=== PATIENT | female | born 1990 | race Caucasian/White ===

== ENCOUNTER 2024-04-23 10:58 | Outpatient (CLI) | payer BC, MEDICAID, SELFPAY ==
--- NOTE | 2024-04-23 11:07 | CTR_ITS ---
PROCEDURE INFORMATION: Exam: CT Chest With Contrast; Diagnostic Exam date and time: 04/23/2024 11:15 AM Age: 34 years old Clinical indication: Condition or disease; Other: Malignant neoplasm of anal canal; Patient HX: Follow up from colonoscopy, recent diagnosis of anal cancer TECHNIQUE: Imaging protocol: Diagnostic computed tomography of the chest with contrast. Radiation optimization: All CT scans at this facility use at least one of these dose optimization techniques: automated exposure control; mA and/or kV adjustment per patient size (includes targeted exams where dose is matched to clinical indication); or iterative reconstruction. Contrast material: OMNI 350; Contrast volume: 100 ml; Contrast route: INTRAVENOUS (IV); COMPARISON: No relevant prior studies available. RADIATION DOSE METRICS: Total DLP (mGy-cm): 450.52 FINDINGS: Thyroid: Grossly unremarkable. Lungs: No focal consolidation. Pleural spaces: No pleural effusion. No pneumothorax. Heart: No cardiomegaly. No pericardial effusion. Mediastinal space: Trachea and central airways are grossly patent. No evidence of mediastinal mass or hematoma. Lymph nodes: No evidence of mediastinal or hilar adenopathy. Vasculature: No aneurysmal dilatation of the thoracic aorta. No evidence of dissection. Though this study is not tailored to evaluate for pulmonary thromboembolism, there is no evidence of PE within limitations of respiratory motion. Bones/joints: No evidence of acute fracture or aggressive osseous lesion. Soft tissues: No fluid collection or hematoma in the superficial soft tissues. PROCEDURE INFORMATION: Exam: CT Abdomen And Pelvis With Contrast Exam date and time: 04/23/2024 11:15 AM Age: 34 years old Clinical indication: Condition or disease; Other: Malignant neoplasm of anal canal; Patient HX: Follow up from colonoscopy, recent diagnosis of anal cancer TECHNIQUE: Imaging protocol: Computed tomography of the abdomen and pelvis with contrast. Radiation optimization: All CT scans at this facility use at least one of these dose optimization techniques: automated exposure control; mA and/or kV adjustment per patient size (includes targeted exams where dose is matched to clinical indication); or iterative reconstruction. Contrast material: OMNI 350; Contrast volume: 100 ml; Contrast route: INTRAVENOUS (IV); COMPARISON: No relevant prior studies available. RADIATION DOSE METRICS: Total DLP (mGy-cm): 450.52 FINDINGS: Liver: No focal hepatic lesion. Gallbladder and biliary ducts: Unremarkable. No intra-hepatic or extra-hepatic biliary dilatation. Pancreas: Unremarkable. Spleen: Unremarkable. Adrenal glands: Unremarkable. Kidneys and ureters: No renal parenchymal abnormality. No hydronephrosis or ureteral stone. Stomach and bowel: There is an anorectal mass with bulky adenopathy in the mesorectal fat and iliac chains bilaterally. For example, there is a 7.6 x 5 cm left iliac chain dhaval mass. There is a 4.4 x 3.0 cm dhaval mass along the left lateral aspect of the sacral promontory. There is a 2.0 x 2.0 cm pathologic node along the right lateral aspect of the rectum in the mesorectal fat (image 68 of series 5). There is a 4 cm mass just above the left adnexa. There is retroperitoneal adenopathy, predominantly along the left common iliac artery. Additional smaller retroperitoneal nodes in the upper abdomen in the para-aortic region are nonenlarged by CT criteria (for example, 6 mm short axis) though remain concerning for dhaval spread of disease. No evidence of bowel obstruction. Appendix: Normal appendix. Intraperitoneal space: No evidence of free air or fluid collection. Vasculature: No aneurysmal dilatation or dissection of the abdominal aorta. The celiac trunk, SMA and MOSES are grossly patent. No evidence of IVC thrombus. The portal vein, SMV and splenic veins are grossly patent. Lymph nodes: As above. Urinary bladder: Grossly unremarkable. Reproductive: Grossly unremarkable. Bones/joints: No evidence of acute fracture or aggressive osseous lesion. Soft tissues: No evidence of fluid collection or hematoma in the superficial soft tissues. CT/CT chest abdpel w/*[id number] IMPRESSION: 1. No evidence of metastatic disease in the chest. IMPRESSION: 1. Anorectal mass with bulky perirectal and iliac chain adenopathy. 2. Prominent though nonenlarged upper abdominal retroperitoneal nodes concerning for dhaval spread of disease. Consider correlation with PET-CT.
[2024-04-23] MEDS: iohexol 350 mg/mL 500 mL Btl (per mL) IV (11:24)
== END 2024-04-23 10:59 | disposition home or self-care (01) ==
LOC: RAD 11:01
PROVIDERS: PCP Family Medicine; Visit Provider Family Medicine
DX: C21.1 Malignant neoplasm of anal canal (principal); R19.00 Intra-abdominal and pelvic swelling, mass and lump, unspecified site; R93.5 Abnormal findings on diagnostic imaging of other abdominal regions, including retroperitoneum
CPT/HCPCS: 71260; 74177; Q9967

== ENCOUNTER 2024-05-22 08:59 | Oncology outpatient (recurring) (ONCR) | payer BC, MEDICAID, SELFPAY ==
[2024-05-09 09:37] LABS: Basophils # 0.1 10^3/uL (0.0-0.1); Basophils % 0.9 %; Eosinophils # 0.2 10^3/uL (0.0-0.8); Eosinophils % 2.4 %; Hematocrit 31.8 % (36-47); Lymphocytes # 1.8 10^3/uL (0.8-4.8); Lymphocytes % 20.7 %; Mean Corpuscular Hemoglobin 19.8 pg (27-33); Mean Corpuscular Volume 73.3 fl (85-98); Mean Platelet Volume 9.5 fL (7.4-10.4); Monocytes # 0.7 10^3/uL (0.2-0.9); Neutrophils # 5.83 10^3/uL (1.8-7.7); Neutrophils % 67.8 %; Nucleated Red Blood Cells % 0 %; Platelet Count 683 10^3/cmm (157-399); Red Blood Count 4.34 10^6/uL (3.85-5.65); Red Cell Distribution Width 27.9 % (12.1-15.1); White Blood Count 8.61 10^3/uL (3.29-11.43)
[2024-05-09 09:59] LABS: Alanine Aminotransferase 10 U/L (0-33); Albumin Level 3.7 g/dL (3.5-5.2); Alkaline Phosphatase 58 U/L (35-105); Anion Gap 15.6 (5-19); Aspartate Amino Transferase 14 U/L (0-32); Blood Urea Nitrogen 9 mg/dL (6-20); Calcium 9.3 mg/dL (8.5-10.5); Carbon Dioxide 25 mmol/L (22-29); Chloride 101 mmol/L (98-107); Creatinine Clr Calc Pharmacy 88.6089; Globulin 3.8 g/dL (1.3-4.6); Glucose 99 mg/dL (65-115); Iron 38 ug/dL (37-145); Osmolality Calculated 283 mOsm/kg (285-295); Percent Saturation 14.6 % (20-50); Potassium 4.6 mmol/L (3.5-5.1); Sodium 137 mmol/L (136-145); Total Bilirubin 0.2 mg/dL (0.15-1.2); Total Iron Binding Capacity 260 mcg/dl; Total Protein 7.5 g/dL (6.6-8.7); Unsaturated Iron Binding 222 ug/dL (112-347)
[2024-05-09 10:56] LABS: Carcinoembryonic Antigen 351.8 ng/mL (0.0-4.7)
--- NOTE | 2024-05-22 09:27 | PETR_ITS ---
PROCEDURE INFORMATION: Exam: PET/CT Skull Base to Mid-thigh Exam date and time: 05/22/2024 8:54 AM Age: 34 years old Clinical indication: Condition or disease; Primary cancer: Malignant neoplasm of the rectum; Initial oncological staging assessment; Additional info: Rectal cancer LABS AND CLINICAL REPORTS: Glucose: 126 mg/dl Treatment strategy for malignancy (PET staging): Initial Staging (PI) TECHNIQUE: Imaging protocol: Following at least four-hour fasting and following the injection of radiopharmaceutical, low dose CT images were obtained. Then, PET images were obtained. Attenuation corrected images were constructed using the CT scan. Fused images of PET and CT were reviewed. The standardized uptake values (SUV) reported below are maximum values within a region of interest, expressed in gm/ml. Exam includes orbital meatal line to mid-thigh. Radiopharmaceutical: 11.7 mCi F-18 FDG (Fluorodeoxyglucose), IV. Time of imaging post radiopharmaceutical administration: 1 hour Injection site: Left antecubital vein COMPARISON: CT chest abdpel w/*[id number] 04/23/2024 11:15 AM FINDINGS: Brain: Visualized brain has normal physiologic uptake. Pharynx: No abnormal uptake. Larynx: Bilateral symmetric uptake compatible with benign finding. Lungs, pleura and trachea: No abnormal uptake. No lung nodules or masses. No pleural effusion. Heart: Normal physiologic uptake. There is no cardiomegaly. No coronary artery calcification is visualized. There is no pericardial effusion. Mediastinal space: No abnormal uptake. Liver: No abnormal uptake. Gallbladder and biliary ducts: No abnormal uptake. No calcified gallstones. Pancreas: No abnormal uptake. Spleen: No abnormal uptake. No splenomegaly. Adrenal glands: No abnormal uptake. No nodules. Kidneys and ureters: Normal physiologic uptake. No hydronephrosis. Stomach and bowel: Concentric wall thickening involving nearly 10 cm of the rectum from the anorectal junction to the rectosigmoid junction with the highest uptake of 16.5 SUV represents known primary malignancy. No abnormal dilatation of the bowel to suggest bowel obstruction. Moderate amount of stool in the colon proximally to the rectum for clinical correlation with constipation. Vasculature: No abnormal uptake. Lymph nodes: Multiple superior rectal metastatic lymph nodes measuring up to 1.9 x 1.8 cm with the highest uptake 5.6 SUV. Bulky about 8.1 x 5.4 cm left pelvic external iliac/obturator metastatic lymphadenopathy with the highest uptake of 11.1 SUV. About 4.3 x 3.5 cm left common iliac lymphadenopathy inferiorly on axial image 197 measures 11.2 SUV. The highest 1.8 x 1.6 cm left upper common iliac/lower para-aortic lymphadenopathy at L3 level ( axial image 183) measures 7.5 SUV. 2 x 2 cm right internal iliac lymph node on axial image 224 suggestive of metastatic lymphadenopathy shows unusually lower uptake of 2.6 SUV. No FDG avid lymphadenopathy in the head, neck, chest, and extremities. Skeleton: No abnormal uptake in the visualized axial and appendicular skeleton. Soft tissues: No abnormal uptake in the visualized head, neck, chest, abdomen, pelvis, and extremities. PET/PET skull to thigh INIT [id number] IMPRESSION: Large primary tumor extending from the and rectal junction to the rectosigmoid junction measures 16.5 SUV. Superior rectal metastatic lymphadenopathy measuring up to 5.6 SUV and right internal iliac/obturator nodes with low-grade uptake of 2.6 SUV. Bulky left external iliac lymphadenopathy measuring 11.1 SUV, and smaller volume left common iliac lymphadenopathy (11.2 SUV) and lower para-aortic lymphadenopathy (7.5 SUV). No FDG avid metastatic disease outside of the pelvis.
== END 2024-05-23 23:59 | disposition home or self-care (01) ==
LOC: ONCMED 10:07 → RAD 05-23 00:01 → ONCMED 05-23 12:51
PROVIDERS: PCP Family Medicine; Visit Provider Internal Medicine Medical Oncology
DX: C20 Malignant neoplasm of rectum (principal); Z53.9 Procedure and treatment not carried out, unspecified reason
CPT/HCPCS: 36415; 78815; 80053; 82378; 83540; 83550; 85025; A9552

== ENCOUNTER 2024-05-22 09:35 | Day surgery (SDC) | payer BC, MEDICAID, SELFPAY ==
[2024-05-22] VITALS (7 sets, daily range): BP systolic 91–104; BP diastolic 52–68; PULSE 74–104; RESP 10–20; TEMP 36.4–36.7; O2SAT 96–100; BMI 17.1
--- NOTE | 2024-05-22 09:50 | XRR_ITS ---
PROCEDURE INFORMATION: Exam: XR Chest Exam date and time: 05/22/2024 11:29 AM Age: 34 years old Clinical indication: Device placement; Other: Mediport placement; Prior surgery; Surgery date: Post-operative (0-2 days); Additional info: Postop mediport placement TECHNIQUE: Imaging protocol: Radiologic exam of the chest. Views: 1 view. COMPARISON: CT chest abdpel w/*[id number] 04/23/2024 11:15 AM FINDINGS: Tubes, catheters and devices: Infusion port enters from the left and terminates in the SVC. Lungs: Unremarkable. No consolidation. Pleural spaces: Unremarkable. No pleural effusion. No pneumothorax. Heart/Mediastinum: Unremarkable. No cardiomegaly. Bones/joints: Unremarkable. XR/XR chest 1V portable [id number] IMPRESSION: No acute findings.
--- NOTE | 2024-05-22 09:50 | SC_ITS ---
WS: [id number] INTRAOPERATIVE TECHNIQUE: 2 Spot fluoroscopic images for intraoperative purposes. FLUOROSCOPY TIME: 2.0 seconds CLINICAL INFORMATION: Mediport placement FINDINGS: LEFT portacatheter tip in the SVC. No visualized pneumothorax. SC/C-arm FL for CVA [id number] IMPRESSION: Images obtained for intraoperative purposes.
--- NOTE | 2024-05-22 09:52 | W.PM.OPSUD ---
Surgery/Procedure H&P Update DATE OF PROCEDURE: May 22, 2024 DATE H&P PERFORMED: 05/17/24 H&P UPDATE INFORMATION: I have reviewed H&P completed within last 30 days, I have examined patient prior to procedure and No changes to prior documentation PLANNED PROCEDURE: Operation Date: 05/22/24 11:05 Proposed Procedures p Portacath Placement 11626, C20(Not Applicable) - Raheel Brown, DO
--- NOTE | 2024-05-22 10:23 | ANES.PREANE2 ---
Pre-Anesthetic Assessment Height/Weight: Height 1.68 m Weight 48.081 kg Temp Pulse Resp BP Pulse Ox O2 Del Method 97.5 F L 104 H 18 104/67 100 Room Air 05/22/24 10:08 05/22/24 10:08 05/22/24 10:08 05/22/24 10:08 05/22/24 10:08 05/22/24 10:08 Operation Date: 05/22/24 11:05 Proposed Procedures p Portacath Placement 33491, C20(Not Applicable) - Raheel Brown DO Familial anesthetic complications: none Was Beta Patti taken within 24 hours: N/A Was Clonidine taken within 24 hours: N/A Last intake: Intake Last Liquid Date 05/21/24 Last Liquid Time 23:50 Last Solid Date 05/21/24 Last Solid Time 23:50 Social No alcohol and No tobacco Exam alert, oriented x 3, clear to auscultation bilaterally and regular rate & rhythm Airway Mallampati: Class I Dentition: full GI anorectal cancer Anesthetic Plan ASA status: 2 Anesthesia: MAC Risk of > 500 ml blood loss (7ml/kg in children): No Medications/Allergies Home Medications Medication Instructions Recorded Confirmed Last Taken Type CBD gummy 5 mg PO 1XD PRN Pain 05/09/24 05/17/24 05/21/24 History acetaminophen 325 mg capsule 325 mg PO QID PRN Pain 05/09/24 05/21/24 Unknown History ferrous sulfate 325 mg (65 mg 325 mg PO TID 05/09/24 05/21/24 05/20/24 History iron) tablet iodoral 10 mg PO DAILY 05/09/24 05/21/24 05/21/24 History multivitamin 1 tab PO DAILY 05/09/24 05/21/24 Unknown History polyethylene glycol 3350 17 4 g PO DAILY PRN Constipation 05/09/24 05/21/24 Unknown History gram/dose oral powder (Miralax) [employer] sea essentials 1 oz PO DAILY 05/09/24 05/17/24 05/21/24 History Allergies Allergy/AdvReac Type Severity Reaction Status Date / Time shellfish derived Allergy Mild nothing Verified 05/09/24 09:02 noticeable PFSH Anesthesia Medical History Iron deficiency anemia Rectal cancer Surgical History History of colonoscopy (04/19/24) Family History Other Cancer Stroke Denies family history of Diabetes CAD (coronary artery disease) Chronic kidney disease (CKD) Lung disease Social History Smoking and tobacco/nicotine status: never used tobacco/nicotine Second hand smoke exposure: Yes Alcohol intake: never Substance/Drug Use: never Lives independently: Yes Marital status: Single Female Reproductive History Date of last menstrual period: 05/18/24 Data Anesthesia Cardiac Studies: No Data to Display
[2024-05-22] MEDS: sodium chloride 0.9% 1,000 ML 30 ML IV (10:36)
[2024-05-22 10:39] LABS: OR HCG Qualitative Urine Negative (Negative)
[2024-05-22] MEDS: ceFAZolin 2,000 mg SDV 2000 MG IVP (10:43)
[2024-05-22] MEDS: lidocaine-epi 1% 20 mL INJ 10 ML INJECTION (11:03)
[2024-05-22] MEDS: heparin, porcine 1,000 unit/mL INJ 10 mL 10000 UNIT INJECTION (11:03)
--- NOTE | 2024-05-22 11:11 | P.OP_ITS ---
Operative Report Date of procedure: May 22, 2024 Surgeon: Raheel Brown DO Brief History: This is a very pleasant 34-year-old female who came to my office for Mediport placement for chemotherapy access to treat her rectal cancer. Mediport placement was indicated. The risk and benefits were explained and documented. Procedure: Pre-op diagnosis: Post-op diagnosis: same Procedure done: Mediport placement Intraoperative interpretation of fluoroscopy Implants: PowerPort Specimens removed/disposition: None Surgeon: Raheel Brown DO Anesthesia: MAC and Local Estimated blood loss (mL): 5 Complications: None apparent Procedure: The patient was taken to the operating room and placed supine on the operating room table. All bony prominences were padded. She was given IV sedation and monitored throughout the case by the anesthesia personnel. SCDs were placed and turned on. The arms were tucked to the side. Patient received Ancef 2 g preoperatively IV. The bilateral chest wall was prepped and draped in usual sterile fashion using chlorhexidine base prep. Sterile drapes were applied. We did procedure pause prior to beginning. An 18 gauge needle was placed in the left subclavian vein. Dark, nonpulsatile blood was aspirated. A guidewire was placed through the needle centrally toward the atrial/vena caval junction. Fluoroscopy visualized good placement. The n eedle was removed and the guidewire was clipped to the drape with a hemostat. Further local anesthetic was infiltrated in the soft tissues of the left chest wall and a #15 blade was used to make a horizontal skin incision. A subcutaneous Mediport pocket was created using Bovie cautery, dissecting down through the skin and subcutaneous tissues. Meticulous hemostasis was achieved. The Mediport was sutured in position using 3-0 vicryl suture x2 stitches. A #15 blade was used to make a small skin edgar around the guidewire insertion area. The Mediport tubing was tunneled through the subcutaneous tissues up to the needle insertion location. A dilator with a peel-away sheath was placed over the guidewire and placed centrally. After measuring the Mediport tubing was cut to length so that the tip would end at the atrial/vena caval junction. The inner cannula and the guidewire were removed, leaving the dilator sheath in place. The Mediport was flushed. The tip of the catheter was inserted through the peel-away sheath and the peel-away sheath removed in the standard fashion. The Mediport was accessed with a straight Ramos needle and dark, nonpulsatile blood was aspirated and flushed usi ng heparinized saline to hep-lock the Mediport. Final fluoroscopy visualization showed no kink in the catheter and the tip of the Mediport tubing near the atrial/vena caval junction. There is no obvious pneumothorax. Both skin incisions were thoroughly irrigated and suctioned dry. Meticulous hemostasis noted. The dermis was approximated with 3-0 Vicryl in an interrupted fashion. Skin was closed with Dermabond. Patient was awakened from anesthesia and transferred via her cart to the recovery room in stable condition. All needle, sponge, and instrument counts were correct per the operating personnel x2 counts.
--- NOTE | 2024-05-22 12:30 | ANE.PACU2 ---
Inpatient post-anesthesia follow up: Airway intact: Yes Vital signs: Temperature 97.8 F Pulse Rate 74 Respiratory Rate 18 Blood Pressure 100/68 Pulse Oximetry 100 Oxygen Delivery Me thod Room Air Oxygen Flow Rate Fraction of Inspir ed Oxygen Hydration adequate: Yes Nausea and vomiting: No Pain level: 1 Mental status: Baseline
== END 2024-05-22 12:30 | disposition home or self-care (01) ==
PROVIDERS: PCP Family Medicine; Visit Provider Surgery
PROC: (CPT 36561; principal; 2024-05-22 11:05)
DX: C20 Malignant neoplasm of rectum (principal)
CPT/HCPCS: 36561; 71045; 76000; 77001; 81025; C1788; J0690; J1644; J2250; J2704; J3010; J7030

== ENCOUNTER 2024-06-18 09:00 | Oncology outpatient (recurring) (ONCR) | payer BC, MEDICAID, SELFPAY ==
[2024-05-24 08:34] VITALS: BP 93/61; PULSE 90; RESP 16; TEMP 36.7; O2SAT 99
[2024-05-24] MEDS: sodium chloride 0.9% 500 ML 75 ML IV (08:57)
[2024-05-24] MEDS: diphenhydrAMINE 50 mg/mL SDV 1mL 25 MG IVP (08:58)
[2024-05-24] MEDS: acetaminophen 325 mg Tablet 650 MG PO (08:58)
[2024-05-24] MEDS: iron dextran 25 MG in SYRINGE 1 EACH 30 MG IVP (09:33)
[2024-05-24] MEDS: iron dextran 1,200 MG in sodium chloride 0.9% 1,000 ML 275 MG IV (11:10)
[2024-05-24 15:12] VITALS: BP 93/58; PULSE 75; RESP 16; O2SAT 100
[2024-05-28 08:49] LABS: Basophils # 0.1 10^3/uL (0.0-0.1); Basophils % 0.8 %; Eosinophils # 0.2 10^3/uL (0.0-0.8); Eosinophils % 2.9 %; Hematocrit 26.5 % (36-47); Lymphocytes # 1.5 10^3/uL (0.8-4.8); Mean Corpuscular HGB Conc 27.5 g/dL (30-55); Mean Corpuscular Hemoglobin 20.8 pg (27-33); Mean Corpuscular Volume 75.5 fl (85-98); Mean Platelet Volume 9.4 fL (7.4-10.4); Monocytes % 13.5 %; Neutrophils # 4.48 10^3/uL (1.8-7.7); Neutrophils % 61.7 %; Nucleated Red Blood Cells % 0 %; Platelet Count 414 10^3/cmm (157-399); Red Blood Count 3.51 10^6/uL (3.85-5.65); Red Cell Distribution Width 23.9 % (12.1-15.1); White Blood Count 7.27 10^3/uL (3.29-11.43)
[2024-05-28 09:31] LABS: Alanine Aminotransferase 9 U/L (0-33); Albumin Level 3.7 g/dL (3.5-5.2); Alkaline Phosphatase 52 U/L (35-105); Anion Gap 15.7 (5-19); Aspartate Amino Transferase 20 U/L (0-32); Blood Urea Nitrogen 8 mg/dL (6-20); Calcium 8.7 mg/dL (8.5-10.5); Carbon Dioxide 23 mmol/L (22-29); Chloride 99 mmol/L (98-107); Globulin 3.1 g/dL (1.3-4.6); Glucose 103 mg/dL (65-115); Osmolality Calculated 277 mOsm/kg (285-295); Potassium 3.7 mmol/L (3.5-5.1); Sodium 134 mmol/L (136-145); Total Bilirubin 0.2 mg/dL (0.15-1.2); Total Protein 6.8 g/dL (6.6-8.7)
[2024-05-28] MEDS: palonosetron 0.25 mg/5 mL SDV IVP (10:25)
[2024-05-28] MEDS: dextrose 5% 250 ML 75 ML IV (10:25)
[2024-05-28] MEDS: dexamethasone 4 mg/mL INJ 5 mL 12 MG IVP (10:26)
[2024-05-28] MEDS: leucovorin 610 MG in dextrose 5% 250 ML 150 MG IV (11:21)
[2024-05-28] MEDS: oxaliplatin 100 MG, oxaliplatin 30 MG in dextrose 5% 250 ML 138 MG IV (11:22)
[2024-05-28 13:31] VITALS: BP 99/63; PULSE 88; RESP 16; TEMP 36.6; O2SAT 99
[2024-05-28] MEDS: fluorouraciL 50 mg/ml MDV 100 mL 600 MG IVP (13:33)
[2024-05-28] MEDS: fluorouraciL 3,650 MG, elastomeric pump 1 PUMP in sodium chloride 0.9% (100 ml) 19 ML IV (13:40)
[2024-05-30 12:30] VITALS: BP 118/74; PULSE 66; RESP 16; TEMP 36.5; O2SAT 99
[2024-06-05 13:36] LABS: Basophils % 0.3 %; Eosinophils # 0.1 10^3/uL (0.0-0.8); Eosinophils % 1.7 %; Hematocrit 27.7 % (36-47); Lymphocytes # 1.3 10^3/uL (0.8-4.8); Lymphocytes % 23.4 %; Mean Corpuscular HGB Conc 28.5 g/dL (30-55); Mean Corpuscular Volume 77.2 fl (85-98); Mean Platelet Volume 9.8 fL (7.4-10.4); Monocytes # 0.7 10^3/uL (0.2-0.9); Monocytes % 11.5 %; Neutrophils # 3.58 10^3/uL (1.8-7.7); Neutrophils % 62.8 %; Nucleated Red Blood Cells % 0 %; Platelet Count 393 10^3/cmm (157-399); Red Blood Count 3.59 10^6/uL (3.85-5.65); Red Cell Distribution Width 23.9 % (12.1-15.1); White Blood Count 5.72 10^3/uL (3.29-11.43)
[2024-06-05 13:53] LABS: Alanine Aminotransferase 11 U/L (0-33); Albumin Level 3.7 g/dL (3.5-5.2); Alkaline Phosphatase 48 U/L (35-105); Anion Gap 15.6 (5-19); Aspartate Amino Transferase 18 U/L (0-32); Blood Urea Nitrogen 11 mg/dL (6-20); Calcium 8.2 mg/dL (8.5-10.5); Carbon Dioxide 24 mmol/L (22-29); Chloride 99 mmol/L (98-107); Glomerular Filtration Rate 83.1 mL/min (90-130); Glucose 108 mg/dL (65-115); Osmolality Calculated 280 mOsm/kg (285-295); Potassium 3.6 mmol/L (3.5-5.1); Sodium 135 mmol/L (136-145); Total Bilirubin 0.2 mg/dL (0.15-1.2); Total Protein 6.7 g/dL (6.6-8.7)
[2024-06-11 08:01] LABS: Basophils % 0.6 %; Eosinophils # 0.2 10^3/uL (0.0-0.8); Eosinophils % 3.6 %; Lymphocytes # 1.6 10^3/uL (0.8-4.8); Lymphocytes % 31.7 %; Mean Corpuscular HGB Conc 27.6 g/dL (30-55); Mean Corpuscular Hemoglobin 22.5 pg (27-33); Mean Corpuscular Volume 81.5 fl (85-98); Mean Platelet Volume 9.7 fL (7.4-10.4); Neutrophils # 2.17 10^3/uL (1.8-7.7); Neutrophils % 43.7 %; Nucleated Red Blood Cells % 0 %; Platelet Count 403 10^3/cmm (157-399); Red Blood Count 3.56 10^6/uL (3.85-5.65); Red Cell Distribution Width 26.4 % (12.1-15.1); White Blood Count 4.96 10^3/uL (3.29-11.43)
[2024-06-11 08:16] LABS: Alanine Aminotransferase 9 U/L (0-33); Albumin Level 3.4 g/dL (3.5-5.2); Alkaline Phosphatase 43 U/L (35-105); Anion Gap 14.6 (5-19); Aspartate Amino Transferase 19 U/L (0-32); Blood Urea Nitrogen 8 mg/dL (6-20); Calcium 8.4 mg/dL (8.5-10.5); Carbon Dioxide 25 mmol/L (22-29); Chloride 104 mmol/L (98-107); Globulin 2.9 g/dL (1.3-4.6); Glucose 101 mg/dL (65-115); Osmolality Calculated 288 mOsm/kg (285-295); Potassium 3.6 mmol/L (3.5-5.1); Sodium 140 mmol/L (136-145); Total Bilirubin 0.3 mg/dL (0.15-1.2); Total Protein 6.3 g/dL (6.6-8.7)
[2024-06-11] MEDS: dextrose 5% 250 ML 75 ML IV (09:39)
[2024-06-11] MEDS: dexamethasone 4 mg/mL INJ 5 mL 12 MG IVP (09:40)
[2024-06-11] MEDS: palonosetron 0.25 mg/5 mL SDV IVP (09:47)
[2024-06-11] MEDS: iron sucrose 200 MG in sodium chloride 0.9% (100 ml) 100 ML 220 MG IV (10:24)
[2024-06-11] MEDS: leucovorin 610 MG in dextrose 5% 250 ML 62.5 MG IV (11:11)
[2024-06-11] MEDS: oxaliplatin 100 MG, oxaliplatin 30 MG in dextrose 5% 250 ML 138 MG IV (11:12)
[2024-06-11] MEDS: fluorouraciL 50 mg/ml MDV 100 mL 600 MG IVP (13:33)
[2024-06-11] MEDS: fluorouraciL 3,650 MG, elastomeric pump 1 PUMP in sodium chloride 0.9% (100 ml) 19 ML IV (13:41)
[2024-06-11 14:10] VITALS: BP 97/60; PULSE 82; TEMP 36.4; O2SAT 99
[2024-06-13 11:35] VITALS: BP 92/59; PULSE 98; RESP 16; TEMP 36.3; O2SAT 99
[2024-06-18 09:09] VITALS: BP 99/65; PULSE 96; RESP 18; TEMP 36.6; O2SAT 100
[2024-06-18] MEDS: iron sucrose 200 MG in sodium chloride 0.9% (100 ml) 100 ML 220 MG IV (09:22)
[2024-06-18 10:10] VITALS: BP 92/54; PULSE 88; RESP 16; TEMP 36.8; O2SAT 100
[2024-06-26 07:51] LABS: Basophils # 0.1 10^3/uL (0.0-0.1); Basophils % 1.2 %; Eosinophils # 0.1 10^3/uL (0.0-0.8); Eosinophils % 2.7 %; Hematocrit 34.1 % (36-47); Lymphocytes # 2.5 10^3/uL (0.8-4.8); Lymphocytes % 47.7 %; Mean Corpuscular HGB Conc 29.3 g/dL (30-55); Mean Corpuscular Hemoglobin 25.5 pg (27-33); Mean Platelet Volume 9.5 fL (7.4-10.4); Monocytes # 1.1 10^3/uL (0.2-0.9); Monocytes % 21.5 %; Neutrophils # 1.39 10^3/uL (1.8-7.7); Neutrophils % 26.9 %; Nucleated Red Blood Cells % 0 %; Platelet Count 295 10^3/cmm (157-399); Red Blood Count 3.92 10^6/uL (3.85-5.65); Red Cell Distribution Width 26.9 % (12.1-15.1); White Blood Count 5.16 10^3/uL (3.29-11.43)
[2024-06-26 08:14] LABS: Carcinoembryonic Antigen 224.4 ng/mL (0.0-4.7)
[2024-06-26 08:27] LABS: Alanine Aminotransferase 11 U/L (0-33); Albumin Level 3.9 g/dL (3.5-5.2); Alkaline Phosphatase 54 U/L (35-105); Anion Gap 16.3 (5-19); Aspartate Amino Transferase 14 U/L (0-32); Blood Urea Nitrogen 9 mg/dL (6-20); Calcium 8.8 mg/dL (8.5-10.5); Carbon Dioxide 24 mmol/L (22-29); Chloride 103 mmol/L (98-107); Creatinine Clr Calc Pharmacy 104.5819; Globulin 2.8 g/dL (1.3-4.6); Glomerular Filtration Rate 115.9 mL/min (90-130); Glucose 92 mg/dL (65-115); Osmolality Calculated 286 mOsm/kg (285-295); Potassium 4.3 mmol/L (3.5-5.1); Sodium 139 mmol/L (136-145); Total Bilirubin 0.2 mg/dL (0.15-1.2); Total Protein 6.7 g/dL (6.6-8.7)
== END 2024-06-23 23:59 | disposition home or self-care (01) ==
PROVIDERS: PCP Family Medicine; Visit Provider Internal Medicine Medical Oncology
DX: D50.0 Iron deficiency anemia secondary to blood loss (chronic) (principal); Z53.9 Procedure and treatment not carried out, unspecified reason; Z79.899 Other long term (current) drug therapy; C20 Malignant neoplasm of rectum
CPT/HCPCS: 36591; 80053; 85025; 96365; 96366; 96367; 96368; 96375; 96411; 96413; 96415; 96416; 96523; J0640; J1100; J1200; J1750; J1756; J2469; J7030; J7040; J7060; J9190; J9263

== ENCOUNTER 2024-07-17 13:45 | Oncology outpatient (recurring) (ONCR) | payer BC, MEDICAID, SELFPAY ==
[2024-06-26 07:51] LABS: Basophils # 0.1 10^3/uL (0.0-0.1); Basophils % 1.2 %; Eosinophils # 0.1 10^3/uL (0.0-0.8); Eosinophils % 2.7 %; Hematocrit 34.1 % (36-47); Lymphocytes # 2.5 10^3/uL (0.8-4.8); Lymphocytes % 47.7 %; Mean Corpuscular HGB Conc 29.3 g/dL (30-55); Mean Corpuscular Hemoglobin 25.5 pg (27-33); Mean Platelet Volume 9.5 fL (7.4-10.4); Monocytes # 1.1 10^3/uL (0.2-0.9); Monocytes % 21.5 %; Neutrophils # 1.39 10^3/uL (1.8-7.7); Neutrophils % 26.9 %; Nucleated Red Blood Cells % 0 %; Platelet Count 295 10^3/cmm (157-399); Red Blood Count 3.92 10^6/uL (3.85-5.65); Red Cell Distribution Width 26.9 % (12.1-15.1); White Blood Count 5.16 10^3/uL (3.29-11.43)
[2024-06-26 08:14] LABS: Carcinoembryonic Antigen 224.4 ng/mL (0.0-4.7)
[2024-06-26 08:27] LABS: Alanine Aminotransferase 11 U/L (0-33); Albumin Level 3.9 g/dL (3.5-5.2); Alkaline Phosphatase 54 U/L (35-105); Anion Gap 16.3 (5-19); Aspartate Amino Transferase 14 U/L (0-32); Blood Urea Nitrogen 9 mg/dL (6-20); Calcium 8.8 mg/dL (8.5-10.5); Carbon Dioxide 24 mmol/L (22-29); Chloride 103 mmol/L (98-107); Creatinine Clr Calc Pharmacy 104.5819; Globulin 2.8 g/dL (1.3-4.6); Glomerular Filtration Rate 115.9 mL/min (90-130); Glucose 92 mg/dL (65-115); Osmolality Calculated 286 mOsm/kg (285-295); Potassium 4.3 mmol/L (3.5-5.1); Sodium 139 mmol/L (136-145); Total Bilirubin 0.2 mg/dL (0.15-1.2); Total Protein 6.7 g/dL (6.6-8.7)
[2024-06-26] MEDS: iron sucrose 200 MG in sodium chloride 0.9% (100 ml) 100 ML 220 MG IV (08:54)
[2024-06-26] MEDS: dextrose 5% 250 ML 75 ML IV (09:44)
[2024-06-26] MEDS: palonosetron 0.25 mg/5 mL SDV IVP (09:47)
[2024-06-26] MEDS: dexamethasone 4 mg/mL INJ 5 mL 12 MG IVP (09:49)
[2024-06-26] MEDS: oxaliplatin 100 MG, oxaliplatin 30 MG in dextrose 5% 250 ML 138 MG IV (10:22)
[2024-06-26] MEDS: leucovorin 610 MG in dextrose 5% 250 ML 62.5 MG IV (10:22)
[2024-06-26] MEDS: fluorouraciL 3,650 MG, elastomeric pump 1 PUMP in sodium chloride 0.9% (100 ml) 19 ML IV (13:25)
[2024-06-26 16:21] VITALS: BP 88/57; PULSE 86; TEMP 36.3; O2SAT 99
[2024-07-03 13:15] VITALS: BP 92/62; PULSE 97; RESP 16; TEMP 37.2; O2SAT 98
[2024-07-03] MEDS: iron sucrose 200 MG in sodium chloride 0.9% (100 ml) 100 ML 220 MG IV (13:23)
[2024-07-03] MEDS: sodium chloride 0.9% 250 ML 75 ML IV (13:23)
[2024-07-03 13:33] LABS: Basophils # 0.1 10^3/uL (0.0-0.1); Basophils % 1.1 %; Eosinophils # 0.1 10^3/uL (0.0-0.8); Eosinophils % 2.4 %; Hematocrit 32.3 % (36-47); Lymphocytes # 2.1 10^3/uL (0.8-4.8); Lymphocytes % 39.4 %; Mean Corpuscular Hemoglobin 26.5 pg (27-33); Mean Corpuscular Volume 85.4 fl (85-98); Mean Platelet Volume 9.9 fL (7.4-10.4); Monocytes # 0.6 10^3/uL (0.2-0.9); Monocytes % 11.3 %; Neutrophils # 2.42 10^3/uL (1.8-7.7); Neutrophils % 45.4 %; Nucleated Red Blood Cells % 0 %; Platelet Count 295 10^3/cmm (157-399); Red Blood Count 3.78 10^6/uL (3.85-5.65); Red Cell Distribution Width 24.8 % (12.1-15.1); White Blood Count 5.33 10^3/uL (3.29-11.43)
[2024-07-03 13:50] LABS: Alanine Aminotransferase 12 U/L (0-33); Alkaline Phosphatase 48 U/L (35-105); Aspartate Amino Transferase 16 U/L (0-32); Blood Urea Nitrogen 9 mg/dL (6-20); Calcium 8.8 mg/dL (8.5-10.5); Carbon Dioxide 25 mmol/L (22-29); Chloride 102 mmol/L (98-107); Creatinine Clr Calc Pharmacy 103.1348; Globulin 2.8 g/dL (1.3-4.6); Glomerular Filtration Rate 115.9 mL/min (90-130); Glucose 114 mg/dL (65-115); Osmolality Calculated 288 mOsm/kg (285-295); Sodium 139 mmol/L (136-145); Total Bilirubin 0.2 mg/dL (0.15-1.2); Total Protein 6.8 g/dL (6.6-8.7)
[2024-07-03 14:07] VITALS: BP 109/69; PULSE 94; TEMP 36.5; O2SAT 99
[2024-07-10 07:52] LABS: Basophils # 0.1 10^3/uL (0.0-0.1); Basophils % 1.1 %; Eosinophils # 0.1 10^3/uL (0.0-0.8); Eosinophils % 1.7 %; Hematocrit 34.6 % (36-47); Lymphocytes # 2.4 10^3/uL (0.8-4.8); Lymphocytes % 35.8 %; Mean Corpuscular HGB Conc 30.6 g/dL (30-55); Mean Corpuscular Hemoglobin 27.1 pg (27-33); Mean Corpuscular Volume 88.5 fl (85-98); Mean Platelet Volume 9.7 fL (7.4-10.4); Monocytes # 1.3 10^3/uL (0.2-0.9); Monocytes % 19.9 %; Neutrophils # 2.74 10^3/uL (1.8-7.7); Neutrophils % 41.2 %; Nucleated Red Blood Cells % 0 %; Platelet Count 344 10^3/cmm (157-399); Red Blood Count 3.91 10^6/uL (3.85-5.65); Red Cell Distribution Width 24.1 % (12.1-15.1); White Blood Count 6.64 10^3/uL (3.29-11.43)
[2024-07-10 08:49] LABS: Alanine Aminotransferase 7 U/L (0-33); Albumin Level 3.9 g/dL (3.5-5.2); Alkaline Phosphatase 50 U/L (35-105); Anion Gap 16.1 (5-19); Aspartate Amino Transferase 14 U/L (0-32); Blood Urea Nitrogen 8 mg/dL (6-20); Calcium 8.8 mg/dL (8.5-10.5); Carbon Dioxide 25 mmol/L (22-29); Chloride 103 mmol/L (98-107); Creatinine Clr Calc Pharmacy 102.2911; Globulin 3.3 g/dL (1.3-4.6); Glomerular Filtration Rate 115.9 mL/min (90-130); Glucose 104 mg/dL (65-115); Osmolality Calculated 289 mOsm/kg (285-295); Potassium 4.1 mmol/L (3.5-5.1); Sodium 140 mmol/L (136-145); Total Bilirubin 0.3 mg/dL (0.15-1.2); Total Protein 7.2 g/dL (6.6-8.7)
[2024-07-10] MEDS: sodium chloride 0.9% 250 ML 220 ML IV (09:24)
[2024-07-10] MEDS: iron sucrose 200 MG in sodium chloride 0.9% (100 ml) 100 ML 220 MG IV (09:29)
[2024-07-10] MEDS: palonosetron 0.25 mg/5 mL SDV IVP (10:26)
[2024-07-10] MEDS: dexamethasone 4 mg/mL INJ 5 mL 12 MG IVP (10:29)
[2024-07-10] MEDS: dextrose 5% 250 ML 75 ML IV (10:37)
[2024-07-10] MEDS: leucovorin 610 MG in dextrose 5% 250 ML 62.5 MG IV (11:16)
[2024-07-10] MEDS: oxaliplatin 100 MG, oxaliplatin 30 MG in dextrose 5% 250 ML 138 MG IV (11:16)
[2024-07-10 13:38] VITALS: BP 89/55; PULSE 76; RESP 16; TEMP 36.4; O2SAT 99
[2024-07-10] MEDS: fluorouraciL 3,650 MG, elastomeric pump 1 PUMP in sodium chloride 0.9% (100 ml) 19 ML IV (13:45)
[2024-07-12 11:23] VITALS: BP 92/60; PULSE 87
[2024-07-17 14:12] LABS: Basophils % 0.7 %; Eosinophils # 0.2 10^3/uL (0.0-0.8); Eosinophils % 3.1 %; Hematocrit 34.6 % (36-47); Lymphocytes # 1.8 10^3/uL (0.8-4.8); Lymphocytes % 33.3 %; Mean Corpuscular HGB Conc 30.9 g/dL (30-55); Mean Corpuscular Volume 87.4 fl (85-98); Mean Platelet Volume 9.6 fL (7.4-10.4); Monocytes # 0.5 10^3/uL (0.2-0.9); Monocytes % 9.8 %; Neutrophils # 2.83 10^3/uL (1.8-7.7); Neutrophils % 52.4 %; Nucleated Red Blood Cells % 0 %; Platelet Count 346 10^3/cmm (157-399); Red Blood Count 3.96 10^6/uL (3.85-5.65); Red Cell Distribution Width 21.8 % (12.1-15.1); White Blood Count 5.41 10^3/uL (3.29-11.43)
[2024-07-17 14:32] LABS: Alanine Aminotransferase 14 U/L (0-33); Alkaline Phosphatase 50 U/L (35-105); Anion Gap 14.9 (5-19); Aspartate Amino Transferase 22 U/L (0-32); Blood Urea Nitrogen 9 mg/dL (6-20); Calcium 8.9 mg/dL (8.5-10.5); Carbon Dioxide 26 mmol/L (22-29); Chloride 103 mmol/L (98-107); Creatinine Clr Calc Pharmacy 87.6781; Globulin 3.2 g/dL (1.3-4.6); Glucose 148 mg/dL (65-115); Osmolality Calculated 291 mOsm/kg (285-295); Potassium 3.9 mmol/L (3.5-5.1); Sodium 140 mmol/L (136-145); Total Bilirubin 0.2 mg/dL (0.15-1.2); Total Protein 7.2 g/dL (6.6-8.7)
== END 2024-07-23 23:59 | disposition home or self-care (01) ==
PROVIDERS: Nurse Practitioner Family; PCP Family Medicine; Visit Provider Internal Medicine Medical Oncology
DX: C20 Malignant neoplasm of rectum (principal)
CPT/HCPCS: 36591; 80053; 82378; 85025; 96365; 96367; 96368; 96375; 96413; 96415; 96416; 96523; J0640; J1100; J1756; J2469; J7050; J7060; J9190; J9263

== ENCOUNTER 2024-08-07 10:15 | Observation (INO) | payer BC, MEDICAID, SELFPAY ==
[2024-08-07] VITALS (16 sets, daily range): BP systolic 71–101; BP diastolic 44–65; PULSE 75–121; RESP 16–22; TEMP 36.3–37.7; O2SAT 97–100; BMI 16.6
--- NOTE | 2024-08-07 10:29 | W.ED.ABDPA2 ---
Documented by User: STACEY Pimentel 08/07/24 11:01 HPI - Abdominal Pain General: Chief Complaint: Skin/Abscess/Foreign Body Stated Complaint: rectal abcess - dr brown sent Time Seen by Provider: 08/07/24 10:17 Source: patient Mode of arrival: ambulatory Limitations: no limitations History of Present Illness: Patient is a 34-year-old female with a known history of rectal adenocarcinoma undergoing chemotherapy here in the emergency department after she was instructed to come here for admission for drainage of a perirectal abscess. Patient was seen recently by Dr. Brown on 08/02. She states she was initially scheduled on Tuesday to have the perirectal abscess drained however there was a miscommunication and she later was told that they had no beds and wanted to schedule the surgery for tomorrow. She states she went to her oncology appointment this morning and was supposed to be scheduled for chemotherapy but they did not want to complete this until her known infection was taking care of. They reportedly sent her to the emergency department. Upon arrival to the ED, I contacted Dr. Brown who immediately told me patient should not have been instructed to go to ED and wants her at the outpatient surgery center for drainage. MD elicited complaint: other (rectal pain/abscess) Pertinent past history: other (rectal adenocarcinoma) Pain Consistency: constant Radiation: none Migration to: no migration Exacerbating factors: bowel movement Relieving factors: nothing Associated Symptoms: Reports diarrhea and hematochezia; Denies dysuria, fever(s), nausea and vomiting Related Data Home Medications Medication Instructions Recorded Confirmed CBD gummy 5 mg PO 1XD PRN Pain 05/09/24 08/07/24 acetaminophen 325 mg capsule 325 mg PO QID PRN Pain 05/09/24 08/07/24 ferrous sulfate 325 mg (65 mg 325 mg PO TID 05/09/24 08/07/24 iron) tablet iodoral 10 mg PO DAILY 05/09/24 08/07/24 multivitamin 1 tab PO DAILY 05/09/24 08/07/24 polyethylene glycol 3350 17 4 g PO DAILY PRN Constipation 05/09/24 08/07/24 gram/dose oral powder (Miralax) wellgenix sea essentials 1 oz PO DAILY 05/09/24 08/07/24 Previous Rx's Medication Instructions Recorded hydrocodone 7.5 mg-acetaminophen 1 tab PO Q6H PRN pain #20 tabs 05/22/24 325 mg tablet lorazepam 1 mg tablet 0.5 - 1 mg (0.5 - 1 x 1 mg) PO Q6H 05/28/24 PRN Severe Nausea #30 tabs ondansetron HCl 4 mg tablet 4 mg PO QID PRN Nausea/vomiting 05/28/24 #30 tabs prochlorperazine maleate 10 mg 10 mg PO Q4H PRN Mild Nausea #30 05/28/24 tablet (Compazine) tabs Allergies Allergy/AdvReac Type Severity Reaction Status Date / Time shellfish derived Allergy Mild nothing Verified 08/07/24 07:56 noticeable Review of Systems Const: Denies: fever(s) Card: Denies: chest pain Resp: Denies: dyspnea GI: Reports: diarrhea, rectal pain and hematochezia; Denies: abdominal pain, nausea or vomiting : Denies: flank pain or dysuria Skin/Breast: Denies: rash PFSH ED PFSH: Medical History Iron deficiency anemia Rectal cancer Surgical History Port-A-Cath in place History of colonoscopy (04/19/24) Family History Other Cancer Stroke Denies family history of Diabetes CAD (coronary artery disease) Chronic kidney disease (CKD) Lung disease Social History Smoking and tobacco/nicotine status: never used tobacco/nicotine Second hand smoke exposure: Yes Alcohol intake: never Substance/Drug Use: never Lives independently: Yes Marital status: Single Physical Exam Const: COMMON NORMALS: no acute distress, patient oriented x3, no limitations and alert GENERAL APPEARANCE: cooperative NUTRITIONAL APPEARANCE: thin ORIENTATION/CONSCIOUSNESS: Yes awake, Yes oriented to person, Yes oriented to place and Yes oriented to time Resp: COMMON NORMALS: normal respiratory effort and clear to auscultation bilaterally AUSCULTATION: clear to auscultation bilaterally Cardio: COMMON NORMALS: regular rhythm RATE: tachycardic RHYTHM: regular rhythm GI: COMMON NORMALS: Normal to inspection, nondistended, normoactive bowel sounds present and Soft to palpation PALPATION: Yes Soft to palpation OTHER: dark blood noted around rectum, diarrhea seepage visualized; patient wearing adult brief Neuro: COMMON NORMALS: patient oriented x3 SENSORIUM/ORIENTATION: Yes alert, Yes oriented to person, Yes oriented to place and Yes oriented to time Course Consultations: Consultation #1: Dr. Brown-wants patient to go to outpatient surgery for drainage Vital Signs: Vital signs: Vital Signs Temperature 98.3 F 08/07/24 10:25 Pulse Rate 121 H 08/07/24 10:25 Respiratory Rate 18 08/07/24 10:25 Blood Pressure 94/63 08/07/24 10:25 Pulse Oximetry 100 08/07/24 10:25 Oxygen Delivery Me thod Room Air 08/07/24 10:25 MDM - Abdominal Pain Medical Decision Making Dr. Brown was contacted who stated patient should not have been checked into the emergency department and they are want her at outpatient surgery for drainage. He did not want any labs or repeat imaging. Unfortunately patient has had a lot of miscommunication over the past several days. I apologized for this. She will be taken to outpatient surgery and we will let registration know and RN/ED supervisor sulfuric acid plant Minna know. Dr. Knight aware as well. Medical Records I reviewed the patient's medical records. No radiology studies performed this visit Discharge Plan Discharge Patient Disposition: Home Clinical Impression: Adenocarcinoma of rectum, Perirectal abscess Condition: Stable Discharge Orders: Discharge ED (Routine); Ordered 08/07/24 Ordered By: Charlotte Santacruz Coding Level of Care Code ED Roll Or Tape Edge Machine Operator for Chg Fwd Documented by User: Vin Knight DO 08/07/24 11:18 HPI - Abdominal Pain General: Chief Complaint: Skin/Abscess/Foreign Body Stated Complaint: rectal abcess - dr brown sent Time Seen by Provider: 08/07/24 10:17 Related Data Home Medications Medication Instructions Recorded Confirmed CBD gummy 5 mg PO 1XD PRN Pain 05/09/24 08/07/24 acetaminophen 325 mg capsule 325 mg PO QID PRN Pain 05/09/24 08/07/24 ferrous sulfate 325 mg (65 mg 325 mg PO TID 05/09/24 08/07/24 iron) tablet iodoral 10 mg PO DAILY 05/09/24 08/07/24 multivitamin 1 tab PO DAILY 05/09/24 08/07/24 polyethylene glycol 3350 17 4 g PO DAILY PRN Constipation 05/09/24 08/07/24 gram/dose oral powder (Miralax) wellgenix sea essentials 1 oz PO DAILY 05/09/24 08/07/24 Previous Rx's Medication Instructions Recorded hydrocodone 7.5 mg-acetaminophen 1 tab PO Q6H PRN pain #20 tabs 05/22/24 325 mg tablet lorazepam 1 mg tablet 0.5 - 1 mg (0.5 - 1 x 1 mg) PO Q6H 05/28/24 PRN Severe Nausea #30 tabs ondansetron HCl 4 mg tablet 4 mg PO QID PRN Nausea/vomiting 05/28/24 #30 tabs prochlorperazine maleate 10 mg 10 mg PO Q4H PRN Mild Nausea #30 05/28/24 tablet (Compazine) tabs Allergies Allergy/AdvReac Type Severity Reaction Status Date / Time shellfish derived Allergy Mild nothing Verified 08/07/24 07:56 noticeable [facility] ED PFSH: Medical History Iron deficiency anemia Rectal cancer Surgical History Port-A-Cath in place History of colonoscopy (04/19/24) Family History Other Cancer Stroke Denies family history of Diabetes CAD (coronary artery disease) Chronic kidney disease (CKD) Lung disease Social History Smoking and tobacco/nicotine status: never used tobacco/nicotine Second hand smoke exposure: Yes Alcohol intake: never Substance/Drug Use: never Lives independently: Yes Marital status: Single Course Vital Signs: Vital signs: Vital Signs Temperature 98.3 F 08/07/24 10:25 Pulse Rate 121 H 08/07/24 10:25 Respiratory Rate 18 08/07/24 10:25 Blood Pressure 94/63 08/07/24 10:25 Pulse Oximetry 100 08/07/24 10:25 Oxygen Delivery Me thod Room Air 08/07/24 10:25 MDM - Abdominal Pain Medical Decision Making Dr. Brown was contacted who stated patient should not have been checked into the emergency department and they are want her at outpatient surgery for drainage. He did not want any labs or repeat imaging. Unfortunately patient has had a lot of miscommunication over the past several days. I apologized for this. She will be taken to outpatient surgery and we will let registration know and RN/ED supervisor sulfur[employer] acid plant Minna [place]. Dr. Knight aware as well. Chart reviewed and patient discussed with midlevel. Agree with assessment and plan. Discharge Plan Discharge Patient Disposition: Home Clinical Impression: Adenocarcinoma of rectum, Perirectal abscess Condition: Stable Discharge Orders: Discharge ED (Routine); Ordered 08/07/24 Ordered By: Charlotte Santacruz Coding Level of Care Code ED Roll Or Tape Edge Machine Operator for Shaheen Merritt
--- NOTE | 2024-08-07 11:06 | PC.NURSE ---
PATIENT WAS SUPPOSED TO GO TO OUTPATIENT SURGERY. PATIENT TAKEN BY ANTONIA Locke RN AT OUTPATIENT SURGERY.
--- NOTE | 2024-08-07 11:21 | W.PM.OPSUD ---
Surgery/Procedure H&P Update DATE OF PROCEDURE: August 07, 2024 DATE H&P PERFORMED: 08/02/24 H&P UPDATE INFORMATION: I have reviewed H&P completed within last 30 days, I have examined patient prior to procedure and No changes to prior documentation PLANNED PROCEDURE: Operation Date: 08/07/24 16:00 Proposed Procedures p Exam Under Anesthesia(Not Applicable) - DO jorge Arizmendi Incision And Drainage Perianal Abscess(Not Applicable) - Raheel Brown DO
[2024-08-07 11:39] LABS: Basophils # 0.1 10^3/uL (0.0-0.1); Basophils % 0.6 %; Eosinophils % 0.2 %; Hematocrit 28.3 % (36-47); Lymphocytes # 1.8 10^3/uL (0.8-4.8); Lymphocytes % 13.9 %; Mean Corpuscular Hemoglobin 27.6 pg (27-33); Mean Corpuscular Volume 91.9 fl (85-98); Mean Platelet Volume 10.7 fL (7.4-10.4); Monocytes # 2.5 10^3/uL (0.2-0.9); Monocytes % 19.5 %; Neutrophils # 8.17 10^3/uL (1.8-7.7); Neutrophils % 64.3 %; Nucleated Red Blood Cells % 0 %; Platelet Count 354 10^3/cmm (157-399); Red Blood Count 3.08 10^6/uL (3.85-5.65); Red Cell Distribution Width 18.6 % (12.1-15.1); White Blood Count 12.69 10^3/uL (3.29-11.43)
--- NOTE | 2024-08-07 11:55 | P.ANESASSM_ITS ---
Pre-Anesthetic Assessment Height/Weight: Height 5 ft 6 in Weight 103 lb Temp Pulse Resp BP Pulse Ox O2 Del Method 99.8 F H 107 H 18 101/65 100 Room Air 08/07/24 11:23 08/07/24 11:23 08/07/24 11:23 08/07/24 11:23 08/07/24 11:23 08/07/24 11:23 Preop Diagnosis: Rectal abscess Operation Date: 08/07/24 16:00 Proposed Procedures p Exam Under Anesthesia(Not Applicable) - Raheel Brown DO s Incision And Drainage Perianal Abscess(Not Applicable) - Raheel Brown DO Was Beta Patti taken within 24 hours: N/A Was Clonidine taken within 24 hours: N/A Last intake: Intake Last Liquid Date 08/07/24 Last Liquid Time 08:50 Last Solid Date 08/06/24 Last Solid Time 23:55 Social No alcohol and No tobacco Exam alert, oriented x 3, clear to auscultation bilaterally and regular rate & rhythm Airway Submandibular: within normal limits Cervical ROM: within normal limits Mallampati: Class II Dentition: full Anesthetic Plan ASA status: 3 Anesthesia: General Other: No prior issues with anesthesia Patient currently has stage III rectal adenocarcinoma undergoing chemotherapy. Currently has a perirectal abscess needing drained Patient does admit to taking marijuana Gummies but does not smoke anything NPO since midnight Labs reviewed and acceptable for anesthesia at this time Plan for general anesthesia Medications/Allergies Home Medications Medication Instructions Recorded Confirmed Last Taken Type CBD gummy 5 mg PO 1XD PRN Pain 05/09/24 08/07/24 05/21/24 History acetaminophen 325 mg capsule 325 mg PO QID PRN Pain 05/09/24 08/07/24 Unknown History ferrous sulfate 325 mg (65 mg 325 mg PO TID 05/09/24 08/07/24 05/20/24 History iron) tablet iodoral 10 mg PO DAILY 05/09/24 08/07/24 05/21/24 History multivitamin 1 tab PO DAILY 05/09/24 08/07/24 Unknown History polyethylene glycol 3350 17 4 g PO DAILY PRN Constipation 05/09/24 08/07/24 Unknown History gram/dose oral powder (Miralax) wellgenix sea essentials 1 oz PO DAILY 05/09/24 08/07/24 05/21/24 History hydrocodone 7.5 mg-acetaminophen 1 tab PO Q6H PRN pain #20 tabs 05/22/24 08/07/24 Unknown Rx 325 mg tablet lorazepam 1 mg tablet 0.5 - 1 mg (0.5 - 1 x 1 mg) PO Q6H 05/28/24 08/07/24 Unknown Rx PRN Severe Nausea #30 tabs ondansetron HCl 4 mg tablet 4 mg PO QID PRN Nausea/vomiting 05/28/24 08/07/24 Unknown Rx #30 tabs prochlorperazine maleate 10 mg 10 mg PO Q4H PRN Mild Nausea #30 05/28/24 08/07/24 Unknown Rx tablet (Compazine) tabs Allergies Allergy/AdvReac Type Severity Reaction Status Date / Time shellfish derived Allergy Mild nothing Verified 08/07/24 07:56 noticeable PFSH Anesthesia Medical History Iron deficiency anemia Rectal cancer Surgical History Port-A-Cath in place History of colonoscopy (04/19/24) Family History Other Cancer Stroke Denies family history of Diabetes CAD (coronary artery disease) Chronic kidney disease (CKD) Lung disease Social History Smoking and tobacco/nicotine status: never used tobacco/nicotine Second hand smoke exposure: Yes Alcohol intake: never Substance/Drug Use: never Lives independently: Yes Marital status: Single Data Anesthesia 08/07/24 10:45 08/07/24 10:45 Microbiology 08/07/24 10:45 Blood Culture - Preliminary Blood SPECIMEN COLLECTED 08/07/24 10:51 Blood Culture - Preliminary Blood SPECIMEN COLLECTED Cardiac Studies: 2 No Data to Display
[2024-08-07 11:57] LABS: Alanine Aminotransferase 13 U/L (0-33); Albumin Level 3.1 g/dL (3.5-5.2); Alkaline Phosphatase 82 U/L (35-105); Anion Gap 17.1 (5-19); Aspartate Amino Transferase 18 U/L (0-32); Blood Urea Nitrogen 6 mg/dL (6-20); Calcium 8.2 mg/dL (8.5-10.5); Carbon Dioxide 23 mmol/L (22-29); Chloride 96 mmol/L (98-107); Globulin 3.6 g/dL (1.3-4.6); Glomerular Filtration Rate 115.9 mL/min (90-130); Glucose 111 mg/dL (65-115); Osmolality Calculated 272 mOsm/kg (285-295); Potassium 4.1 mmol/L (3.5-5.1); Sodium 132 mmol/L (136-145); Total Bilirubin 0.2 mg/dL (0.15-1.2); Total Protein 6.7 g/dL (6.6-8.7)
[2024-08-07 11:58] LABS: Lactic Sepsis W/Reflex 1.5 mmol/L (0.5-2.2)
[2024-08-07 12:00] LABS: HCG, Serum Qual Negative (Negative)
[2024-08-07] MEDS: scopolamine 1.5 Patch 1 PATCH TRANSDERMA (12:12)
[2024-08-07 12:14] LABS: Slide Review Slide Review Perform
[2024-08-07] MEDS: piperacillin-tazobactam 3.375 GM in sodium chloride 0.9% (plus) 50 ML IV ×2 (12:17→20:23)
[2024-08-07] MEDS: lidocaine-epi 2% PF 1:200,000 20 mL SDV XX (12:50)
--- NOTE | 2024-08-07 13:03 | P.OP_ITS ---
Operative Report Date of procedure: August 07, 2024 Pre-op diagnosis: Perirectal abscess Rectal cancer Post-op diagnosis: same Procedure done: Examination under anesthesia Incision and drainage of perirectal abscess Implants: Half-inch iodoform packing gauze Specimens removed/disposition: Cultures Surgeon: Raheel Brown DO Anesthesia: General and Local Estimated blood loss (mL): 5 Complications: None apparent Findings: Large fungating and blood oozing rectal mass, mostly on the left side Brief History: This is a very pleasant 34-year-old female who has known rectal cancer. She was found on outpatient CT to have a perirectal abscess. She presented today as an outpatient for examination under anesthesia and incision and drainage of perirectal abscess. The risks and benefits were explained and documented. Procedure: Patient was wheeled operative room placed on the OR table in the supine position. General endotracheal intubation was achieved by the part of anesthesia. Patient was then placed into the lithotomy position. Her anus was inspected prepped and draped in usual sterile fashion. A timeout was performed. All present were in agreement. I began with the examination under anesthesia. Ultimately lubed anal retractor I examined the rectum. There was a large fungating rectal mass on the left side that was slowly oozing blood. I was unable to see any rectal fistula through/past the mass. No other pathology identified. Next, I turned my attention to the perirectal abscess. Abscess could not be palpated externally or via rectal exam. Based on the CT, the abscess is left of the rectum. 2% lidocaine with epinephrine was used to anesthetize the left gluteus distal to the anal sphincters. A 15 blade scalpel was used to make a 1.5 cm incision. Hemostats were then used to probe deeply through the gluteus along the rectum with 1 finger inside the rectum palpating for distance. I then entered the abscess cavity and copious amounts of green purulent and foul- smelling liquid was expelled. I used hemostats to break up loculations. Cultures were taken. The abscess cavity was then irrigated with normal saline. Abscess cavity was packed with half-inch iodoform packing gauze. Sterile dressing was applied. Patient tolerated procedure well.
--- NOTE | 2024-08-07 13:19 | SUR.PHASEI ---
Patient comes into PACU awake and talking but drowsy. Patient on room air with sats at 100%. patient packing/dressing dry and intact. Patient states no pain at this time.
--- NOTE | 2024-08-07 13:42 | ANE.PACU2 ---
Inpatient post-anesthesia follow up: Airway intact: Yes Vital signs: Temperature 97.8 F Pulse Rate 75 Respiratory Rate 18 Blood Pressure 85/50 Pulse Oximetry 98 Oxygen Delivery Me thod Room Air Oxygen Flow Rate Fraction of Inspir ed Oxygen Hydration adequate: Yes Nausea and vomiting: No Pain level: 1 Mental status: Baseline
--- NOTE | 2024-08-07 14:25 | SUR.EXTENDED ---
PAtient waiting for room on med surg floor to be available. Patient is comfortable. Pt mom at bedside in room with her. Patient care and report given to Shannon APODACA.
--- NOTE | 2024-08-07 14:50 | SUR.PHASEI ---
Received patient report from PAULIE Palm. Waiting for room to be assigned to patient after OR procedure. Patient is resting, VS wnl, no issues at this time.
[2024-08-07 21:03] LABS: Bilirubin Urine Negative (Negative); Blood Urine 2+ (Negative); Glucose Urine UA Negative (Normal); Ketones Urine Negative (Negative); Leukocyte Esterase Urine Negative (Negative); Nitrate Urine Negative (Negative); Protein Urine Trace (Negative); Specific Gravity, Urine 1.019 (1.005-1.030); Urine Appearance Cloudy (CLEAR); Urine Color Yellow (Yellow); pH Urine 5.5 (5-7)
[2024-08-07 21:05] LABS: Add Urine Microscopic? YES; Bacteria Urine None Seen /hpf; Hyaline Casts Urine 2.87 /lpf; WBC Urine 0-5 /hpf (0-5)
[2024-08-08] VITALS (7 sets, daily range): BP systolic 80–87; BP diastolic 42–53; PULSE 60–77; RESP 14–18; TEMP 36.1–36.6; O2SAT 91–100
[2024-08-08] MEDS: sodium chloride 0.9% 1,000 ML 100 ML IV ×2 (00:06→09:03)
[2024-08-08] MEDS: piperacillin-tazobactam 3.375 GM in sodium chloride 0.9% (plus) 50 ML IV ×2 (03:39→11:35)
[2024-08-08 05:32] LABS: Basophils # 0.1 10^3/uL (0.0-0.1); Basophils % 0.7 %; Eosinophils % 0.1 %; Lymphocytes # 1.3 10^3/uL (0.8-4.8); Lymphocytes % 9.3 %; Mean Corpuscular HGB Conc 30.6 g/dL (30-55); Mean Corpuscular Volume 91.4 fl (85-98); Mean Platelet Volume 10.8 fL (7.4-10.4); Monocytes % 7.3 %; Neutrophils # 10.92 10^3/uL (1.8-7.7); Neutrophils % 80.9 %; Nucleated Red Blood Cells % 0 %; Platelet Count 407 10^3/cmm (157-399); Red Blood Count 3.39 10^6/uL (3.85-5.65); Red Cell Distribution Width 18.2 % (12.1-15.1); White Blood Count 13.51 10^3/uL (3.29-11.43)
[2024-08-08] MEDS: heparin 5,000 unit/mL INJ 1 mL 5000 UNIT SUBCUT (05:51)
[2024-08-08 05:55] LABS: Anion Gap 16.3 (5-19); Blood Urea Nitrogen 8 mg/dL (6-20); Calcium 8.4 mg/dL (8.5-10.5); Carbon Dioxide 24 mmol/L (22-29); Chloride 107 mmol/L (98-107); Creatinine Clr Calc Pharmacy 118.2112; Glomerular Filtration Rate 115.9 mL/min (90-130); Glucose 114 mg/dL (65-115); Magnesium 2.4 mg/dL (1.7-2.3); Osmolality Calculated 293 mOsm/kg (285-295); Potassium 5.3 mmol/L (3.5-5.1); Sodium 142 mmol/L (136-145)
[2024-08-08] MEDS: docusate sodium 100 mg Capsule PO (08:51)
--- NOTE | 2024-08-08 10:35 | PC.CHAP ---
Pastoral Care Encounter/Spiritual Assessment Type of Contact [] Declined switchman supervisor visit [] Patient/Family/Request visit [] Outpatient visit [] Follow-up visit [] Physician referral [] Code/Alert [x] Routine visit [] Staff referral [] Actively dying [] Patient sleeping [] Family support [] [] Out of room [] Palliative care [] [] Receiving care in room [] Pre-surgical visit [] Trauma [] Long length of stay [] ICU visit [] Other: Relational/Emotional Strength [x] Patient feels connected with others/family/visitors/staff [] Distress [] Loneliness/isolation [] Abandonment Spirituality of Patient [x] Person of Jessica [] Attends Rastafari of their Jessica [x] Believes in Prayer [] Reads Bible or Lutheran materials [] There are Spiritual issues to be addressed Control Valve Technician Interventions [x] Prayer [x] Active listening [x] Non-anxious presence [x] Spiritual/emotional support [] Crisis/trauma care [] Spiritual counseling [] Bereavement support [] Provided bereavement packet [] Provided Bible/devotional materials [] Provided toy/stuffed animal, coloring book to patient or family member [] Provided Communion [] Anointing/[place] [] Salvation [x] Completed spiritual assessment [] Other: Impact on Illness or Injury [] Angry [] Fearful [] Anxious [] Often cries [] Exhaustion [] Unable to work [] Unable to attend quaker [] Unable to walk/stand [] Unable to read [] Unable to drive [] Unable to eat/drink [] Unable to sleep [] Unable to be with family [] Patient intubated [] Other: Summary Time spent with patient 5 min
[2024-08-08] MEDS: HYDROmorphone 1 mg/mL INJ 1 mL IVP (10:45)
--- NOTE | 2024-08-08 14:21 | PM.DCS ---
Discharge Providers Date of Admission: 08/07/24 13:10 Date of Discharge: August 08, 2024 Attending Provider at Admission: Raheel Cortez DO Attending Provider at Discharge: Raheel Cortez DO Primary Care Provider: Ritika Bejarano MD Reason for Visit Reason for Visit: rectal abcess - dr cortez sent Hospital Course Hospital Course This is a very pleasant 34-year-old female with rectal cancer who presented to my office after an outpatient PET/CT with a perirectal abscess. She came into the hospital as an outpatient for incision and drainage of a perirectal abscess and examination under anesthesia. Examination revealed fungating rectal mass that was oozing blood. No obvious fistula could be seen through the mass or in the rectum. Approximately 9 cm deep to the gluteal skin on the left side was a large perirectal abscess that was drained and packed. She was discharged home the next day with teaching on wound care and antibiotics. Physical Exam Narrative: General : Patient is well developed , no acute distress, oriented x3 Head : Normal cephalic, a-traumatic. Ears : Pinnae and external canal are normal. Hearing is normal. Eyes : PERRLA, Sclera and injection are normal. No conjunctival discharge. Nose : Mucous membranes are without erythema. Throat : buccal mucosa is normal, gums are without significant recession or hypertrophy. Lungs : Equal chest rise bilaterally, no use of accessory muscles, trachea is midline. Cor : Rate and rhythm are normal. Abdomen : Soft, ND, NT, no g/r/m Extremities : No edema, no cyanosis or clubbing, dorsalis pedis pulses are present bilaterally, non-tender to palpation of calves. Upper extremities are normal bilaterally. Back : non-tender to palpation, no CVA tenderness. Neuro : CN II - XII intact, Upper and lower extremities have equal and full strength Discharge Data Studies Completed and Pending Pending at discharge Category Date Time Status Anaerobic Culture Routine Lab 08/07/24 12:50 Received Basic Metabolic Panel AM LABS Lab 08/09/24 04:00 Uncollected Basic Metabolic Panel AM LABS Lab 08/10/24 04:00 Uncollected Blood Culture Stat Lab 08/07/24 10:45 Results Complete Blood Count w/Auto AM LABS Lab 08/09/24 04:00 Ordered Complete Blood Count w/Auto AM LABS Lab 08/10/24 04:00 Ordered Magnesium AM LABS Lab 08/09/24 04:00 Uncollected Magnesium AM LABS Lab 08/10/24 04:00 Uncollected Wound Culture and Gram Stain Routine Lab 08/07/24 12:50 Results Laboratory Results WBC 13.51 10^3/uL (3.29-11.43) H 08/08/24 04:45 RBC 3.39 10^6/uL (3.85-5.65) L 08/08/24 04:45 Hgb 9.50 g/dL (11.27-16.99) L 08/08/24 04:45 Hct 31.0 % (36-47) L 08/08/24 04:45 MCV 91.4 fl (85-98) 08/08/24 04:45 MCH 28.0 pg (27-33) 08/08/24 04:45 MCHC 30.6 g/dL (30-55) 08/08/24 04:45 RDW 18.2 % (12.1-15.1) H 08/08/24 04:45 Plt Count 407 10^3/cmm (157-399) H 08/08/24 04:45 MPV 10.8 fL (7.4-10.4) H 08/08/24 04:45 Neut % (Auto) 80.9 % 08/08/24 04:45 Lymph % (Auto) 9.3 % 08/08/24 04:45 [place] % (Auto) 7.3 % 08/08/24 04:45 Eos % (Auto) 0.1 % 08/08/24 04:45 Baso % (Auto) 0.7 % 08/08/24 04:45 Neut # (Auto) 10.92 10^3/uL (1.8-7.7) H 08/08/24 04:45 Lymph # (Auto) 1.3 10^3/uL (0.8-4.8) 08/08/24 04:45 [place] # (Auto) 1.0 10^3/uL (0.2-0.9) H 08/08/24 04:45 Eos # (Auto) 0.0 10^3/uL (0.0-0.8) 08/08/24 04:45 Baso # (Auto) 0.1 10^3/uL (0.0-0.1) 08/08/24 04:45 Nucleated RBC % (auto) 0 % 08/08/24 04:45 Nucleated RBCs # 0.0 /100WBC 08/08/24 04:45 Sodium 142 mmol/L (136-145) 08/08/24 04:45 Potassium 5.3 mmol/L (3.5-5.1) H 08/08/24 04:45 Chloride 107 mmol/L (98-107) 08/08/24 04:45 Carbon Dioxide 24 mmol/L (22-29) 08/08/24 04:45 Anion Gap 16.3 (5-19) 08/08/24 04:45 BUN 8 mg/dL (6-20) 08/08/24 04:45 Creatinine 0.6 mg/dL (0.5-0.9) 08/08/24 04:45 GFR Calculation 115.9 mL/min (90-130) 08/08/24 04:45 Glucose 114 mg/dL (65-115) 08/08/24 04:45 Calculated Osmolality 293 mOsm/kg (285-295) 08/08/24 04:45 Lactic Acid 1.5 mmol/L (0.5-2.2) 08/07/24 10:45 Calcium 8.4 mg/dL (8.5-10.5) L 08/08/24 04:45 Magnesium 2.4 mg/dL (1.7-2.3) H 08/08/24 04:45 Total Bilirubin 0.2 mg/dL (0.15-1.2) 08/07/24 10:45 AST 18 U/L (0-32) 08/07/24 10:45 ALT 13 U/L (0-33) 08/07/24 10:45 Alkaline Phosphatase 82 U/L (35-105) 08/07/24 10:45 Total Protein 6.7 g/dL (6.6-8.7) 08/07/24 10:45 Albumin 3.1 g/dL (3.5-5.2) L 08/07/24 10:45 Globulin 3.6 g/dL (1.3-4.6) 08/07/24 10:45 HCG, Qual Negative (Negative) 08/07/24 10:45 Urine Color Yellow (Yellow) 08/07/24 20:40 Urine Appearance Cloudy (CLEAR) A 10/15/24 20:40 Urine pH 5.5 (5-7) 08/07/24 20:40 Ur Specific [place] 1.019 (1.005-1.030) 08/07/24 20:40 Urine Protein Trace (Negative) A 08/07/24 20:40 Urine Glucose (UA) Negative (Normal) 08/07/24 20:40 Urine Ketones Negative (Negative) 08/07/24 20:40 Urine Blood 2+ (Negative) A 08/07/24 20:40 Urine Nitrate Negative (Negative) 08/07/24 20:40 Urine Bilirubin Negative (Negative) 08/07/24 20:40 Urine Urobilinogen 1.0 mg/dL (Negative) 08/07/24 20:40 Ur Leukocyte Esterase Negative (Negative) 08/07/24 20:40 Urine RBC 6-10 /hpf (0-2) 08/07/24 20:40 Urine WBC 0-5 /hpf (0-5) 08/07/24 20:40 Ur Squamous Epith Cells 11-20 /hpf (0-5) 08/07/24 20:40 Amorphous Sediment Not Reportable 08/07/24 20:40 Urine Bacteria None seen /hpf (NONE) 08/07/24 20:40 Hyaline Casts 2.87 /lpf 08/07/24 20:40 Procedures Performed Examination under anesthesia and incision and drainage of perirectal abscess g Vitals Last Vital Signs Temp 97.8 F 08/08/24 11:36 Pulse 75 08/08/24 11:36 Resp 18 08/08/24 11:36 BP 85/50 08/08/24 11:36 Pulse Ox 98 08/08/24 11:36 O2 Del Method Room Air 08/08/24 11:36 Discharge Plan Discharge Patient Disposition: Home Condition: Stable Prescriptions: New oxycodone-acetaminophen [Percocet] 10-325 mg tablet 1 tab PO Q6H PRN (Reason: pain) Qty: 28 0RF Rx Instructions: May take half of a tab at a time docusate sodium [Colace] 100 mg capsule 100 mg PO BID Qty: 14 0RF polyethylene glycol 3350 [Miralax] 17 gram/dose powder 17 g PO DAILY 7 Days Qty: 119 0RF amoxicillin-pot clavulanate 875-125 mg tablet 1 tab PO BID Days Qty: 20 0RF Continued ferrous sulfate 325 mg (65 mg iron) tablet 325 mg PO TID multivitamin Tablet 1 tab PO DAILY CBD gummy gum 5 mg PO 1XD PRN (Reason: Pain) ondansetron HCl 4 mg tablet 4 mg PO QID PRN (Reason: Nausea/vomiting) Qty: 30 3RF Discharge Orders: Discharge Order (Routine); Ordered 08/08/24 Ordered By: Raheel Cortez Referrals: Ritika Bejarano MD [Primary Care Provider] - Raheel Cortez DO [Physician] - 08/20/24 9:35 am Discharge Diet: Advance as tolerated Discharge Activity: Resume usual activity Activity Restrictions/Additional Instructions: Change packing daily with half-inch plain packing gauze covered by 4 x 4 gauze. Do not soak wound underwater until healed. Shower regularly Discharge Attestations Time Spent in Discharge Care*: less than 30 min Quality Metrics Clinical Quality Measures [ No reported AMI, CVA or VTE this stay] Coding Level of Care Code Acute Code for Chg René
== END 2024-08-08 16:36 | disposition home or self-care (01) ==
LOC: ER 10:56 → OR 10:57 → MEDSURG 08-08 07:44
PROVIDERS: Admitting Provider Surgery; Emergency Provider Physician Assistant; PCP Family Medicine; Visit Provider Surgery
PROC: (CPT 46050; principal; 2024-08-07 15:50)
PROC: (CPT 46050; 2024-08-07 15:50)
DX: K61.1 Rectal abscess (principal); C20 Malignant neoplasm of rectum
CPT/HCPCS: 46050; 36415; 36592; 80048; 80053; 81001; 83605; 83735; 84703; 85025; 87040; 87070; 87075; 87077; 87205; 96372; 99285; G0378; J0131; J1100; J1170; J1644; J2405; J2543; J3010; J7030; P9045

== ENCOUNTER 2024-08-15 15:01 | Oncology outpatient (recurring) (ONCR) | payer BC, MEDICAID, SELFPAY ==
[2024-07-24 08:17] LABS: Basophils % 0.7 %; Eosinophils # 0.2 10^3/uL (0.0-0.8); Eosinophils % 3.1 %; Hematocrit 35.8 % (36-47); Lymphocytes # 2.1 10^3/uL (0.8-4.8); Lymphocytes % 36.2 %; Mean Corpuscular HGB Conc 30.4 g/dL (30-55); Mean Corpuscular Hemoglobin 27.3 pg (27-33); Mean Corpuscular Volume 89.7 fl (85-98); Mean Platelet Volume 9.9 fL (7.4-10.4); Monocytes # 1.3 10^3/uL (0.2-0.9); Neutrophils # 2.21 10^3/uL (1.8-7.7); Neutrophils % 37.8 %; Nucleated Red Blood Cells % 0 %; Platelet Count 262 10^3/cmm (157-399); Red Blood Count 3.99 10^6/uL (3.85-5.65); Red Cell Distribution Width 21.8 % (12.1-15.1); White Blood Count 5.83 10^3/uL (3.29-11.43)
[2024-07-24 08:52] LABS: Alanine Aminotransferase 40 U/L (0-33); Albumin Level 3.9 g/dL (3.5-5.2); Alkaline Phosphatase 62 U/L (35-105); Anion Gap 15.4 (5-19); Aspartate Amino Transferase 44 U/L (0-32); Carbon Dioxide 26 mmol/L (22-29); Chloride 103 mmol/L (98-107); Globulin 3.2 g/dL (1.3-4.6); Glucose 107 mg/dL (65-115); Potassium 4.4 mmol/L (3.5-5.1); Sodium 140 mmol/L (136-145); Total Protein 7.1 g/dL (6.6-8.7)
[2024-07-24 09:18] LABS: Blood Urea Nitrogen 7 mg/dL (6-20); Calcium 9.1 mg/dL (8.5-10.5); Creatinine Clr Calc Pharmacy 101.5686; Glomerular Filtration Rate 115.9 mL/min (90-130); Osmolality Calculated 288 mOsm/kg (285-295); Total Bilirubin 0.3 mg/dL (0.15-1.2)
[2024-07-24] MEDS: palonosetron 0.25 mg/5 mL SDV IVP (09:56)
[2024-07-24] MEDS: dextrose 5% 250 ML 75 ML IV (09:56)
[2024-07-24] MEDS: dexamethasone 4 mg/mL INJ 5 mL 12 MG IVP (10:03)
[2024-07-24] MEDS: leucovorin 610 MG in dextrose 5% 250 ML 62.5 MG IV (10:45)
[2024-07-24] MEDS: oxaliplatin 100 MG, oxaliplatin 30 MG in dextrose 5% 250 ML 138 MG IV (10:45)
[2024-07-24] MEDS: fluorouraciL 3,650 MG, elastomeric pump 1 PUMP in sodium chloride 0.9% (100 ml) 19 ML IV (13:05)
[2024-07-24 13:15] VITALS: BP 110/67; PULSE 63; RESP 17; TEMP 36.4; O2SAT 93
--- NOTE | 2024-07-31 08:00 | CTR_ITS ---
PROCEDURE INFORMATION: Exam: CT Chest With Contrast; Diagnostic Exam date and time: 07/31/2024 8:13 AM Age: 34 years old Clinical indication: Condition or disease; Prior surgery; Surgery date: 6+ months; Surgery type: Port; Patient HX: Colorectal cancer f/u, rectal bleeding; Additional info: Cancer follow up TECHNIQUE: Imaging protocol: Diagnostic computed tomography of the chest with contrast. Radiation optimization: All CT scans at this facility use at least one of these dose optimization techniques: automated exposure control; mA and/or kV adjustment per patient size (includes targeted exams where dose is matched to clinical indication); or iterative reconstruction. Contrast material: OMNI 350; Contrast volume: 80 ml; Contrast route: INTRAVENOUS (IV); COMPARISON: PT PET skull to thigh INIT [id number] 05/22/2024 8:54 AM RADIATION DOSE METRICS: Total DLP (mGy-cm): 435.52 FINDINGS: Tubes, catheters and devices: Left-sided chest port catheter terminates within the SVC. Thyroid: Partially imaged thyroid is normal in appearance. Lungs: No suspicious pulmonary nodules or masses. Pleural spaces: No pleural effusion. No pneumothorax. Heart: Heart is normal in size. No pericardial effusion. Lymph nodes: No distinct pathologically enlarged lymphadenopathy. Vasculature: Thoracic aorta is within normal limits. Bones/joints: No acute osseous findings. Soft tissues: Visualized superficial soft tissues are within normal limits. PROCEDURE INFORMATION: Exam: CT Abdomen And Pelvis With Contrast Exam date and time: 07/31/2024 8:13 AM Age: 34 years old Clinical indication: Condition or disease; Prior surgery; Surgery date: 6+ months; Surgery type: Port; Patient HX: Colorectal cancer f/u, rectal bleeding; Additional info: Cancer follow up TECHNIQUE: Imaging protocol: Computed tomography of the abdomen and pelvis with contrast. Radiation optimization: All CT scans at this facility use at least one of these dose optimization techniques: automated exposure control; mA and/or kV adjustment per patient size (includes targeted exams where dose is matched to clinical indication); or iterative reconstruction. Contrast material: OMNI 350; Contrast volume: 80 ml; Contrast route: INTRAVENOUS (IV); COMPARISON: PT PET skull to thigh INIT [id number] 05/22/2024 8:54 AM RADIATION DOSE METRICS: Total DLP (mGy-cm): 435.52 FINDINGS: Liver: Stable atypical appearance of the liver anatomy. The right liver measures up to 22.0 cm in craniocaudal dimension. The liver demonstrates a focal hyperenhancing lesion, measuring up to 2.3 cm, located along the right hepatic dome, seen only on early/arterial phase images, without a distinct correlate on delayed/venous phase images. This is unchanged in appearance to CT chest/abdomen/pelvis 04/23/2024. No elevated radiotracer uptake was seen at this location on PET-CT 05/22/2024. These imaging characteristics are indicative of a benign flash filling hemangioma. No suspicious hepatic masses. Gallbladder and biliary ducts: The gallbladder is unremarkable. No biliary ductal dilatation. Pancreas: The pancreas is unremarkable. Spleen: Stable atypical appearance of the spleen. The spleen measures up to 16.8 cm in craniocaudal dimension. Adrenal glands: The adrenal glands are unremarkable. Kidneys and ureters: Kidneys are normal. No hydronephrosis or nephrolithiasis. Stomach and bowel: Redemonstrated focal thickening about the rectum, likely representing known primary. There is a new lesion (compared to 05/22/2024 and 04/23/2024), located in the left perirectal fat (axial series 5 image 77; coronal series 10, image 14; sagittal series 11, image 29), measuring roughly 4.6 cm, demonstrating a peripherally enhancing rind with internal hypoattenuation. There is moderate surrounding perirectal stranding and edema, with small amount of associated free fluid, not present on prior studies. This lesion is favored to represent a perirectal abscess. Nonobstructive bowel-gas pattern. Appendix: No evidence of acute appendicitis. Intraperitoneal space: No significant free fluid in the abdomen or pelvis. Trace nonspecific free fluid in the pelvis. Vasculature: Abdominal aorta and its major branches are within normal limits. Lymph nodes: Multiple prominent lymph nodes and masses within the central and para-aortic abdomen and extending into the pelvis, overall decreased in size and conspicuity compared to 04/23/2024. Urinary bladder: Urinary bladder is within normal limits. Reproductive: Visualized reproductive structures are within normal limits. Bones/joints: No acute osseous findings. Soft tissues: Visualized superficial soft tissues are within normal limits. Multiple soft tissue masses and implants in the [id number]-right pelvis, overall slightly decreased in size compared to 04/23/2024. The largest distinct mass, located in the left hemipelvis, now measures roughly 7.2 x 4.8 x 3.6 cm (axial series 5, image 66). This mass previously measured roughly 7.5 x 5.7 x 4.5 cm on 04/23/2024. CT/CT chest abdpel w/*[id number] IMPRESSION: No evidence of metastatic disease in the chest. IMPRESSION: 1. Findings favored to represent a loculated perirectal abscess measuring up to 4.6 cm located in the left perirectal fat, with moderate surrounding stranding and edema. Recommend Surgical evaluation for consideration of drainage. 2. Findings in the abdomen/pelvis are consistent with overall mild positive response to treatment compared to 05/22/2024 and 04/23/2024. Mild decrease in size of multiple soft tissue masses, implants, and nodes located in the [id number]-right pelvis and in the central abdomen. Redemonstrated focal thickening about the rectum, likely representing known primary.
[2024-07-31] MEDS: iohexol 350 mg/mL 500 mL Btl (per mL) IV (08:20)
[2024-07-31] MEDS: iohexol 350 mg/mL 500 mL Btl (per mL) PO (08:21)
[2024-08-07 07:56] LABS: Reticulocyte % 0.9 % (0.5-2.0)
[2024-08-07 07:59] LABS: Hematocrit 26.6 % (36-47); Mean Corpuscular HGB Conc 31.6 g/dL (30-55); Mean Corpuscular Hemoglobin 28.1 pg (27-33); Mean Platelet Volume 10.4 fL (7.4-10.4); Platelet Count 355 10^3/cmm (157-399); Red Blood Count 2.99 10^6/uL (3.85-5.65); Red Cell Distribution Width 18.6 % (12.1-15.1); White Blood Count 12.22 10^3/uL (3.29-11.43)
[2024-08-07 08:29] LABS: Slide Review Slide Review Perform
[2024-08-07 08:32] LABS: Absolute Neutrophil 9.2 10^3/cmm (1.4-6.5); Absolute Segmented Neutrophil 6.1 10/cmm (1.6-7.1); Band Neutrophils Absolute 3.1 10^3/cmm (0.0-1.2); Lymphocytes 16 %; Monocytes Absolute 1.1 10^3/cmm (0.1-0.6); Platelet Estimate Normal (Normal); Poikilocytosis 1+; Segmented Neutrophils 50 %; Total Cells Counted 100 (0-100)
[2024-08-07 08:33] LABS: Eosinophils 0 %
[2024-08-07 08:43] LABS: Alanine Aminotransferase 14 U/L (0-33); Albumin Level 3.3 g/dL (3.5-5.2); Alkaline Phosphatase 69 U/L (35-105); Anion Gap 15.9 (5-19); Aspartate Amino Transferase 17 U/L (0-32); Blood Urea Nitrogen 7 mg/dL (6-20); Calcium 8.4 mg/dL (8.5-10.5); Carbon Dioxide 24 mmol/L (22-29); Chloride 97 mmol/L (98-107); Creatinine Clr Calc Pharmacy 85.0971; Globulin 3.8 g/dL (1.3-4.6); Glucose 114 mg/dL (65-115); Iron 9 ug/dL (37-145); Lactate Dehydrogenase 197 U/L (135-214); Magnesium 2.1 mg/dL (1.7-2.3); Osmolality Calculated 275 mOsm/kg (285-295); Percent Saturation 6.7 % (20-50); Potassium 3.9 mmol/L (3.5-5.1); Sodium 133 mmol/L (136-145); Total Bilirubin 0.2 mg/dL (0.15-1.2); Total Iron Binding Capacity 133 mcg/dl; Total Protein 7.1 g/dL (6.6-8.7); Unsaturated Iron Binding 124 ug/dL (112-347)
[2024-08-07 08:57] LABS: Ferritin 1390 ng/mL (15-150)
[2024-08-07 08:59] LABS: Folate Level > 20.0 ng/mL (4.8-37.3)
[2024-08-07 09:08] LABS: Carcinoembryonic Antigen 76.4 ng/mL (0.0-4.7)
[2024-08-07 09:13] LABS: Vitamin B12 > 2000 pg/mL (232-1245)
[2024-08-07] MEDS: iron sucrose 200 MG in sodium chloride 0.9% (100 ml) 100 ML 220 MG IV (09:25)
[2024-08-07 10:05] VITALS: BP 89/48; PULSE 103; TEMP 37.6
[2024-08-09 14:44] VITALS: BP 100/65; PULSE 111; RESP 18; TEMP 36.9; O2SAT 100
[2024-08-09] MEDS: alteplase 1 mg/mL SDV 2 mL 2 MG INTRACATH (15:02)
[2024-08-09] MEDS: iron sucrose 200 MG in sodium chloride 0.9% (100 ml) 100 ML 220 MG IV (15:34)
[2024-08-13 14:45] LABS: Soluble Transferrin Receptor 1.81 mg/L (0.76-1.76)
[2024-08-13] MEDS: iron sucrose 200 MG in sodium chloride 0.9% (100 ml) 100 ML 220 MG IV (15:54)
[2024-08-13 16:24] VITALS: BP 91/55; PULSE 111; RESP 16; TEMP 36.8; O2SAT 99
--- NOTE | 2024-08-14 08:23 | N.ONRAD NP_ITS ---
Radiation Oncology New Patient Visit Patient: Aurora Corrales MR#: [id number] : 1990 Age: 34 Sex: Female Dictated by: Dr. Jaime Mccauley Date of Service: 08/13/2024 Referring Physician(s) : Dr. 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 She underwent colonoscopy and biopsy on April 19, 2024 she has been on FOLFOX based chemotherapy. She had a left perirectal abscess I&D on August 07, 2024. She is seen here to address preoperative radiation with infusional 5-FU. Radiotherapy to date: Summary > No prior radiation therapy. Chief Complaint / History of Present Illness: Ms. Valerie Corrales is a 34-year-old single woman who had 2 years history of rectal bleeding initial evaluation in 2020 was apparently unremarkable on digital rectal exam. She underwent colonoscopy on April 19, 2020 for which revealed a malignant distal rectal mass biopsy revealed moderately differentiated adenocarcinoma microsatellite stable CT scan of the chest abdomen pelvis on April [address] scan on May 22, 2024 revealed bulky left pelvic and inferior left para aortic adenopathy smaller right iliac obturator adenopathy primary lesion in the distal rectum extending to the anus no metastatic disease in the upper abdomen liver lung or mediastinum on my review. She had port placement following this she has had M FOLFOX 6 chemotherapy beginning in May 2024 She developed significant left buttock pain on sitting CT scan 07/31/2024 revealed a new perirectal abscess.in addition there was mild reduction in size of her adenopathy. She underwent outpatient incision and drainage on August 07, 2024. She is now undergoing packing of this abscess with improved pain and modest amount of residual blood in discharge from the abscess cavity. She lives independently with her mother living nearby her base weight prior to her illness was 130 pounds and is now at 101 pounds. She has an appetite but has difficult time eating much at 1 time she has had no abdominal pain nausea vomiting fevers chills at this time she has small stools with some blood she has had fewer blood clots since beginning chemotherapy. Her rectal pain is decreased from 7 to 4-5 out of 10 scale following I&D. CEA at diagnosis was 351.8. Follow-up CEA approximately on August 07, 2024 had decreased to 76.4. Current Medications: acetaminophen 325 mg PO QID PRN[CBD gummy 5 mg PO 1XD PRN] ferrous sulfate 325 mg PO TIDhydrocodone-acetaminophen 7.5-325 mg 1 tab PO Q6H PRN[iodoral 10 mg PO DAILY] lorazepam 0.5 - 1 mg (0.5 - 1 x 1 mg) PO Q6H PRNmultivitamin 1 tab PO DAILYondansetron HCl 4 mg PO QID PRNpolyethylene glycol 3350 (Miralax) 4 grams PO DAILY PRNprochlorperazine maleate (Compazine) 10 mg PO Q4H PRN[wellgenix sea essentials 1 oz PO DAILY] Allergies: shellfish derived Allergy (Mild, Verified 08/07/24 07:56) nothing noticeable Medical History: No history of collagen vascular disease. No previous radiation therapy. Iron deficiency anemiaRectal cancer Surgical History: Port-A-Cath in placeHistory of colonoscopy (04/19/24) Family History: Cancer Stroke Denies family history of Diabetes CAD (coronary artery disease) Chronic kidney disease (CKD) Lung disease Social History: Single never . 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 She is with her mother and has significant family support. Family does live nearby. Smoking and tobacco/nicotine status: never used tobacco/nicotine Second hand smoke exposure: Yes Alcohol intake: never Substance/Drug Use: never Lives independently: Yes Marital status: Single Current Complaints / Review of Systems: . Vital Signs: Performed on 08/13/2024 2:19 PM BMI - 16.431 kg/m2 (low), Height - 66 in, Weight - 101.8 lbs, Temperature - 98 f, Pulse - 139 /min (high), Respiration - 16 /min, O2 Sat - 96 %, Pain - 0, Fatigue - 0 and BP - 89/ 62 mm(hg)(low). Physical Exam: Thin emaciated pleasant pale woman in no acute distress. She had port placed in her left infraclavicular space. She had no supraclavicular adenopathy. She had no pedal edema. Rectal and NOE anal region was not examined at her request. Performance Status: ECOG 1 Pathology: See HPI Imaging: See HPI Impression: Bulky stage IIIc (T3 N2 M0) adenocarcinoma the distal rectum extending to the anus associate with bulky pelvic and inferior periaortic adenopathy. She is not a surgical candidate at this time given the bulkiness of her disease she should proceed with neoadjuvant pelvic and inferior para-aortic radiation with sensitizing infusional 5-FU chemotherapy. She has ongoing iron deficiency anemia and will be undergoing iron infusion today. She has had a rectal abscess now under good control following I&D wound packing and antibiotic therapy. Plan: She will return here for simulation. We will fuse her PET CT scan with our planning CT scan. Will use IMRT optimization to cover sites of known disease with optimal sparing of surrounding normal small bowel. Treatment will start once cleared to initiate 5-FU by the medical oncologists here. Anticipating that we will treat her to 50 Rosario in 25-28 treatment fractions. I discussed the acute toxicities of fatigue nausea vomiting and diarrhea. I also discussed the chronic toxicities of ovarian failure and infertility occurring as a result of treatment. Signed by: 08/14/2024 8:22:12 AM <<Signature on File>> Time spent with patient: 60 minutes CPT Code: CPT Code:
[2024-08-15] MEDS: iron sucrose 200 MG in sodium chloride 0.9% (100 ml) 100 ML 220 MG IV (15:28)
[2024-08-15 15:32] VITALS: BP 98/69; PULSE 100; RESP 18; TEMP 36.3; O2SAT 98
[2024-08-15] MEDS: sodium chloride 0.9% 1,000 ML 999 ML IV (15:59)
[2024-08-15 16:03] LABS: Basophils # 0.1 10^3/uL (0.0-0.1); Basophils % 0.3 %; Hematocrit 28.4 % (36-47); Lymphocytes # 1.9 10^3/uL (0.8-4.8); Mean Corpuscular Hemoglobin 28.1 pg (27-33); Mean Corpuscular Volume 90.7 fl (85-98); Mean Platelet Volume 9.7 fL (7.4-10.4); Monocytes # 2.3 10^3/uL (0.2-0.9); Monocytes % 8.4 %; Neutrophils # 21.96 10^3/uL (1.8-7.7); Neutrophils % 82.5 %; Nucleated Red Blood Cells % 0 %; Platelet Count 413 10^3/cmm (157-399); Red Blood Count 3.13 10^6/uL (3.85-5.65); Red Cell Distribution Width 19.1 % (12.1-15.1); White Blood Count 26.68 10^3/uL (3.29-11.43)
[2024-08-15 16:24] LABS: Alanine Aminotransferase 9 U/L (0-33); Albumin Level 3.4 g/dL (3.5-5.2); Alkaline Phosphatase 75 U/L (35-105); Anion Gap 14.2 (5-19); Aspartate Amino Transferase 13 U/L (0-32); Blood Urea Nitrogen 10 mg/dL (6-20); Calcium 8.5 mg/dL (8.5-10.5); Carbon Dioxide 27 mmol/L (22-29); Chloride 97 mmol/L (98-107); Creatinine Clr Calc Pharmacy 98.3153; Globulin 3.6 g/dL (1.3-4.6); Glomerular Filtration Rate 115.9 mL/min (90-130); Glucose 143 mg/dL (65-115); Osmolality Calculated 280 mOsm/kg (285-295); Potassium 4.2 mmol/L (3.5-5.1); Sodium 134 mmol/L (136-145); Total Bilirubin 0.3 mg/dL (0.15-1.2)
== END 2024-08-15 23:59 | disposition home or self-care (01) ==
PROVIDERS: Nurse Practitioner Family; PCP Family Medicine; Visit Provider Internal Medicine Hematology & Oncology
DX: Z53.9 Procedure and treatment not carried out, unspecified reason (principal); Z51.0 Encounter for antineoplastic radiation therapy; C20 Malignant neoplasm of rectum; Z79.899 Other long term (current) drug therapy; D50.0 Iron deficiency anemia secondary to blood loss (chronic)
CPT/HCPCS: 36593; 71260; 74177; 77300; 77301; 77334; 77338; 77470; 80053; 82378; 82607; 82728; 82746; 83540; 83550; 83615; 83735; 84238; 85007; 85025; 85045; 96361; 96365; 96366; 96368; 96375; 96413; 96415; 96416; 96523; J0640; J1100; J1756; J2469; J2997; J7030; J7060; J9190; J9263

== ENCOUNTER 2024-08-15 17:31 | Inpatient (IN) | payer BC, MEDICAID, SELFPAY ==
[2024-08-15 17:41] VITALS: BMI 17.2
[2024-08-15 17:49] VITALS: BP 105/68; PULSE 123; RESP 15; TEMP 36.4; O2SAT 99
--- NOTE | 2024-08-15 18:09 | CTR_ITS ---
PROCEDURE INFORMATION: Exam: CT Abdomen And Pelvis With Contrast Exam date and time: 08/15/2024 8:47 PM Age: 34 years old Clinical indication: Abdominal pain; Localized; Lower; Additional info: Perirectal abscess TECHNIQUE: Imaging protocol: Computed tomography of the abdomen and pelvis with contrast. Radiation optimization: All CT scans at this facility use at least one of these dose optimization techniques: automated exposure control; mA and/or kV adjustment per patient size (includes targeted exams where dose is matched to clinical indication); or iterative reconstruction. Contrast material: OMNI 350; Contrast volume: 100 ml; Contrast route: INTRAVENOUS (IV); COMPARISON: CT chest abdpel w/*[id number] 07/31/2024 8:13 AM RADIATION DOSE METRICS: Total DLP (mGy-cm): 337.22 FINDINGS: Liver: Normal. No mass. Gallbladder and biliary ducts: Normal. No calcified stones. No ductal dilation. Pancreas: Normal. No ductal dilation. Spleen: There is splenomegaly with the spleen measuring 17.3 cm. Adrenal glands: Normal. No mass. Kidneys and ureters: Normal. No hydronephrosis. Stomach and bowel: Redemonstrated the thickening of the rectal wall, likely representing the patient's known primary malignancy. Resolution of the previously described left perirectal abscess. Appendix: No evidence of appendicitis. Intraperitoneal space: Unremarkable. No free air. No significant fluid collection. Vasculature: Pelvic phleboliths. Lymph nodes: Similar enlarged perirectal lymph nodes as well as iliac and retroperitoneal lymph nodes, the largest in the left iliac space measuring 7.6 x 4.3 cm. Urinary bladder: Unremarkable as visualized. Reproductive: Unremarkable as visualized. Extraperitoneal space: Mild increase in the presacral fat stranding and inflammatory changes. Bones/joints: Unremarkable. No acute fracture. Soft tissues: Unremarkable. CT/CT abdomen pelvis w con* [id number] IMPRESSION: 1. Resolution of the previously described perirectal abscess. 2. Increase in the perirectal inflammatory changes with fat stranding, that can be related to treatment or proctitis. No new abscess formation. 3. Stable enlarged abdominal and pelvic lymph nodes with rectal mass.
--- NOTE | 2024-08-15 18:18 | PM.HP ---
Providers/Chief Complaint Admitting Physician: Matthew Sierra Primary Care Provider: Ritika Bejarano MD Chief Complaint: Perirectal Abscess History of Present Illness With rectal cancer on neoadjuvant chemotherapy, with recent hospitalization and treatment of perirectal abscess, underwent I&D, packing, received antibiotics, and discharged with Augmentin for additional 10 days, was referred for admission to the hospital from oncology clinic today where she presented due to malaise, fatigue, generalized weakness, decreased oral intake, perirectal pain, also experiencing some hematochezia returning, and noted to have some pus draining around the packing. Found to have leukocytosis 26.7, sinus tachycardia 105. Leukocytosis is increased from prior of 12. She has been experiencing diarrhea. Review of Systems Const: Reports: fatigue and malaise ENMT: Denies: throat pain Card: Denies: chest pain, edema, pre-syncope or dyspnea on exertion Resp: Denies: dyspnea, productive cough, change in phlegm color or hemoptysis GI: Reports: diarrhea and hematochezia; Denies: abdominal pain, nausea, vomiting, constipation or melena : Denies: flank pain, urinary frequency or hematuria Musc: Denies: back pain, joint swelling or joint redness Skin/Breast: Denies: rash Neuro: Denies: headache(s) Medications/Allergies Home Medications Medication Instructions Recorded Confirmed Last Taken Type CBD gummy 5 mg PO 1XD PRN Pain 05/09/24 08/15/24 08/13/24 22:00 History ferrous sulfate 325 mg (65 mg 325 mg PO TID 05/09/24 08/15/24 08/14/24 History iron) tablet multivitamin 1 tab PO DAILY 05/09/24 08/15/24 Unknown History ondansetron HCl 4 mg tablet 4 mg PO QID PRN Nausea/vomiting 05/28/24 08/15/24 Unknown Rx #30 tabs amoxicillin 875 mg-potassium 1 tab PO BID 10 days #20 tabs 08/08/24 08/15/24 08/15/24 08:00 Rx clavulanate 125 mg tablet docusate sodium 100 mg capsule 100 mg PO BID #14 caps 08/08/24 08/15/24 08/15/24 08:00 Rx (Colace) oxycodone-acetaminophen 10 mg-325 1 tab PO Q6H PRN pain #28 tabs 08/08/24 08/15/24 08/15/24 08:00 Rx mg tablet (Percocet) Allergies Allergy/AdvReac Type Severity Reaction Status Date / Time shellfish derived Allergy Mild nothing Verified 08/07/24 07:56 noticeable PFSH Acute PFSH: Medical History Iron deficiency anemia Rectal cancer Surgical History Port-A-Cath in place History of colonoscopy (04/19/24) Family History Other Cancer Stroke Denies family history of Diabetes CAD (coronary artery disease) Chronic kidney disease (CKD) Lung disease Social History Smoking and tobacco/nicotine status: never used tobacco/nicotine Second hand smoke exposure: Yes Alcohol intake: never Substance/Drug Use: never Lives independently: Yes Marital status: Single Vitals/I&O/Wt Last Vital Signs Temp 97.6 F 08/15/24 17:49 Pulse 123 H 08/15/24 17:49 Resp 15 08/15/24 17:49 BP 105/68 08/15/24 17:49 Pulse Ox 99 08/15/24 17:49 O2 Del Method Room Air 08/15/24 17:49 Weight last 48 hrs Weight 48.308 kg Physical Exam Const: COMMON NORMALS: patient oriented x3 and alert GENERAL APPEARANCE: cooperative NUTRITIONAL APPEARANCE: thin ORIENTATION/CONSCIOUSNESS: Yes awake HENMT: COMMON NORMALS: oropharynx normal Neck/C-Spine: COMMON NORMALS: no JVD Resp: COMMON NORMALS: normal respiratory effort and clear to auscultation bilaterally AUSCULTATION: clear to auscultation bilaterally Cardio: COMMON NORMALS: no JVD, regular rhythm, S1 normal heart sound present, S2 normal heart sound present and No murmurs present (Cardio) RHYTHM: regular rhythm HEART SOUNDS: S1 normal heart sound present and S2 normal heart sound present GI: COMMON NORMALS: Normal to inspection, nondistended, normoactive bowel sounds present, Soft to palpation and non-tender PALPATION: Yes Soft to palpation Extremity: COMMON NORMALS: no joint enlargement and no pedal edema Neuro: COMMON NORMALS: patient oriented x3 and moves all extremities SENSORIUM/ORIENTATION: Yes alert Skin: COMMON NORMALS: no rashes or lesions noted GENERAL SKIN EXAM: no rashes or lesions noted A&P Assessment and plan (1) Perirectal abscess: Status post I&D peritoneal abscess on 08/07, with packing, discharged on Augmentin, but on assessment in oncology office. Pararectal abscess with systemic symptoms with malaise, generalized weakness, fatigue, return of hematochezia, purulent discharge around the packing. Also with diarrhea. Reviewed vitals, CBC, BMP, WBC up to 26.7, predominant neutrophilic, neutrophils 22. Reviewed cultures, anaerobic culture with Fumich superficial parth, anaerobic culture with porphyromona asaccharolytica and Finegoldia magna. Discussed with oncologist. Discussed with surgery. Pending assessment. In the meantime recommendation to obtain CT abdomen pelvis with IV without oral contrast. Discussed with her. Noted shellfish allergy, she had CT with contrast dye last time without any issues. Agreeable to proceed. Requested. Pending surgical reassessment for additional I&D/debridement depending on findings. Obtain blood culture, lactic acid. In the meantime empiric antibiotic coverage with Zosyn and will cover for MRSA with linezolid. Monitor for risk of agranulocytosis. C. difficile. Obtain wound culture. IV fluid. Hold iron supplementation for now. (2) Diarrhea: Check C. difficile. Denies history of C. difficile in the past. With poor oral intake, dehydration, will give IV hydration with normal saline. (3) Malaise: Additional assessment for residual or recurrent perirectal abscess with leukocytosis, with diarrhea assess for C. difficile. With dehydration, rehydrate. (4) Leukocytosis: Severe leukocytosis. Additional assessment management as above including assessment for C. difficile. (5) Hematochezia: Additional assessment CT abdomen pelvis with IV contrast. Only SCD for DVT prophylaxis. 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 Plan Iron deficiency anemia: Hold iron supplementation for now. Attestations Medical Necessity Statement*: Admission of over 2 midnights anticipated for assessment of management of perirectal abscess with systemic symptoms, malaise, fatigue, purulence around packing after peritoneal access drainage, additional assessment with CT for need for additional drainage or debridement, diarrhea, hematochezia and a lady with underlying rectal cancer. and High MDM includes amount and/or complexity of data reviewed/ordered [ resulted lab(s)/test(s), ordered lab(s)/test(s) and other healthcare professional discussion] and described risk of complication, morbidity or mortality of management as documented Diagnoses Perirectal abscess K61.1 Diarrhea R19.7 Malaise R53.81 Leukocytosis D72.829 Hematochezia K92.1 Adenocarcinoma of rectum C20
[2024-08-15] MEDS: linezolid premix 600 MG/300 ML PREMIX 300 MG IV (18:32)
[2024-08-15] MEDS: sodium chloride 0.9% 1,000 ML 75 ML IV (18:33)
[2024-08-15 20:00] VITALS: BP 102/66; PULSE 120; RESP 19; TEMP 37.2; O2SAT 100
[2024-08-15] MEDS: piperacillin-tazobactam 3.375 GM in sodium chloride 0.9% (plus) 50 ML IV (20:19)
[2024-08-15 20:26] LABS: Lactic Sepsis W/Reflex 2.3 mmol/L (0.5-2.2)
[2024-08-15] MEDS: iohexol 350 mg/mL 500 mL Btl (per mL) IV (20:58)
[2024-08-15 21:53] LABS: Reflex Lactate Order REFLEX LACTIC ORDERD
[2024-08-15 22:57] LABS: C.Diff PCR (Lab) NEGATIVE (Negative)
[2024-08-15 23:16] LABS: Lactic Acid level (Lactate) 1.4 mmol/L (0.5-2.2)
[2024-08-16] VITALS (7 sets, daily range): BP systolic 93–113; BP diastolic 45–67; PULSE 97–121; RESP 12–19; TEMP 36.7–37.7; O2SAT 96–100
[2024-08-16] MEDS: piperacillin-tazobactam 3.375 GM in sodium chloride 0.9% (plus) 50 ML IV ×3 (02:40→20:09)
[2024-08-16 05:11] LABS: Basophils # 0.1 10^3/uL (0.0-0.1); Basophils % 0.3 %; Eosinophils # 0.1 10^3/uL (0.0-0.8); Eosinophils % 0.3 %; Hematocrit 24.2 % (36-47); Lymphocytes # 1.9 10^3/uL (0.8-4.8); Lymphocytes % 9.6 %; Mean Corpuscular HGB Conc 30.6 g/dL (30-55); Mean Corpuscular Hemoglobin 27.7 pg (27-33); Mean Corpuscular Volume 90.6 fl (85-98); Mean Platelet Volume 9.8 fL (7.4-10.4); Monocytes # 1.6 10^3/uL (0.2-0.9); Monocytes % 8.2 %; Neutrophils # 15.56 10^3/uL (1.8-7.7); Neutrophils % 80.7 %; Nucleated Red Blood Cells % 0 %; Platelet Count 361 10^3/cmm (157-399); Red Blood Count 2.67 10^6/uL (3.85-5.65)
[2024-08-16 05:30] LABS: Alanine Aminotransferase 7 U/L (0-33); Albumin Level 2.9 g/dL (3.5-5.2); Alkaline Phosphatase 69 U/L (35-105); Anion Gap 13.9 (5-19); Aspartate Amino Transferase 10 U/L (0-32); Blood Urea Nitrogen 8 mg/dL (6-20); Calcium 7.8 mg/dL (8.5-10.5); Carbon Dioxide 23 mmol/L (22-29); Chloride 100 mmol/L (98-107); Creatinine Clr Calc Pharmacy 144.1382; Globulin 2.9 g/dL (1.3-4.6); Glucose 101 mg/dL (65-115); Magnesium 1.8 mg/dL (1.7-2.3); Osmolality Calculated 274 mOsm/kg (285-295); Potassium 3.9 mmol/L (3.5-5.1); Sodium 133 mmol/L (136-145); Total Bilirubin 0.2 mg/dL (0.15-1.2); Total Protein 5.8 g/dL (6.6-8.7)
[2024-08-16] MEDS: linezolid premix 600 MG/300 ML PREMIX 300 MG IV ×2 (06:45→17:18)
[2024-08-16] MEDS: sodium chloride 0.9% 1,000 ML 75 ML IV (06:47)
--- NOTE | 2024-08-16 11:14 | PC.NURSE ---
This nurse contacts Dr. Brown. Dr. Brown does not plan on doing any procedures today on pt. Pt can eat. Dr. Brown does not want perirectal abscess packed. States just to cover with gauze.
--- NOTE | 2024-08-16 13:42 | P.CONIM_ITS ---
Providers/Reason For Consult 2 Consulting Physician/Specialty*: Dr. Raheel Brown, DO/General Surgery Reason for Consult*: Leukocytosis/previous perirectal abscess Attending Physician: Matthew Sierra Primary Care Provider: Ritika Bejarano MD History of Present Illness History of Present Illness Aurora Corrales is a 34 year old female Who underwent incision and drainage of a perirectal abscess last week. She has been packing the wound since. She was seen yesterday and infusion therapy for chemotherapy and she was found to have a white blood cell count of 26. She is also been having diarrhea. She has some sharp pain at her perirectal incision site that does not radiate. Palpation makes pain worse. Not makes pain better Review of Systems 2 General: Reports: 10 or more systems reviewed and unremarkable except in HPI and below Medications/Allergies Home Medications Medication Instructions Recorded Confirmed Last Taken Type CBD gummy 5 mg PO 1XD PRN Pain 05/09/24 08/15/24 08/13/24 22:00 History ferrous sulfate 325 mg (65 mg 325 mg PO TID 05/09/24 08/15/24 08/14/24 History iron) tablet multivitamin 1 tab PO DAILY 05/09/24 08/15/24 Unknown History ondansetron HCl 4 mg tablet 4 mg PO QID PRN Nausea/vomiting 05/28/24 08/15/24 Unknown Rx #30 tabs amoxicillin 875 mg-potassium 1 tab PO BID 10 days #20 tabs 08/08/24 08/15/24 08/15/24 08:00 Rx clavulanate 125 mg tablet docusate sodium 100 mg capsule 100 mg PO BID #14 caps 08/08/24 08/15/24 08/15/24 08:00 Rx (Colace) oxycodone-acetaminophen 10 mg-325 1 tab PO Q6H PRN pain #28 tabs 08/08/24 08/15/24 08/15/24 08:00 Rx mg tablet (Percocet) Allergies Allergy/AdvReac Type Severity Reaction Status Date / Time shellfish derived Allergy Mild nothing Verified 08/07/24 07:56 noticeable Current Medications Generic Name Dose Route Start Last Admin Trade Name Freq PRN Reason Stop Dose Admin Sodium Chloride 1,000 mls @ 75 mls/hr 08/15/24 18:00 08/16/24 06:47 Sodium Chloride 0.9% IV 75 mls/hr .[id number] BIA Administration Piperacillin Sod/Tazobactam 50 mls @ 12.5 mls/hr 08/15/24 19:00 08/16/24 11:25 Sod 3.375 gm/ Sodium Chloride IV 12.5 mls/hr Q8H BIA Administration Protocol Linezolid 600 mg in 300 mls @ 300 mls/hr 08/15/24 18:00 08/16/24 08:34 Zyvox Premix IV Infused Q12H BIA Infusion Protocol PFSH Acute 2 PFSH: Medical History Iron deficiency anemia Rectal cancer Surgical History Port-A-Cath in place History of colonoscopy (04/19/24) Family History Other Cancer Stroke Denies family history of Diabetes CAD (coronary artery disease) Chronic kidney disease (CKD) Lung disease Social History Smoking and tobacco/nicotine status: never used tobacco/nicotine Second hand smoke exposure: Yes Alcohol intake: never Substance/Drug Use: never Lives independently: Yes Marital status: Single Vitals/I&O/Wt Last Vital Signs Temp 98.0 F 08/16/24 12:00 Pulse 97 08/16/24 12:00 Resp 12 08/16/24 12:00 BP 106/67 08/16/24 12:00 Pulse Ox 97 08/16/24 12:00 O2 Del Method Room Air 08/16/24 12:00 08/15/24 08/16/24 08/16/24 22:59 06:59 14:59 Intake Total 470 / 470 833.75 / 1303.75 420 / 420 Output Total 300 / 300 600 / 600 Balance 470 / 470 533.75 / 1003.75 -180 / -180 Weight last 48 hrs Weight 115 lb 7 oz Weight 106 lb 8 oz Physical Exam 2 Narrative: General : Patient is well developed , no acute distress, oriented x3 Head : Normal cephalic, a-traumatic. Ears : Pinnae and external canal are normal. Hearing is normal. Eyes : PERRLA, Sclera and injection are normal. No conjunctival discharge. Nose : Mucous membranes are without erythema. Throat : buccal mucosa is normal, gums are without significant recession or hypertrophy. Lungs : Equal chest rise bilaterally, no use of accessory muscles, trachea is midline. Cor : Rate and rhythm are normal. Abdomen : Soft, ND, NT, no g/r/m Skin: Incision without erythema. There is some induration and a very small amount of exudate Extremities : No edema, no cyanosis or clubbing, dorsalis pedis pulses are present bilaterally, non-tender to palpation of calves. Upper extremities are normal bilaterally. Back : non-tender to palpation, no CVA tenderness. Neuro : CN II - XII intact, Upper and lower extremities have equal and full strength Data 08/16/24 04:45 08/16/24 04:45 Micro: Microbiology 08/15/24 19:56 Blood Culture - Preliminary Blood SPECIMEN COLLECTED 08/15/24 19:52 Blood Culture - Preliminary Blood SPECIMEN COLLECTED A&P Assessment and plan (1) Diarrhea: (2) Leukocytosis: Plan CT showed resolution of her perirectal abscess Cover wound with dry gauze daily No acute surgical intervention Medical management per hospitalist General Surgery will sign off. Please reconsult if the need arises Coding Level of Care Code 73820 Diagnoses Diarrhea R19.7 Leukocytosis D72.829
[2024-08-16] MEDS: magnesium sulfate premix 2 GM/50 ML PIGGYBACK IV (15:05)
--- NOTE | 2024-08-16 20:28 | P.PN_ITS ---
Subjective 2 Subjective: She is feeling slightly better today. Diarrhea with slight improvement. Having some hunger pains. Vitals/I&O/Wt Last Vital Signs Temp 99.0 F 08/16/24 19:46 Pulse 110 H 08/16/24 19:46 Resp 17 08/16/24 19:46 BP 99/66 08/16/24 19:46 Pulse Ox 98 08/16/24 19:46 O2 Del Method Room Air 08/16/24 12:00 08/16/24 08/16/24 08/16/24 06:59 14:59 22:59 Intake Total 833.75 / 1303.75 420 / 420 520 / 940 Output Total 300 / 300 600 / 600 Balance 533.75 / 1003.75 -180 / -180 520 / 340 Weight last 48 hrs Weight 52.362 kg Weight 48.308 kg Physical Exam 2 Const: COMMON NORMALS: patient oriented x3 and alert GENERAL APPEARANCE: c ooperative NUTRITIONAL APPEARANCE: thin ORIENTATION/CONSCIOUSNESS: Yes awake HENMT: COMMON NORMALS: oropharynx normal Neck/C-Spine: COMMON NORMALS: no JVD Resp: COMMON NORMALS: normal respiratory effort and clear to auscultation bilaterally AUSCULTATION: clear to auscultation bilaterally Cardio: COMMON NORMALS: no JVD, regular rhythm, S1 normal heart sound present, S2 normal heart sound present and No murmurs present (Cardio) RHYTHM: regular rhythm HEART SOUNDS: S1 normal heart sound present and S2 normal heart sound present GI: COMMON NORMALS: Normal to inspection, nondistended, normoactive bowel sounds present, Soft to palpation and non-tender PALPATION: Yes Soft to palpation Extremity: COMMON NORMALS: no joint enlargement and no pedal edema Neuro: COMMON NORMALS: patient oriented x3 and moves all extremities S ENSORIUM/ORIENTATION: Yes alert Skin: COMMON NORMALS: no rashes or lesions noted GENERAL SKIN EXAM: no rashes or lesions noted Data 08/16/24 04:45 08/16/24 04:45 Micro: Microbiology 08/15/24 19:56 Blood Culture - Preliminary Blood NEGATIVE TO DATE 08/15/24 19:52 Blood Culture - Preliminary Blood NEGATIVE TO DATE 08/15/24 20:20 Gram Stain - Final Buttock A&P Assessment and plan (1) Perirectal abscess: Reviewed vitals, CBC, CMP, CT abdomen pelvis, discussed with surgery, reviewed surgery note. Discussed with nursing, high risk case manager. Discussed with her, noted treated abscess without recurrence. Noted proctitis. Noted still present leukocytosis but with improvement of 19.3. Still present tachycardia 110. Lactic acid noted with improvement after resuscitation. Continue Zosyn, linezolid. Monitor for risk of agranulocytosis, C. difficile. She is still having diarrhea, C. difficile reviewed, negative. Requested Salmonella, Shigella, Campylobacter. Diarrhea may be secondary to antibiotics plus stool softeners. Reassess blood counts. Monitor vitals. Follow-up blood culture. Reviewed blood culture so far negative. Wound culture with few gram- negative rods. DC IV fluid. Encourage oral hydration. Discussed with her, hold iron supplementation for now. (2) Diarrhea: Reviewed C. difficile. Denies history of C. difficile in the past. With poor oral intake, dehydration, will give IV hydration with normal saline. (3) Malaise: Improving. Continue treatment of underlying causes as above. (4) Leukocytosis: Severe leukocytosis. Improving. Repeat blood counts. C. difficile negative. (5) Hematochezia: Additional assessment CT abdomen pelvis with IV contrast. Only SCD for DVT prophylaxis. 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 Plan Iron deficiency anemia: Acute on chronic anemia hemoglobin down to 7.4. Discussed with her. Hematochezia so far with slight improvement. Reassess. Possibly some dilutional component secondary to IV hydration. Repeat blood counts requested. Hold iron supplementation for now. Attestations 2 Medical Necessity Statement*: Continue admission for assessment and management of proctitis, perirectal abscess, acute on chronic iron deficiency anemia. and High MDM includes amount and/or complexity of data reviewed/ordered [ resulted lab(s)/test(s), ordered lab(s)/test(s) and other healthcare professional discussion] and described risk of complication, morbidity or mortality of management as documented Diagnoses Perirectal abscess K61.1 Diarrhea R19.7 Malaise R53.81 Leukocytosis D72.829 Hematochezia K92.1 Adenocarcinoma of rectum C20
[2024-08-17 03:43] VITALS: BP 107/63; PULSE 96; RESP 18; TEMP 37.3; O2SAT 93
[2024-08-17] MEDS: piperacillin-tazobactam 3.375 GM in sodium chloride 0.9% (plus) 50 ML IV ×3 (04:03→18:31)
[2024-08-17 05:46] LABS: Basophils # 0.1 10^3/uL (0.0-0.1); Basophils % 0.4 %; Eosinophils % 0.3 %; Lymphocytes # 1.4 10^3/uL (0.8-4.8); Lymphocytes % 10.1 %; Mean Corpuscular HGB Conc 30.4 g/dL (30-55); Mean Corpuscular Hemoglobin 27.8 pg (27-33); Mean Corpuscular Volume 91.5 fl (85-98); Mean Platelet Volume 10.3 fL (7.4-10.4); Monocytes % 7.2 %; Neutrophils # 11.24 10^3/uL (1.8-7.7); Neutrophils % 81.3 %; Nucleated Red Blood Cells % 0 %; Platelet Count 419 10^3/cmm (157-399); Red Blood Count 2.84 10^6/uL (3.85-5.65); Red Cell Distribution Width 18.8 % (12.1-15.1); White Blood Count 13.82 10^3/uL (3.29-11.43)
[2024-08-17 06:16] LABS: Alanine Aminotransferase 9 U/L (0-33); Albumin Level 3.1 g/dL (3.5-5.2); Alkaline Phosphatase 90 U/L (35-105); Anion Gap 15.8 (5-19); Aspartate Amino Transferase 13 U/L (0-32); Blood Urea Nitrogen 6 mg/dL (6-20); Calcium 7.9 mg/dL (8.5-10.5); Carbon Dioxide 23 mmol/L (22-29); Chloride 100 mmol/L (98-107); Creatinine Clr Calc Pharmacy 142.6399; Globulin 3.1 g/dL (1.3-4.6); Glucose 99 mg/dL (65-115); Osmolality Calculated 278 mOsm/kg (285-295); Potassium 3.8 mmol/L (3.5-5.1); Sodium 135 mmol/L (136-145); Total Bilirubin 0.2 mg/dL (0.15-1.2); Total Protein 6.2 g/dL (6.6-8.7)
[2024-08-17 07:38] VITALS: BP 98/57; PULSE 101; RESP 17; TEMP 36.3; O2SAT 98
[2024-08-17] MEDS: linezolid premix 600 MG/300 ML PREMIX 300 MG IV (08:27)
--- NOTE | 2024-08-17 09:54 | CTR_ITS ---
PROCEDURE INFORMATION: Exam: CT Abdomen And Pelvis With Contrast Exam date and time: 08/17/2024 2:54 PM Age: 34 years old Clinical indication: Abdominal tenderness; colorectal cancer follow-up. Reports stool-like liquid draining from abscess cavity with, diarrheal bms. Assess for any ec fistula TECHNIQUE: Imaging protocol: Computed tomography of the abdomen and pelvis with contrast. Radiation optimization: All CT scans at this facility use at least one of these dose optimization techniques: automated exposure control; mA and/or kV adjustment per patient size (includes targeted exams where dose is matched to clinical indication); or iterative reconstruction. Contrast material: OMNIPAQUE 350; Contrast volume: 75 ml; Contrast route: INTRAVENOUS (IV); COMPARISON: CT abdomen pelvis w con* [id number] 08/15/2024 8:47 PM RADIATION DOSE METRICS: Total DLP (mGy-cm): 321.56 FINDINGS: Liver: Normal. No mass. Gallbladder and biliary ducts: Normal. No calcified stones. No ductal dilation. Pancreas: Normal. No ductal dilation. Spleen: The spleen is enlarged measuring 15.2 cm, similar to the prior study. Adrenal glands: Normal. No mass. Kidneys and ureters: Normal. No hydronephrosis. Stomach and bowel: Prominent irregular rectal mucosal thickening consistent with the history of colorectal carcinoma. There is a peripherally enhancing complex air-fluid collection extending circumferentially along the bilateral periphery of the thickened rectal mucosa, consistent with abscess formation. The abscess extends circumferentially along posterior and left/right sides of the rectum cannot be differentiated from the adjacent thickened rectal mucosa. There is perirectal inflammatory stranding. Colonic constipation is present. Appendix: No evidence of appendicitis. Intraperitoneal space: Unremarkable. No free air. No significant fluid collection. Vasculature: Unremarkable. No abdominal aortic aneurysm. Lymph nodes: Perirectal and retroperitoneal lymph nodes appear stable when compared to the prior CT scan the largest of which is along the left iliac chain measuring 7.6 x 3.9 cm in the AP/transverse dimensions. Urinary bladder: Unremarkable as visualized. Reproductive: Unremarkable as visualized. Bones/joints: Unremarkable. No acute fracture. Soft tissues: Unremarkable. CT/CT abdomen pelvis w con* [id number] IMPRESSION: 1. Complex air-fluid collection extends along both sides and posterior to the rectum consistent with an abscess formation. This cannot be differentiated from the adjacent thickened rectal mucosa.A fistulous tract although not directly visualized, cannot be excluded and is likely. 2. Prominent irregular rectal mucosal thickening consistent with the history of colorectal carcinoma. 3. Perirectal and retroperitoneal lymphadenopathy appears stable from the prior study. 4. Colonic constipation is present. 5. Splenomegaly. 6. There is perirectal inflammatory stranding consistent with proctitis.
[2024-08-17] MEDS: morphine 4 mg/mL SDV 1 mL IVP (10:48)
[2024-08-17 11:23] VITALS: BP 96/61; PULSE 94; RESP 18; TEMP 36.7; O2SAT 98
--- NOTE | 2024-08-17 11:52 | PC.CHAP ---
Pastoral Care Encounter/Spiritual Assessment Type of Contact [x] Declined awning hanger helper visit [] Patient/Family/Request visit [] Outpatient visit [] Follow-up visit [] Physician referral [] Code/Alert [] Routine visit [] Staff referral [] Actively dying [] Patient sleeping [] Family support [] [] Out of room [] Palliative care [] Parental [] Receiving care in room [] Pre-surgical visit [] Trauma [] Long length of stay [] ICU visit [] Other: Relational/Emotional Strength [] Patient feels connected with others/family/visitors/staff [x] Distress [] Loneliness/isolation [] Abandonment Spirituality of Patient [] Person of Jessica [] Attends Hoahaoism of their Jessica [] Believes in Prayer [] Reads Bible or Oriental Orthodox materials [x] There are Spiritual issues to be addressed Guest Service Aide Interventions [] Prayer [] Active listening [] Non-anxious presence [] Spiritual/emotional support [] Crisis/trauma care [] Spiritual counseling [] Bereavement support [] Provided bereavement packet [] Provided Bible/devotional materials [] Provided toy/stuffed animal, coloring book to patient or family member [] Provided Communion [] Anointing/[place] [] Salvation [] Completed spiritual assessment [] Other: Impact on Illness or Injury [x] Angry [] Fearful [x] Anxious [] Often cries [] Exhaustion [] Unable to work [] Unable to attend mandaeism [] Unable to walk/stand [] Unable to read [] Unable to drive [] Unable to eat/drink [] Unable to sleep [] Unable to be with family [] Patient intubated [] Other: Summary Time spent with patient
[2024-08-17] MEDS: iohexol 350 mg/mL 500 mL Btl (per mL) IV (15:00)
[2024-08-17] MEDS: iohexol 350 mg/mL 500 mL Btl (per mL) PO (15:11)
[2024-08-17 15:57] VITALS: BP 94/48; PULSE 107; RESP 17; TEMP 36.7; O2SAT 96
[2024-08-17] MEDS: lactobacillus 1 Tablet 1 TAB PO (16:02)
--- NOTE | 2024-08-17 18:14 | P.PN_ITS ---
Subjective 2 Subjective: Having further fluid expressed from abscess cavity with diarrheal bowel movements. Vitals/I&O/Wt Last Vital Signs Temp 98.1 F 08/17/24 15:57 Pulse 107 H 08/17/24 15:57 Resp 17 08/17/24 15:57 BP 94/48 08/17/24 15:57 Pulse Ox 96 08/17/24 15:57 O2 Del Method Room Air 08/17/24 15:57 08/17/24 08/17/24 08/17/24 06:59 14:59 22:59 Intake Total 1989 350 / 350 50 / 400 Balance 50 / 1390 350 / 350 50 / 400 Weight last 48 hrs Weight 50.893 kg Weight 52.362 kg Physical Exam 2 Const: COMMON NORMALS: patient oriented x3 and alert GENERAL APPEARANCE: c ooperative NUTRITIONAL APPEARANCE: thin ORIENTATION/CONSCIOUSNESS: Yes awake HENMT: COMMON NORMALS: oropharynx normal Neck/C-Spine: COMMON NORMALS: no JVD Resp: COMMON NORMALS: normal respiratory effort and clear to auscultation bilaterally AUSCULTATION: clear to auscultation bilaterally Cardio: COMMON NORMALS: no JVD, regular rhythm, S1 normal heart sound present, S2 normal heart sound present and No murmurs present (Cardio) RHYTHM: regular rhythm HEART SOUNDS: S1 normal heart sound present and S2 normal heart sound present GI: COMMON NORMALS: Normal to inspection, nondistended, normoactive bowel sounds present, Soft to palpation and non-tender PALPATION: Yes Soft to palpation Extremity: COMMON NORMALS: no joint enlargement and no pedal edema Neuro: COMMON NORMALS: patient oriented x3 and moves all extremities S ENSORIUM/ORIENTATION: Yes alert Skin: COMMON NORMALS: no rashes or lesions noted GENERAL SKIN EXAM: no rashes or lesions noted Data 08/17/24 04:12 08/17/24 04:12 Micro: Microbiology 08/15/24 20:20 Gram Stain - Final Buttock Wound Culture - Preliminary Gram Negative Rods 08/15/24 19:56 Blood Culture - Preliminary Blood NEGATIVE TO DATE 08/15/24 19:52 Blood Culture - Preliminary Blood NEGATIVE TO DATE A&P Assessment and plan (1) Perirectal abscess: Having further fluid expressed from abscess cavity with diarrheal bowel movements. Reviewed vitals, CBC, CMP, blood culture. Noted improvement in leukocytosis, tachycardia, although heart rate still low 100s. Discussed with her additional CT imaging with IV and oral contrast which was obtained. Reassess kidney function with risk of kidney injury with IV contrast. Discussed results with surgery, with her and her mom, with finding of complex air-fluid collection extending along both sides and posterior to the rectum consistent with an abscess formation. This cannot be differentiated from the adjacent thickened rectal mucosa. Fistulous tract although not directly visualized cannot be excluded and is likely. Proctitis is noted. Additional finding as previously, with also noted some colonic constipation. Splenomegaly. Surgery recommending assessment by colorectal surgery. Discussing with her and her mother, she has been setting up with colorectal surgery at [facility] in [place] with Dr. Rosario. They have contacted his office. We have reached out to [facility] for transfer arrangements, although do not have a bed available tonight. Discussing with her and her mother they prefer to try again in the morning to try to make it to [facility] to see their surgeon rather than try somewhere else. Continue IV antibiotics with Zosyn, linezolid. Monitor for risk of agranulocytosis, C. difficile. Monitor vitals. Reassess blood counts. Discussed with her, hold iron supplementation for now. (2) Diarrhea: Reviewed Salmonella, Shigella, complete Bactrim studies. Discussed with microbiology tech, not yet available.Should be back in a day or 2. Reviewed C. difficile. Denies history of C. difficile in the past. With poor oral intake, dehydration, will give IV hydration with normal saline. (3) Malaise: Improving. Continue treatment of underlying causes as above. (4) Leukocytosis: Severe leukocytosis. Improving. Repeat blood counts. C. difficile negative. (5) Hematochezia: Additional assessment CT abdomen pelvis with IV contrast. Only SCD for DVT prophylaxis. 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 Plan Iron deficiency anemia: Acute on chronic anemia hemoglobin down to 7.4. Discussed with her. Hematochezia so far with slight improvement. Reassess. Possibly some dilutional component secondary to IV hydration. Repeat blood counts requested. Hold iron supplementation for now. 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 , High MDM includes amount and/or complexity of data reviewed/ordered [ resulted lab(s)/test(s), ordered lab(s)/test(s) and other healthcare professional discussion] and described risk of complication, morbidity or mortality of management as documented and High Time for a total of 60 minutes, includes reviewing past or interval history, examining/interviewing patient, placing orders, counseling patient/family/other support, updating patient/family/other support, discussing plan of care with staff, communicating with other healthcare providers, documenting encounter and coordinating care Diagnoses Perirectal abscess K61.1 Diarrhea R19.7 Malaise R53.81 Leukocytosis D72.829 Hematochezia K92.1 Adenocarcinoma of rectum C20
[2024-08-17 19:51] VITALS: BP 105/67; PULSE 107; RESP 18; TEMP 36.8; O2SAT 98
[2024-08-18] VITALS (10 sets, daily range): BP systolic 100–105; BP diastolic 57–67; PULSE 83–103; RESP 14–18; TEMP 36.7–37; O2SAT 95–98
[2024-08-18] MEDS: morphine 4 mg/mL SDV 1 mL IVP ×4 (01:21→18:00)
[2024-08-18] MEDS: linezolid premix 600 MG/300 ML PREMIX 300 MG IV ×2 (01:22→12:28)
[2024-08-18] MEDS: piperacillin-tazobactam 3.375 GM in sodium chloride 0.9% (plus) 50 ML IV ×2 (04:23→14:10)
[2024-08-18 06:12] LABS: Basophils # 0.1 10^3/uL (0.0-0.1); Basophils % 0.5 %; Eosinophils % 0.3 %; Hematocrit 27.7 % (36-47); Lymphocytes # 2.1 10^3/uL (0.8-4.8); Lymphocytes % 14.8 %; Mean Corpuscular Hemoglobin 27.9 pg (27-33); Mean Corpuscular Volume 89.9 fl (85-98); Mean Platelet Volume 9.4 fL (7.4-10.4); Monocytes # 1.9 10^3/uL (0.2-0.9); Neutrophils # 10.12 10^3/uL (1.8-7.7); Neutrophils % 70.8 %; Nucleated Red Blood Cells % 0 %; Platelet Count 482 10^3/cmm (157-399); Red Blood Count 3.08 10^6/uL (3.85-5.65); Red Cell Distribution Width 18.8 % (12.1-15.1); White Blood Count 14.29 10^3/uL (3.29-11.43)
[2024-08-18 06:28] LABS: Alanine Aminotransferase 15 U/L (0-33); Albumin Level 3.4 g/dL (3.5-5.2); Alkaline Phosphatase 101 U/L (35-105); Anion Gap 15.9 (5-19); Aspartate Amino Transferase 23 U/L (0-32); Blood Urea Nitrogen 5 mg/dL (6-20); Calcium 8.3 mg/dL (8.5-10.5); Carbon Dioxide 24 mmol/L (22-29); Chloride 97 mmol/L (98-107); Creatinine Clr Calc Pharmacy 143.1947; Globulin 3.4 g/dL (1.3-4.6); Glucose 113 mg/dL (65-115); Osmolality Calculated 274 mOsm/kg (285-295); Potassium 3.9 mmol/L (3.5-5.1); Sodium 133 mmol/L (136-145); Total Bilirubin 0.3 mg/dL (0.15-1.2); Total Protein 6.8 g/dL (6.6-8.7)
[2024-08-18] MEDS: lactobacillus 1 Tablet 1 TAB PO ×2 (08:08→17:13)
--- NOTE | 2024-08-18 16:13 | PM.TDS ---
Transfer Summary Providers Date of Admission: 08/15/24 17:31 Date of Discharge/Transfer: 08/18/24 Attending Provider at Admission: Matthew Sierra Attending Provider at Transfer: Matthew Sierra Primary Care Provider: Ritika Bejarano MD Transfer Plans: Anticipated date of transfer: 08/18/24. Diagnoses at Discharge Discharge Diagnosis (1) Perirectal abscess: Status: Acute (2) Diarrhea: Status: Acute (3) Malaise: Status: Acute (4) Leukocytosis: Status: Acute (5) Hematochezia: Status: Acute (6) Adenocarcinoma of rectum: Status: Acute Reason for Visit Reason for Visit Perirectal Abscess Brief History: With rectal cancer on neoadjuvant chemotherapy, with recent hospitalization and treatment of perirectal abscess, underwent I&D, packing, received antibiotics, and discharged with Augmentin for additional 10 days, was referred for admission to the hospital from oncology clinic today where she presented due to malaise, fatigue, generalized weakness, decreased oral intake, perirectal pain, also experiencing some hematochezia returning, and noted to have some pus draining around the packing. Found to have leukocytosis 26.7, sinus tachycardia 105. Leukocytosis is increased from prior of 12. She has been experiencing diarrhea. Hospital Course Hospital Course Antibiotics were transitioned to intravenous, broad-spectrum, with Zosyn, linezolid, she received IV hydration, blood counts were rechecked, with noted deficiency anemia, hemoglobin down to 7.4 lower than prior at 8.8. Iron was held due to active infection while in the hospital. She was assessed by surgery. Initial CT with IV contrast showed resolution of the previously described perirectal abscess. Increase in the peritoneal inflammatory changes with fat stranding that can be related to treatment of proctitis. No new abscess formation. Stable enlarged abdominal and pelvic lymph nodes with rectal mass. Leukocytosis initially showing improvement coming down to 19.3 then 13.8. Hematochezia with improvement. Diarrhea with some improvement but persisting. C. difficile checked and negative. Salmonella, Shigella, complete bacteria sent and pending. With initial improvement consideration was for discharge with continued antibiotic and follow-up with surgery, however, she continues to have symptoms, and is noted having liquid discharge from abscess cavity anytime she was having diarrheal bowel movements. Some persistence of sinus tachycardia. Original cultures from I&D 08/07 growing Porphyromonas asaccharolytica and Finegoldia magna. Wound cultures obtained during this hospitalization so far growing gram-negative rods preliminary. Repeat CT obtained with IV and oral contrast, complex air-fluid collection found on repeat imaging extending along both sides and posterior to the rectum consistent with abscess formation. This cannot be differentiated from the adjacent thickened rectal mucosa. A fistulous tract although not directly visualized, cannot be excluded and is likely. Again noted. Rectal inflammatory stranding consistent with proctitis. Noted irregular rectal mucosal thickening consistent with history of colorectal carcinoma. Perirectal and retroperitoneal lymphadenopathy appearing stable from prior. Incidentally noted colonic constipation, splenomegaly. On further discussion with general surgery recommendation for further assessment and treatment options with colorectal surgery. As per patient and family wishes since they have been setting up with a colorectal surgeon at [facility] in [place] already, transfer arrangements made, and a bed has opened up today where she is currently excepted for further assessment and management by . She is expected to follow-up with her oncologist Dr. Pérez following resolution of infection for further arrangements for chemo and radiation therapy. Physical Exam Narrative: Accompanied by her mom. Const: COMMON NORMALS: patient oriented x3 and alert GENERAL APPEARANCE: cooperative NUTRITIONAL APPEARANCE: thin ORIENTATION/CONSCIOUSNESS: Yes awake HENMT: COMMON NORMALS: oropharynx normal Neck/C-Spine: COMMON NORMALS: no JVD Resp: COMMON NORMALS: normal respiratory effort and clear to auscultation bilaterally AUSCULTATION: clear to auscultation bilaterally Cardio: COMMON NORMALS: no JVD, regular rhythm, S1 normal heart sound present, S2 normal heart sound present and No murmurs present (Cardio) RHYTHM: regular rhythm HEART SOUNDS: S1 normal heart sound present and S2 normal heart sound present GI: COMMON NORMALS: Normal to inspection, nondistended, normoactive bowel sounds present, Soft to palpation and non-tender PALPATION: Yes Soft to palpation Extremity: COMMON NORMALS: no joint enlargement and no pedal edema Neuro: COMMON NORMALS: patient oriented x3 and moves all extremities SENSORIUM/ORIENTATION: Yes alert Skin: COMMON NORMALS: no rashes or lesions noted GENERAL SKIN EXAM: no rashes or lesions noted TS Data Studies Completed and Pending Pending at discharge Category Date Time Status Blood Culture Stat Lab 08/15/24 19:56 Results Stool Culture - Enteric [Salmonella / Shigella / Campy] Lab 08/16/24 08:42 Received Routine Wound Culture and Gram Stain Routine Lab 08/15/24 20:20 Results Completed Studies During Hospitalization Category Date Time Status CT abdomen pelvis w con* [id number] Routine Cat Scan 08/15/24 18:[address] abdomen pelvis w con* [id number] Routine Cat Scan 08/17/24 09:54 Completed Laboratory Last Values WBC 14.29 10^3/uL (3.29-11.43) H 08/18/24 06:05 RBC 3.08 10^6/uL (3.85-5.65) L 08/18/24 06:05 Hgb 8.60 g/dL (11.27-16.99) L 08/18/24 06:05 Hct 27.7 % (36-47) L 08/18/24 06:05 MCV 89.9 fl (85-98) 08/18/24 06:05 MCH 27.9 pg (27-33) 08/18/24 06:05 MCHC 31.0 g/dL (30-55) 08/18/24 06:05 RDW 18.8 % (12.1-15.1) H 08/18/24 06:05 Plt Count 482 10^3/cmm (157-399) H 08/18/24 06:05 MPV 9.4 fL (7.4-10.4) 08/18/24 06:05 Neut % (Auto) 70.8 % 08/18/24 06:05 Lymph % (Auto) 14.8 % 08/18/24 06:05 Anderson % (Auto) 13.0 % 08/18/24 06:05 Eos % (Auto) 0.3 % 08/18/24 06:05 Baso % (Auto) 0.5 % 08/18/24 06:05 Neut # (Auto) 10.12 10^3/uL (1.8-7.7) H 08/18/24 06:05 Lymph # (Auto) 2.1 10^3/uL (0.8-4.8) 08/18/24 06:05 Anderson # (Auto) 1.9 10^3/uL (0.2-0.9) H 08/18/24 06:05 Eos # (Auto) 0.0 10^3/uL (0.0-0.8) 08/18/24 06:05 Baso # (Auto) 0.1 10^3/uL (0.0-0.1) 08/18/24 06:05 Nucleated RBC % (auto) 0 % 08/18/24 06:05 Nucleated RBCs # 0.0 /100WBC 08/18/24 06:05 Sodium 133 mmol/L (136-145) L 08/18/24 06:05 Potassium 3.9 mmol/L (3.5-5.1) 08/18/24 06:05 Chloride 97 mmol/L (98-107) L 08/18/24 06:05 Carbon Dioxide 24 mmol/L (22-29) 08/18/24 06:05 Anion Gap 15.9 (5-19) 08/18/24 06:05 BUN 5 mg/dL (6-20) L 08/18/24 06:05 Creatinine 0.5 mg/dL (0.5-0.9) 08/18/24 06:05 GFR Calculation 143.0 mL/min (90-130) H 08/18/24 06:05 Glucose 113 mg/dL (65-115) 08/18/24 06:05 Calculated Osmolality 274 mOsm/kg (285-295) L 08/18/24 06:05 Lactic Acid 2.3 mmol/L (0.5-2.2) H 08/15/24 19:52 Lactic Acid (Sepsis) 1.4 mmol/L (0.5-2.2) 08/15/24 22:37 Calcium 8.3 mg/dL (8.5-10.5) L 08/18/24 06:05 Magnesium 1.8 mg/dL (1.7-2.3) 08/16/24 04:45 Total Bilirubin 0.3 mg/dL (0.15-1.2) 08/18/24 06:05 AST 23 U/L (0-32) 08/18/24 06:05 ALT 15 U/L (0-33) 08/18/24 06:05 Alkaline Phosphatase 101 U/L (35-105) 08/18/24 06:05 Total Protein 6.8 g/dL (6.6-8.7) 08/18/24 06:05 Albumin 3.4 g/dL (3.5-5.2) L 08/18/24 06:05 Globulin 3.4 g/dL (1.3-4.6) 08/18/24 06:05 C. difficile (PCR) Negative (Negative) 08/15/24 22:05 Radiology Impressions Abdomen/Pelvis CT 08/17/24 09:54 IMPRESSION: 1. Complex air-fluid collection extends along both sides and posterior to the rectum consistent with an abscess formation. This cannot be differentiated from the adjacent thickened rectal mucosa.A fistulous tract although not directly visualized, cannot be excluded and is likely. 2. Prominent irregular rectal mucosal thickening consistent with the history of colorectal carcinoma. 3. Perirectal and retroperitoneal lymphadenopathy appears stable from the prior study. 4. Colonic constipation is present. 5. Splenomegaly. 6. There is perirectal inflammatory stranding consistent with proctitis. Recent Clincial Data Last Vital Signs Temp 98.0 F 08/18/24 12:00 Pulse 100 08/18/24 12:00 Resp 18 08/18/24 14:20 BP 100/67 08/18/24 12:00 Pulse Ox 98 08/18/24 12:00 O2 Del Method Room Air 08/18/24 12:00 Vital Signs Temp Pulse Resp BP Pulse Ox O2 Del Method 08/18/24 14:20 18 08/18/24 12:00 98.0 F 100 15 100/67 98 Room Air 08/18/24 08:11 17 08/18/24 08:00 98.6 F 96 16 100/57 98 Room Air Intake & Output/Weight 08/16/24 08/17/24 08/18/24 08/19/24 06:59 06:59 06:59 06:59 Intake Total 1303.75 / 1303.75 1989 750 / 750 470 / 470 Output Total 300 / 300 600 / 600 Balance 1003.75 / 1003.75 1390 / 1390 750 / 750 470 / 470 Weight 52.362 kg 50.893 kg 51.437 kg Vitals Last Vital Signs Temp 98.0 F 08/18/24 12:00 Pulse 100 08/18/24 12:00 Resp 18 08/18/24 14:20 BP 100/67 08/18/24 12:00 Pulse Ox 98 08/18/24 12:00 O2 Del Method Room Air 08/18/24 12:00 TS Medications Medications Acetaminophen (Acetaminophen 325 Mg Tablet) 650 mg PO Q6H PRN PRN Reason: Mild/Mod Pain Or Temp >/= 101 Alprazolam (Alprazolam 0.5 Mg Tablet) 0.5 mg PO TID PRN PRN Reason: ANXIETY Piperacillin Sod/Tazobactam (Sod 3.375 gm/ Sodium Chloride) 50 mls @ 12.5 mls/hr IV Q8H [facility]; Protocol Last Admin: 08/18/24 14:10 Dose: 12.5 mls/hr Linezolid (Zyvox Premix) 600 mg in 300 mls @ 300 mls/hr IV Q12H [facility]; Protocol Last Infusion: 08/18/24 14:07 Dose: Infused Lactobacillus Acidophilus (Lactobacillus 1 Tablet) 1 tab PO BID [facility] Last Admin: 08/18/24 08:08 Dose: 1 tab Morphine Sulfate (Morphine 4 Mg/Ml Sdv 1 Ml) 4 mg IVP Q4H PRN PRN Reason: SEVERE PAIN Last Admin: 08/18/24 14:20 Dose: 4 mg Ondansetron HCl (Ondansetron 2 Mg/Ml Sdv 2 Ml) 4 mg IVP Q8H PRN PRN Reason: vomiting, or N/V if npo Discontinued Medications Enoxaparin Sodium (Enoxaparin 40 Mg/0.4 Ml Syringe) 40 mg SUBCUT Q24H [facility] Last Admin: 08/15/24 18:51 Dose: Not Given Sodium Chloride (Sodium Chloride 0.9%) 1,000 mls @ 75 mls/hr IV .[id number] [facility] Last Admin: 08/16/24 06:47 Dose: 75 mls/hr Magnesium Sulfate (Magnesium Sulfate Premix) 2 gm in 50 mls @ 50 mls/hr IV ONCE ONE Stop: 08/16/24 15:08 Last Infusion: 08/16/24 18:11 Dose: Infused Iohexol (Iohexol 350 Mg/Ml 500 Ml Btl (Per Ml)) 0 ml IV ONCE ONE Stop: 08/15/24 20:59 Last Admin: 08/15/24 20:58 Dose: 100 ml Iohexol (Iohexol 350 Mg/Ml 500 Ml Btl (Per Ml)) 0 ml IV ONCE ONE Stop: 08/17/24 15:00 Last Admin: 08/17/24 15:00 Dose: 75 ml Iohexol (Iohexol 350 Mg/Ml 500 Ml Btl (Per Ml)) 0 ml PO ONCE ONE Stop: 08/17/24 15:12 Last Admin: 08/17/24 15:11 Dose: 25 ml Allergies shellfish derived Allergy (Mild, Verified 08/07/24 07:56) nothing noticeable Home Medications CBD gummy 5 mg PO 1XD PRN Pain 05/09/24 [History Confirmed 08/15/24] ferrous sulfate 325 mg (65 mg iron) tablet 325 mg PO TID 05/09/24 [History Confirmed 08/15/24] multivitamin 1 tab PO DAILY 05/09/24 [History Confirmed 08/15/24] amoxicillin 875 mg-potassium clavulanate 125 mg tablet 1 tab PO BID 10 days #20 tabs 08/08/24 [Rx Confirmed 08/15/24] docusate sodium 100 mg capsule (Colace) 100 mg PO BID #14 caps 08/08/24 [Rx Confirmed 08/15/24] oxycodone-acetaminophen 10 mg-325 mg tablet (Percocet) 1 tab PO Q6H PRN pain #28 tabs 08/08/24 [Rx Confirmed 08/15/24] lorazepam 1 mg tablet 0.5 - 1 mg (0.5 - 1 x 1 mg) PO Q6H PRN severe nausea #30 tabs 08/17/24 [Rx] ondansetron HCl 4 mg tablet 4 mg PO Q6H PRN nausea and vomiting #30 tabs 08/17/24 [Rx] prochlorperazine maleate 10 mg tablet (Compazine) 10 mg PO Q4H PRN mild nausea #30 tabs 08/17/24 [Rx] Discharge Plan Discharge Patient Disposition: Home Condition: Stable Prescriptions: New ciprofloxacin HCl 500 mg tablet 250 mg PO BID Qty: 14 0RF metronidazole 500 mg tablet 500 mg PO Q8H 7 Days Qty: 21 0RF Continued multivitamin Tablet 1 tab PO DAILY CBD gummy gum 5 mg PO 1XD PRN (Reason: Pain) oxycodone-acetaminophen [Percocet] 10-325 mg tablet 1 tab PO Q6H PRN (Reason: pain) Qty: 28 0RF Rx Instructions: May take half of a tab at a time docusate sodium [Colace] 100 mg capsule 100 mg PO BID Qty: 14 0RF Held ferrous sulfate 325 mg (65 mg iron) tablet 325 mg PO TID Hold Instructions: Resume on 08/23/24. Discontinued amoxicillin-pot clavulanate 875-125 mg tablet 1 tab PO BID 10 Days Qty: 20 0RF No Action ondansetron HCl 4 mg tablet 4 mg PO Q6H PRN (Reason: nausea and vomiting) Qty: 30 3RF prochlorperazine maleate [Compazine] 10 mg tablet 10 mg PO Q4H PRN (Reason: mild nausea) Qty: 30 3RF lorazepam 1 mg tablet 0.5 - 1 mg PO Q6H PRN (Reason: severe nausea) Qty: 30 3RF Referrals: Ritika Bejarano MD [Primary Care Provider] - 08/22/24 7:30 am Raheel Brown DO [Physician] - 2 weeks (We have notified your physician's clinic of the need for a follow-up appointment to be scheduled. If you have not heard from them within the next 2 business days, please call them directly. ) Rex Escalera MD [Hospitalist] - 1 week (We have notified your physician's clinic of the need for a follow-up appointment to be scheduled. If you have not heard from them within the next 2 business days, please call them directly. ) Discharge Diet: GI Soft Patient Instructions: Ciprofloxacin (By mouth), Metronidazole (By mouth) Activity Restrictions/Additional Instructions: Please complete antibiotic course and follow up with surgery and oncology for reassessment in addition to your primary provider. Contact medical provider in case you notice any stool draining from the abscess cavity or any other skin opening. Consider probiotics once you complete antibiotic course. Resume stool softeners once diarrhea subsides. Strive for soft stools without diarrhea. Seek medical attention in case of any worsening or new concerning symptoms. Transfer Attestations Time Spent in Transfer Care: greater than 30 min Quality Metrics Clinical Quality Measures [ No reported AMI, CVA or VTE this stay] Coding Level of Care Code 55276 Total time (in minutes) for Discharge: 50 Diagnoses Perirectal abscess K61.1 Diarrhea R19.7 Malaise R53.81 Leukocytosis D72.829 Hematochezia K92.1 Adenocarcinoma of rectum C20
== END 2024-08-18 18:00 | disposition short-term general hospital (02) | DRG 394 ==
PROVIDERS: Admitting Provider Internal Medicine; PCP Family Medicine; Visit Provider Internal Medicine
DX: K62.89 Other specified diseases of anus and rectum (principal); C20 Malignant neoplasm of rectum; K92.1 Melena; R00.0 Tachycardia, unspecified; D50.0 Iron deficiency anemia secondary to blood loss (chronic); R19.7 Diarrhea, unspecified; Z95.828 Presence of other vascular implants and grafts; Z79.899 Other long term (current) drug therapy
CPT/HCPCS: 36415; 36591; 74177; 80053; 83605; 83735; 85025; 87040; 87045; 87070; 87075; 87077; 87186; 87205; 87427; 87449; 87493; J2020; J2270; J2543; J3475; J7030

== ENCOUNTER 2024-09-05 11:03 | Oncology outpatient (recurring) (ONCR) | payer BC, MEDICAID, SELFPAY ==
[2024-09-05 11:47] LABS: Basophils # 0.1 10^3/uL (0.0-0.1); Basophils % 0.4 %; Eosinophils # 0.1 10^3/uL (0.0-0.8); Eosinophils % 0.5 %; Hematocrit 30.6 % (36-47); Lymphocytes # 2.1 10^3/uL (0.8-4.8); Lymphocytes % 15.4 %; Mean Corpuscular Hemoglobin 27.8 pg (27-33); Mean Corpuscular Volume 89.5 fl (85-98); Mean Platelet Volume 9.9 fL (7.4-10.4); Monocytes # 1.9 10^3/uL (0.2-0.9); Monocytes % 14.1 %; Neutrophils # 9.28 10^3/uL (1.8-7.7); Neutrophils % 69.1 %; Nucleated Red Blood Cells % 0 %; Platelet Count 454 10^3/cmm (157-399); Red Blood Count 3.42 10^6/uL (3.85-5.65); White Blood Count 13.44 10^3/uL (3.29-11.43)
[2024-09-05 11:48] VITALS: BP 96/65; PULSE 103; RESP 16; TEMP 36.3; O2SAT 98
[2024-09-05 12:05] LABS: Alanine Aminotransferase 10 U/L (0-33); Albumin Level 3.5 g/dL (3.5-5.2); Alkaline Phosphatase 85 U/L (35-105); Anion Gap 14.1 (5-19); Aspartate Amino Transferase 12 U/L (0-32); Blood Urea Nitrogen 9 mg/dL (6-20); Calcium 8.7 mg/dL (8.5-10.5); Carbon Dioxide 27 mmol/L (22-29); Chloride 95 mmol/L (98-107); Globulin 3.6 g/dL (1.3-4.6); Glucose 122 mg/dL (65-115); Osmolality Calculated 274 mOsm/kg (285-295); Potassium 4.1 mmol/L (3.5-5.1); Sodium 132 mmol/L (136-145); Total Bilirubin 0.2 mg/dL (0.15-1.2); Total Protein 7.1 g/dL (6.6-8.7)
[2024-09-05] MEDS: sodium chloride 0.9% 1,000 ML 75 ML IV (12:22)
[2024-09-05] MEDS: iron sucrose 200 MG in sodium chloride 0.9% (100 ml) 100 ML 220 MG IV (12:23)
[2024-09-05 14:10] VITALS: BP 104/69; PULSE 84; RESP 16; TEMP 36.3; O2SAT 100
== END 2024-09-22 23:59 | disposition home or self-care (01) ==
LOC: ONCMED 11:04
PROVIDERS: Nurse Practitioner Family; PCP Family Medicine; Visit Provider Internal Medicine Hematology & Oncology
DX: C20 Malignant neoplasm of rectum (principal); D50.0 Iron deficiency anemia secondary to blood loss (chronic); Z79.899 Other long term (current) drug therapy
CPT/HCPCS: 80053; 85025; 96360; 96365; J1756; J7030

== ENCOUNTER 2024-10-18 09:48 | Oncology outpatient (recurring) (ONCR) | payer BC, MEDICAID, SELFPAY ==
--- NOTE | 2024-09-26 13:39 | ONCRAD EPV_ITS ---
Radiation Oncology Established Patient Visit Patient: Aurora Corrales [id number] : 1990 Age: 34 Sex: Female Dictated by: Dr. Kelsie Humphreys Date of Service: 09/26/2024 Referring Physician(s) : Dr. Rex Escalera Diagnosis: C20 - Malignant neoplasm of rectum, Diagnosed 08/14/2024 (Active) Stage X, T3, N2, M0 Radiotherapy to Date: None Current History: Patient returns today after having to undergo a diverting colostomy. 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 She is getting low on her pain medicine and her recent MRI shows rather extensive disease in the entire pelvis. She has not been able to eat or drink very well and she is down to 98 pounds. Current Medications: [CBD gummy 5 mg PO 1XD PRN] docusate sodium (Colace) 100 mg PO BID ferrous sulfate 325 mg PO TID lorazepam 0.5 - 1 mg (0.5 - 1 x 1 mg) PO Q6H PRN multivitamin 1 tab PO DAILY ondansetron HCl 4 mg PO Q6H PRN oxycodone-acetaminophen 10-325 mg (Percocet) 1 tab PO Q6H PRN prochlorperazine maleate (Compazine) 10 mg PO Q4H PRN Allergies: shellfish derived Allergy (Mild, Verified 09/26/24 10:14) nothing noticable Current Complaints / Review of Systems: . Vital Signs: Performed on 09/26/2024 10:18 AM BMI - 15.882 kg/m2 (low), Height - 66 in, Weight - 98.4 lbs, Temperature - 97.8 f, Pulse - 122 /min (high), Respiration - 17 /min, O2 Sat - 100 %, Pain - 8, Fatigue - 0 and BP - 101/ 70 mm(hg). Physical Exam: General: Alert and oriented x 3. No acute distress. HEENT: Normocephalic, atraumatic. Extraocular Movements Intact: Pupils Equal, Round, Reactive to Light . LUNGS respiratory rate is regular nonlabored. HEART: Regular rate and rhythm,. . ABDOMEN: Patient is cachectic with minimal adipose tissue EXTREMITIES: No peripheral edema is identified NEUROLOGIC: She has unable to sit comfortably. She has significant discomfort sitting in the chair. She has a large pillow that she sits on. Finally moved her to the table so that she can lay down. Neurologically her speech and gait are intact. She is alert and orient x 3.. Performance Status: 70 Lab: None pending. Pathology: Primary, c20 - malignant neoplasm of rectum, Diagnosed 08/14/2024 (active) stage x, t3, n2, m0. Imaging: See HPI Impression: Locally advanced rectal cancer with extensive disease in the pelvis and lymph nodes positive to the level of L4. Plan: At this point we will redo the simulation today and make sure that her anatomy has not changed. If everything looks to be about the same we can reuse the plan that had previously been designed and verified and she should be ready to start her treatments tomorrow. Will coordinate subsequently with her chemotherapy. She has had progression of the disease in the sense that the cancer now is extruding annually. Her mother also asked for a handicap placard and that form was filled out and given to her. I have also called a prescription for oxycodone as she is beginning to run out of her other medication. Signed by: 09/26/2024 1:38:47 PM <<Signature on File>> Time spent with patient: 30 CPT Code: CPT Code:
[2024-10-01 08:18] LABS: Basophils # 0.1 10^3/uL (0.0-0.1); Basophils % 0.3 %; Eosinophils # 0.5 10^3/uL (0.0-0.8); Eosinophils % 3.5 %; Hematocrit 28.4 % (36-47); Lymphocytes # 1.8 10^3/uL (0.8-4.8); Lymphocytes % 12.5 %; Mean Corpuscular HGB Conc 30.3 g/dL (30-55); Mean Corpuscular Hemoglobin 26.5 pg (27-33); Mean Corpuscular Volume 87.7 fl (85-98); Mean Platelet Volume 9.1 fL (7.4-10.4); Monocytes # 0.9 10^3/uL (0.2-0.9); Monocytes % 6.2 %; Neutrophils % 76.7 %; Nucleated Red Blood Cells % 0 %; Platelet Count 490 10^3/cmm (157-399); Red Blood Count 3.24 10^6/uL (3.85-5.65); Red Cell Distribution Width 17.8 % (12.1-15.1); White Blood Count 14.48 10^3/uL (3.29-11.43)
[2024-10-01 08:38] LABS: Alanine Aminotransferase < 5 U/L (0-33); Albumin Level 3.2 g/dL (3.5-5.2); Alkaline Phosphatase 68 U/L (35-105); Anion Gap 14.2 (5-19); Aspartate Amino Transferase 10 U/L (0-32); Blood Urea Nitrogen 7 mg/dL (6-20); Calcium 8.8 mg/dL (8.5-10.5); Carbon Dioxide 26 mmol/L (22-29); Chloride 100 mmol/L (98-107); Creatinine Clr Calc Pharmacy 98.3153; Glomerular Filtration Rate 115.9 mL/min (90-130); Glucose 110 mg/dL (65-115); Osmolality Calculated 281 mOsm/kg (285-295); Potassium 4.2 mmol/L (3.5-5.1); Sodium 136 mmol/L (136-145); Total Bilirubin 0.2 mg/dL (0.15-1.2); Total Protein 7.2 g/dL (6.6-8.7)
[2024-10-01] MEDS: alteplase 1 mg/mL SDV 2 mL 2 MG INTRACATH ×2 (11:16→12:39)
[2024-10-01] MEDS: FLUOROURACIL IV (13:22)
[2024-10-01] MEDS: SODIUM CHLORIDE 0.9% IV (13:22)
--- NOTE | 2024-10-02 14:56 | ONCRAD TMN_ITS ---
Radiation Oncology Weekly Treatment Management Patient: Aurora Corrales MR#: [id number] : 1990 Attending Physician: Dr. Kelsie Humphreys Date of Service: 10/02/2024 Fractions: 4 out of 25 Referring Physician(s) : Diagnosis: C20 - Malignant neoplasm of rectum, Diagnosed 08/14/2024 (Active) Stage X, T3, N2, M0 Radiotherapy to date: Course: Rectum 2023, Treatment Site: Rectum 50Gy, Ref. ID: [id number], Energy: 15X, Dose/Fx (cGy): 200, #Fx: , Dose Correction (cGy): 0, Total Dose Delivered (cGy): 800, Start Date: 09/27/2024, Elapsed Days: 5 Reason for visit: The patient is being seen today as part of their regularly scheduled weekly on treatment visits to assess for acute toxicities from radiotherapy. Review of Systems: Patient says that the 1 drainage area is beginning to dry up. She has not developed any new areas. Her pain is now only a 4 out of 10. She is using the 10 mg oxycodone on bad days and uses the 5 mg for days it are not as severe. Vital Signs: Performed on 10/02/2024 2:19 PM BMI - 16.528 kg/m2 (low), Height - 66 in, Weight - 102.4 lbs, Temperature - 97.4 f, Pulse - 115 /min (high), Respiration - 16 /min, O2 Sat - 98 %, Pain - 5, Fatigue - 0 and BP - 102/ 67 mm(hg). Physical Exam: No change on exam Imaging: Radiation therapy imaging related to accurate target localization (i.e. KV, MV and CBCT) was reviewed. Appropriate changes, if any, were made to ensure treatment accuracy. Plan: Will continue with her treatments plan. We did give her some additional supplies for her drainage. 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 Signed by: Dr. Kelsie Humphreys 10/02/2024 2:54:32 PM
[2024-10-08 07:59] LABS: Basophils % 0.3 %; Eosinophils # 0.3 10^3/uL (0.0-0.8); Eosinophils % 2.6 %; Hematocrit 28.8 % (36-47); Lymphocytes # 0.9 10^3/uL (0.8-4.8); Lymphocytes % 8.2 %; Mean Corpuscular HGB Conc 30.2 g/dL (30-55); Mean Corpuscular Hemoglobin 25.7 pg (27-33); Mean Platelet Volume 9.1 fL (7.4-10.4); Monocytes # 0.9 10^3/uL (0.2-0.9); Monocytes % 8.7 %; Neutrophils % 79.4 %; Nucleated Red Blood Cells % 0 %; Platelet Count 445 10^3/cmm (157-399); Red Blood Count 3.39 10^6/uL (3.85-5.65); Red Cell Distribution Width 18.6 % (12.1-15.1); White Blood Count 10.45 10^3/uL (3.29-11.43)
[2024-10-08] MEDS: sodium chloride 0.9% 1,000 ML 999 ML IV (08:17)
[2024-10-08 08:21] LABS: Alanine Aminotransferase 7 U/L (0-33); Albumin Level 3.4 g/dL (3.5-5.2); Alkaline Phosphatase 69 U/L (35-105); Anion Gap 14.8 (5-19); Aspartate Amino Transferase 10 U/L (0-32); Blood Urea Nitrogen 6 mg/dL (6-20); Calcium 9.3 mg/dL (8.5-10.5); Carbon Dioxide 26 mmol/L (22-29); Chloride 96 mmol/L (98-107); Creatinine Clr Calc Pharmacy 98.3153; Globulin 4.5 g/dL (1.3-4.6); Glomerular Filtration Rate 115.9 mL/min (90-130); Glucose 125 mg/dL (65-115); Osmolality Calculated 275 mOsm/kg (285-295); Potassium 3.8 mmol/L (3.5-5.1); Sodium 133 mmol/L (136-145); Total Bilirubin 0.3 mg/dL (0.15-1.2); Total Protein 7.9 g/dL (6.6-8.7)
[2024-10-08] MEDS: SODIUM CHLORIDE 0.9% IV (11:48)
[2024-10-08] MEDS: FLUOROURACIL IV (11:48)
--- NOTE | 2024-10-10 14:50 | ONCRAD TMN_ITS ---
Radiation Oncology Weekly Treatment Management Patient: Antoni Simon> MR#: [id number] : 1990> Attending Physician: Dr. Kelsie Humphreys Date of Service: 10/10/2024 Fractions: 10 out of 25 Referring Physician(s) : Diagnosis: C20 - Malignant neoplasm of rectum, Diagnosed 08/14/2024 (Active) Stage X, T3, N2, M0 Radiotherapy to date: Course: Rectum 2023, Treatment Site: Rectum 50Gy, Ref. ID: [id number], Energy: 15X, Dose/Fx (cGy): 200, #Fx: , Dose Correction (cGy): 0, Total Dose Delivered (cGy): 2,000, Start Date: 09/27/2024, Elapsed Days: 13 Reason for visit: The patient is being seen today as part of their regularly scheduled weekly on treatment visits to assess for acute toxicities from radiotherapy. Review of Systems: She is actually doing better today. She says the drainage is beginning to dry out. She is no longer manually expressing any of the drainage. Her pain is improving as well. 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 Vital Signs: Performed on 10/10/2024 10:10 AM BMI - 16.27 kg/m2 (low), Height - 66 in, Weight - 100.8 lbs, Temperature - 97.5 f, Pulse - 120 /min (high), Respiration - 18 /min, O2 Sat - 99 %, Pain - 1, Fatigue - 0 and BP - 110/ 72 mm(hg). Physical Exam: No changes on exam Imaging: Radiation therapy imaging related to accurate target localization (i.e. KV, MV and CBCT) was reviewed. Appropriate changes, if any, were made to ensure treatment accuracy. Plan: We talked today at length about some different things she can do for the neuropathy. At this point she has had an improvement of her symptoms and the drainage decreasing. Will continue with her treatments as planned.. Signed by: Dr. Kelsie Humphreys 10/10/2024 2:48:56 PM
[2024-10-12] MEDS: sodium chloride 0.9% 1,000 ML 999 ML IV (11:25)
[2024-10-12 12:43] VITALS: BP 97/63; PULSE 96; RESP 16; TEMP 36.3; O2SAT 98
[2024-10-15 07:52] LABS: Basophils # 0.1 10^3/uL (0.0-0.1); Basophils % 0.8 %; Eosinophils # 0.6 10^3/uL (0.0-0.8); Eosinophils % 8.7 %; Hematocrit 31.4 % (36-47); Lymphocytes # 1.1 10^3/uL (0.8-4.8); Lymphocytes % 16.7 %; Mean Corpuscular HGB Conc 29.6 g/dL (30-55); Mean Corpuscular Hemoglobin 25.6 pg (27-33); Mean Corpuscular Volume 86.5 fl (85-98); Mean Platelet Volume 9.4 fL (7.4-10.4); Monocytes # 0.7 10^3/uL (0.2-0.9); Monocytes % 11.4 %; Neutrophils # 3.91 10^3/uL (1.8-7.7); Neutrophils % 61.8 %; Nucleated Red Blood Cells % 0 %; Platelet Count 428 10^3/cmm (157-399); Red Blood Count 3.63 10^6/uL (3.85-5.65); Red Cell Distribution Width 19.9 % (12.1-15.1); White Blood Count 6.33 10^3/uL (3.29-11.43)
[2024-10-15 08:08] LABS: Alanine Aminotransferase 8 U/L (0-33); Albumin Level 3.6 g/dL (3.5-5.2); Alkaline Phosphatase 63 U/L (35-105); Aspartate Amino Transferase 16 U/L (0-32); Blood Urea Nitrogen 7 mg/dL (6-20); Calcium 9.4 mg/dL (8.5-10.5); Carbon Dioxide 26 mmol/L (22-29); Chloride 101 mmol/L (98-107); Creatinine Clr Calc Pharmacy 115.0866; Globulin 4.5 g/dL (1.3-4.6); Glucose 112 mg/dL (65-115); Osmolality Calculated 285 mOsm/kg (285-295); Sodium 138 mmol/L (136-145); Total Bilirubin 0.2 mg/dL (0.15-1.2); Total Protein 8.1 g/dL (6.6-8.7)
[2024-10-15] MEDS: palonosetron 0.25 mg/5 mL SDV IVP (09:42)
[2024-10-15] MEDS: famotidine 20 mg/2 mL INJ IVP (09:48)
[2024-10-15] MEDS: dexamethasone 10 mg/mL INJ IVP (09:51)
[2024-10-15 10:00] VITALS: BP 102/65; PULSE 76; RESP 15; TEMP 36.6; O2SAT 95
[2024-10-15] MEDS: FLUOROURACIL IV (10:02)
[2024-10-15] MEDS: SODIUM CHLORIDE 0.9% IV (10:02)
--- NOTE | 2024-10-15 11:21 | ONCRAD TMN_ITS ---
Radiation Oncology Weekly Treatment Management Patient: Aurora Corrales MR#: [id number] : 1990 Attending Physician: Dr. Kelsie Humphreys Date of Service: 10/15/2024 Fractions: 13 out of 25 Referring Physician(s) : Diagnosis: C20 - Malignant neoplasm of rectum, Diagnosed 08/14/2024 (Active) Stage X, T3, N2, M0 Radiotherapy to date: Course: Rectum 2023, Treatment Site: Rectum 50Gy, Ref. ID: [id number], Energy: 15X, Dose/Fx (cGy): 200, #Fx: , Dose Correction (cGy): 0, Total Dose Delivered (cGy): 2,600, Start Date: 09/27/2024, Elapsed Days: 18 Reason for visit: The patient is being seen today as part of their regularly scheduled weekly on treatment visits to assess for acute toxicities from radiotherapy. Review of Systems: Patient had 1 day this weekend that she was quite fatigued. She basically stayed in bed the whole day. She did not eat or drink much that day. Vital Signs: Performed on 10/15/2024 10:18 AM BMI - 16.141 kg/m2 (low), Height - 66 in, Weight - 100 lbs, Temperature - 97.8 f, Pulse - 110 /min (high), Respiration - 18 /min, O2 Sat - 95 % (low), Pain - 1, Fatigue - 0 and BP - 102/ 65 mm(hg). Physical Exam: No changes on exam Imaging: Radiation therapy imaging related to accurate target localization (i.e. KV, MV and CBCT) was reviewed. Appropriate changes, if any, were made to ensure treatment accuracy. Plan: Will continue with her treatments as planned. I encouraged her to try and catch up with her intake over this week. Signed by: Dr. Kelsie Humphreys 10/15/2024 11:20:09 AM
== END 2024-10-18 23:59 | disposition home or self-care (01) ==
PROVIDERS: Internal Medicine Medical Oncology; Nurse Practitioner Family; PCP Family Medicine; Visit Provider Radiology Radiation Oncology
DX: Z51.0 Encounter for antineoplastic radiation therapy (principal); C20 Malignant neoplasm of rectum; C77.8 Secondary and unspecified malignant neoplasm of lymph nodes of multiple regions
CPT/HCPCS: 36593; 77336; 77386; 80053; 85025; 96360; 96365; 96374; 96375; 96376; 96416; 96523; 99024; 99214; J1100; J2469; J2997; J3490; J7030; J9190

== ENCOUNTER 2024-10-23 10:02 | Oncology outpatient (recurring) (ONCR) | payer BC, MEDICAID, SELFPAY ==
[2024-10-19] MEDS: sodium chloride 0.9% 1,000 ML 999 ML IV (10:33)
[2024-10-19 11:55] VITALS: BP 91/60; PULSE 79; RESP 16; TEMP 36.5; O2SAT 96
[2024-10-22 08:11] LABS: Basophils % 0.4 %; Eosinophils # 0.5 10^3/uL (0.0-0.8); Eosinophils % 5.4 %; Hematocrit 30.5 % (36-47); Lymphocytes # 0.6 10^3/uL (0.8-4.8); Lymphocytes % 6.9 %; Mean Corpuscular HGB Conc 30.2 g/dL (30-55); Mean Corpuscular Hemoglobin 26.5 pg (27-33); Mean Corpuscular Volume 87.9 fl (85-98); Monocytes % 10.8 %; Neutrophils % 75.9 %; Nucleated Red Blood Cells % 0 %; Platelet Count 352 10^3/cmm (157-399); Red Blood Count 3.47 10^6/uL (3.85-5.65); Red Cell Distribution Width 21.1 % (12.1-15.1); White Blood Count 8.96 10^3/uL (3.29-11.43)
[2024-10-22 08:33] LABS: Alanine Aminotransferase 6 U/L (0-33); Albumin Level 3.6 g/dL (3.5-5.2); Alkaline Phosphatase 59 U/L (35-105); Anion Gap 14.1 (5-19); Aspartate Amino Transferase 20 U/L (0-32); Blood Urea Nitrogen 9 mg/dL (6-20); Calcium 9.7 mg/dL (8.5-10.5); Carbon Dioxide 27 mmol/L (22-29); Chloride 97 mmol/L (98-107); Creatinine Clr Calc Pharmacy 115.6655; Ferritin 636 ng/mL (15-150); Globulin 4.5 g/dL (1.3-4.6); Glucose 106 mg/dL (65-115); Iron 31 ug/dL (37-145); Osmolality Calculated 277 mOsm/kg (285-295); Percent Saturation 16.2 % (20-50); Potassium 4.1 mmol/L (3.5-5.1); Sodium 134 mmol/L (136-145); Total Bilirubin 0.2 mg/dL (0.15-1.2); Total Iron Binding Capacity 191 mcg/dl; Total Protein 8.1 g/dL (6.6-8.7); Unsaturated Iron Binding 160 ug/dL (112-347)
[2024-10-22] MEDS: dexamethasone 10 mg/mL INJ IVP (12:03)
[2024-10-22] MEDS: famotidine 20 mg/2 mL INJ IVP (12:05)
[2024-10-22] MEDS: palonosetron 0.25 mg/5 mL SDV IVP (12:07)
[2024-10-22] MEDS: sodium chloride 0.9% 250 ML IV (12:11)
[2024-10-22] MEDS: FLUOROURACIL IV (13:10)
[2024-10-22] MEDS: SODIUM CHLORIDE 0.9% IV (13:10)
--- NOTE | 2024-10-23 10:37 | ONCRAD TMN_ITS ---
Radiation Oncology Weekly Treatment Management Patient: Antoni Simon> MR#: [id number] : 1990> Attending Physician: Dr. Kelsie Humphreys Date of Service: 10/23/2024 Fractions: 20 8 out of 25 with a plan for a boost Referring Physician(s) : Diagnosis: C20 - Malignant neoplasm of rectum, Diagnosed 08/14/2024 (Active) Stage X, T3, N2, M0 Radiotherapy to date: Course: Rectum 2023, Treatment Site: Rectum 50Gy, Ref. ID: [id number], Energy: 15X, Dose/Fx (cGy): 200, #Fx: 25, Dose Correction (cGy): 0, Total Dose Delivered (cGy): 3,600, Start Date: 09/27/2024, End Date: 10/23/2024, Elapsed Days: 26 Reason for visit: The patient is being seen today as part of their regularly scheduled weekly on treatment visits to assess for acute toxicities from radiotherapy. Review of Systems: Patient is doing well. Her pain is about a 5 out of 10 but she did not take her pain medicine this morning. She is gotten back to eating normal foods and is enjoying her salads and nuts Vital Signs: Performed on 10/23/2024 10:15 AM BMI - 162.697 kg/m2 (high), Height - 66 in, Weight - 1008 lbs, Temperature - 97.2 f, Pulse - 97 /min, Respiration - 18 /min, O2 Sat - 97 %, Pain - 5, Fatigue - 0 and BP - 91/ 58 mm(hg)(/low). Physical Exam: No changes on exam Imaging: Radiation therapy imaging related to accurate target localization (i.e. KV, MV and CBCT) was reviewed. Appropriate changes, if any, were made to ensure treatment accuracy. Plan: Will continue with her treatments as planned. We have discussed with medical oncology and the patient and we will go ahead and proceed with a 2-week boost volume once we get finished with the pelvic treatment. She will undergo resimulation prior to that. Signed by: Dr. Kelsie Humphreys 10/23/2024 10:35:59 AM
== END 2024-10-23 23:59 | disposition home or self-care (01) ==
PROVIDERS: Internal Medicine Medical Oncology; PCP Family Medicine; Visit Provider Radiology Radiation Oncology
DX: Z53.9 Procedure and treatment not carried out, unspecified reason (principal)
CPT/HCPCS: 77386; 80053; 82728; 83540; 83550; 85025; 96360; 96375; 96416; 96523; J1100; J2469; J3490; J7030; J7050; J9190

== ENCOUNTER 2024-11-12 08:03 | Oncology outpatient (recurring) (ONCR) | payer BC, MEDICAID, SELFPAY ==
[2024-10-26] MEDS: sodium chloride 0.9% 1,000 ML 999 ML IV (10:08)
[2024-10-26 11:12] VITALS: BP 96/61; PULSE 79; RESP 15; TEMP 36.4; O2SAT 100
[2024-10-29 08:19] LABS: Basophils % 0.3 %; Eosinophils # 0.6 10^3/uL (0.0-0.8); Eosinophils % 8.3 %; Hematocrit 31.1 % (36-47); Lymphocytes # 0.5 10^3/uL (0.8-4.8); Lymphocytes % 7.1 %; Mean Corpuscular HGB Conc 29.9 g/dL (30-55); Mean Corpuscular Hemoglobin 26.5 pg (27-33); Mean Corpuscular Volume 88.6 fl (85-98); Mean Platelet Volume 9.1 fL (7.4-10.4); Monocytes # 0.7 10^3/uL (0.2-0.9); Monocytes % 10.7 %; Neutrophils # 4.87 10^3/uL (1.8-7.7); Neutrophils % 73.1 %; Nucleated Red Blood Cells % 0 %; Platelet Count 330 10^3/cmm (157-399); Red Blood Count 3.51 10^6/uL (3.85-5.65); White Blood Count 6.65 10^3/uL (3.29-11.43)
[2024-10-29 08:43] LABS: Alanine Aminotransferase < 5 U/L (0-33); Albumin Level 3.7 g/dL (3.5-5.2); Alkaline Phosphatase 63 U/L (35-105); Aspartate Amino Transferase 12 U/L (0-32); Blood Urea Nitrogen 9 mg/dL (6-20); Calcium 9.6 mg/dL (8.5-10.5); Carbon Dioxide 30 mmol/L (22-29); Chloride 102 mmol/L (98-107); Creatinine Clr Calc Pharmacy 111.0755; Glucose 94 mg/dL (65-115); Osmolality Calculated 282 mOsm/kg (285-295); Sodium 137 mmol/L (136-145); Total Bilirubin 0.2 mg/dL (0.15-1.2); Total Protein 7.7 g/dL (6.6-8.7)
[2024-10-29] MEDS: palonosetron 0.25 MG in sodium chloride 0.9% 50 ML 187 MG IV (08:45)
[2024-10-29] MEDS: famotidine 20 mg/2 mL INJ IVP (08:49)
[2024-10-29] MEDS: dexamethasone 10 mg/mL INJ IVP (08:53)
[2024-10-29 08:57] VITALS: BP 88/60; PULSE 93; RESP 15; TEMP 36.4; O2SAT 97
[2024-10-29] MEDS: SODIUM CHLORIDE 0.9% IV (09:45)
[2024-10-29] MEDS: FLUOROURACIL IV (09:45)
--- NOTE | 2024-10-30 10:36 | ONCRAD TMN_ITS ---
Radiation Oncology Weekly Treatment Management Patient: Antoni Simon> MR#: [id number] : 1990> Attending Physician: Dr. Kelsie Humphreys Date of Service: 10/30/2024 Fractions: 22 out of 25 with planned boost Referring Physician(s) : Diagnosis: C20 - Malignant neoplasm of rectum, Diagnosed 08/14/2024 (Active) Stage X, T3, N2, M0 Radiotherapy to date: Course: Rectum 2023, Treatment Site: Rectum 50Gy, Ref. ID: [id number], Energy: 15X, Dose/Fx (cGy): 200, #Fx: , Dose Correction (cGy): 0, Total Dose Delivered (cGy): 4,400, Start Date: 09/27/2024, Elapsed Days: 33 Reason for visit: The patient is being seen today as part of their regularly scheduled weekly on treatment visits to assess for acute toxicities from radiotherapy. Review of Systems: Patient continues to have trouble with nausea and vomiting. She had several good days last week. She is also continued to lose weight. She is having trouble getting supplies for ostomy. Vital Signs: Performed on 10/30/2024 10:04 AM BMI - 16.399 kg/m2 (low), Height - 66 in, Weight - 101.6 lbs, Temperature - 97.6 f, Pulse - 92 /min, Respiration - 18 /min, O2 Sat - 99 %, Pain - 2, Fatigue - 3 and BP - 103/ 71 mm(hg). Physical Exam: No changes on exam. Patient now weighs 97 pounds by her scale Imaging: Radiation therapy imaging related to accurate target localization (i.e. KV, MV and CBCT) was reviewed. Appropriate changes, if any, were made to ensure treatment accuracy. Plan: Will continue with her treatments as planned. I encouraged her to add additional shakes with both fat and protein to her diet. Signed by: Dr. Kelsie Humphreys 10/30/2024 10:35:13 AM
[2024-11-01 17:13] VITALS: BP 90/55; PULSE 96; RESP 17; TEMP 36.8; O2SAT 98
[2024-11-12 08:25] LABS: Basophils # 0.1 10^3/uL (0.0-0.1); Eosinophils # 0.5 10^3/uL (0.0-0.8); Eosinophils % 9.1 %; Hematocrit 36.6 % (36-47); Lymphocytes # 0.7 10^3/uL (0.8-4.8); Lymphocytes % 12.8 %; Mean Corpuscular HGB Conc 30.6 g/dL (30-55); Mean Corpuscular Hemoglobin 27.9 pg (27-33); Monocytes # 0.7 10^3/uL (0.2-0.9); Monocytes % 13.6 %; Neutrophils # 3.27 10^3/uL (1.8-7.7); Neutrophils % 63.3 %; Nucleated Red Blood Cells % 0 %; Platelet Count 335 10^3/cmm (157-399); Red Blood Count 4.02 10^6/uL (3.85-5.65); Red Cell Distribution Width 22.5 % (12.1-15.1); White Blood Count 5.16 10^3/uL (3.29-11.43)
[2024-11-12 08:40] LABS: Alanine Aminotransferase 6 U/L (0-33); Albumin Level 4.3 g/dL (3.5-5.2); Alkaline Phosphatase 60 U/L (35-105); Aspartate Amino Transferase 11 U/L (0-32); Blood Urea Nitrogen 14 mg/dL (6-20); Calcium 9.5 mg/dL (8.5-10.5); Carbon Dioxide 25 mmol/L (22-29); Chloride 105 mmol/L (98-107); Creatinine Clr Calc Pharmacy 95.4253; Globulin 3.4 g/dL (1.3-4.6); Glomerular Filtration Rate 115.9 mL/min (90-130); Glucose 102 mg/dL (65-115); Osmolality Calculated 289 mOsm/kg (285-295); Sodium 139 mmol/L (136-145); Total Bilirubin 0.3 mg/dL (0.15-1.2); Total Protein 7.7 g/dL (6.6-8.7)
[2024-11-12] MEDS: dexamethasone 10 mg/mL INJ IVP (09:07)
[2024-11-12] MEDS: palonosetron 0.25 mg/5 mL SDV IVP (09:21)
[2024-11-12] MEDS: famotidine 20 mg/2 mL INJ IVP (09:24)
[2024-11-12] MEDS: SODIUM CHLORIDE 0.9% IV (09:49)
[2024-11-12] MEDS: FLUOROURACIL IV (09:49)
== END 2024-11-12 23:59 | disposition home or self-care (01) ==
PROVIDERS: Internal Medicine Medical Oncology; PCP Family Medicine; Visit Provider Radiology Radiation Oncology
DX: Z51.0 Encounter for antineoplastic radiation therapy (principal); C20 Malignant neoplasm of rectum; Z53.9 Procedure and treatment not carried out, unspecified reason
CPT/HCPCS: 77300; 77301; 77336; 77338; 77386; 80053; 85025; 96360; 96374; 96375; 96416; 96523; 99024; J1100; J2469; J3490; J7030; J9190

== ENCOUNTER 2024-11-19 07:33 | Oncology outpatient (recurring) (ONCR) | payer BC, MEDICAID, SELFPAY ==
--- NOTE | 2024-11-13 10:39 | ONCRAD TMN_ITS ---
Radiation Oncology Weekly Treatment Management, Patient: Antoni Simon> MR#: [id number] : 1990> Attending Physician: Dr. Kelsie Humphreys Date of Service: 11/13/2024 Fractions: 3 out of 5 to the boost Referring Physician(s) : Diagnosis: C20 - Malignant neoplasm of rectum, Diagnosed 08/14/2024 (Active) Stage X, T3, N2, M0 Radiotherapy to date: Course: BV, Treatment Site: RectumBoost, Ref. ID: [id number], Energy: 15X, Dose/Fx (cGy): 180, #Fx: 2 / 5, Dose Correction (cGy): 0, Total Dose Delivered (cGy): 360, Start Date: 11/12/2024, Elapsed Days: 1 Reason for visit: The patient is being seen today as part of their regularly scheduled weekly on treatment visits to assess for acute toxicities from radiotherapy. Review of Systems: Patient is doing better. Her pain is decreasing. She has had no additional drainage. Vital Signs: Performed on 11/13/2024 10:10 AM BMI - 16.044 kg/m2 (low), Height - 66 in, Weight - 99.4 lbs, Temperature - 97.3 f, Pulse - 99 /min, Respiration - 18 /min, O2 Sat - 100 %, Pain - 0, Fatigue - 0 and BP - 99/ 69 mm(hg). Physical Exam: No changes on exam Imaging: Radiation therapy imaging related to accurate target localization (i.e. KV, MV and CBCT) was reviewed. Appropriate changes, if any, were made to ensure treatment accuracy. Plan: Will continue with her treatments as planned Signed by: Dr. Kelsie Humphreys 11/13/2024 10:37:37 AM
[2024-11-16 11:00] VITALS: BP 104/70; PULSE 98; RESP 16; TEMP 36.4; O2SAT 100
[2024-11-19 07:50] LABS: Basophils % 0.5 %; Eosinophils # 0.5 10^3/uL (0.0-0.8); Eosinophils % 6.4 %; Hematocrit 33.5 % (36-47); Lymphocytes # 0.5 10^3/uL (0.8-4.8); Lymphocytes % 7.2 %; Mean Corpuscular HGB Conc 31.9 g/dL (30-55); Mean Corpuscular Hemoglobin 29.2 pg (27-33); Mean Corpuscular Volume 91.5 fl (85-98); Mean Platelet Volume 9.1 fL (7.4-10.4); Monocytes # 0.9 10^3/uL (0.2-0.9); Monocytes % 11.7 %; Neutrophils # 5.51 10^3/uL (1.8-7.7); Neutrophils % 73.9 %; Nucleated Red Blood Cells % 0 %; Platelet Count 231 10^3/cmm (157-399); Red Blood Count 3.66 10^6/uL (3.85-5.65); Red Cell Distribution Width 21.4 % (12.1-15.1); White Blood Count 7.46 10^3/uL (3.29-11.43)
[2024-11-19 08:18] LABS: Carcinoembryonic Antigen 59.3 ng/mL (0.0-4.7)
[2024-11-19 08:29] LABS: Alanine Aminotransferase 9 U/L (0-33); Albumin Level 4.1 g/dL (3.5-5.2); Alkaline Phosphatase 59 U/L (35-105); Anion Gap 15.6 (5-19); Aspartate Amino Transferase 11 U/L (0-32); Blood Urea Nitrogen 8 mg/dL (6-20); Calcium 9.3 mg/dL (8.5-10.5); Carbon Dioxide 25 mmol/L (22-29); Chloride 98 mmol/L (98-107); Creatinine Clr Calc Pharmacy 96.3879; Glomerular Filtration Rate 115.9 mL/min (90-130); Glucose 98 mg/dL (65-115); Osmolality Calculated 278 mOsm/kg (285-295); Potassium 3.6 mmol/L (3.5-5.1); Sodium 135 mmol/L (136-145); Total Bilirubin 0.4 mg/dL (0.15-1.2); Total Protein 7.1 g/dL (6.6-8.7)
--- NOTE | 2024-11-19 09:04 | N.ONRD TS_ITS ---
Radiation Oncology Treatment Summary Patient: Aurora Corrales MR#: [id number] : 1990 Age: 34 Sex: Female Dictated by: Dr. Kelsie Humphreys Date of Service: 11/19/2024 Referring Physician(s) : Diagnosis: C20 - Malignant neoplasm of rectum, Diagnosed 08/14/2024 (Active) Stage X, T3, N2, M0 Radiotherapy to Date: Course: BV, Treatment Site: RectumBoost, Ref. ID: [id number], Energy: 15X, Dose/Fx (cGy): 180, #Fx: 5 / 5, Dose Correction (cGy): 0, Total Dose Delivered (cGy): 900, Start Date: 11/12/2024, End Date: 11/16/2024, Elapsed Days: 4 Course: Rectum 2023, Treatment Site: Rectum 50Gy, Ref. ID: [id number], Energy: 15X, Dose/Fx (cGy): 200, #Fx: 25 / 25, Dose Correction (cGy): 0, Total Dose Delivered (cGy): 5,000, Start Date: 09/27/2024, End Date: 11/05/2024, Elapsed Days: 39 Clinical Summary: The patient tolerated RT well. She was able to complete her treatment without treatment breaks that work planned. She had a decrease in the drainage from the fistulous. Plan: End of treatment today. Continue on the above medication until the skin reaction resolves. Follow up in one month. Signed by: Dr. Kelsie Humphreys>11/19/2024 9:02:48 AM <<Signature on File>>
== END 2024-11-23 23:59 | disposition home or self-care (01) ==
PROVIDERS: Internal Medicine Medical Oncology; PCP Family Medicine; Visit Provider Radiology Radiation Oncology
DX: Z53.9 Procedure and treatment not carried out, unspecified reason; C20 Malignant neoplasm of rectum
CPT/HCPCS: 36591; 77336; 77386; 80053; 82378; 85025; 96523

== ENCOUNTER 2024-12-17 09:30 | Oncology outpatient (recurring) (ONCR) | payer BC, MEDICAID, SELFPAY ==
--- NOTE | 2024-12-14 10:30 | PETR_ITS ---
PROCEDURE INFORMATION: Exam: PET/CT Skull Base to Mid-thigh Exam date and time: 12/14/2024 11:31 AM Age: 34 years old Clinical indication: Condition or disease; Primary cancer: Rectal cancer, iron deficient anemia LABS AND CLINICAL REPORTS: Glucose: 132 mg/dl Treatment strategy for malignancy (PET staging): Restaging (PS) TECHNIQUE: Imaging protocol: Following at least four-hour fasting and following the injection of radiopharmaceutical, low dose CT images were obtained. Then, PET images were obtained. Attenuation corrected images were constructed using the CT scan. Fused images of PET and CT were reviewed. The standardized uptake values (SUV) reported below are maximum values within a region of interest, expressed in gm/ml. Exam includes orbital meatal line to mid-thigh. SUV normalization method: BodyWeight Radiopharmaceutical: 10.74 mCi F-18 FDG (Fluorodeoxyglucose), IV. Time of imaging post radiopharmaceutical administration: 57 minutes Injection site: left ac COMPARISON: PT PET skull to thigh INIT [id number] 05/22/2024, CT abdomen pelvis 08/17/2024 FINDINGS: Tubes, catheters and devices: Port catheter placed via the left subclavian vein terminates in the cavoatrial junction. Brain: Normal physiologic uptake. Pharynx: No abnormal uptake. Larynx: No abnormal uptake. Lungs, pleura and trachea: New 0.6 cm lung nodule in the anterior most inferior aspect of the right lower lobe on axial image 129 with abnormal uptake of 3.4 SUV is suggestive of metastasis. No pleural effusion. Heart: No abnormal uptake. No cardiomegaly. No pericardial effusion. Mediastinal space: No abnormal uptake. Maximum blood pool uptake is 1.7 SUV. Liver: 2 new metastases in the segment 8 measuring 1.2 cm/13.4 SUV and 1 cm/8.9 SUV. Gallbladder and biliary ducts: No abnormal uptake. No calcified gallstones. Pancreas: No abnormal uptake. Spleen: No abnormal uptake. No splenomegaly. Adrenal glands: Intense uptake in bilateral adrenals measuring 10.8 SUV on the left side and 8 SUV on the right side with no significant enlargement is suspicious for adrenal metastasis.. Kidneys and ureters: Normal physiologic uptake. No hydronephrosis. Stomach and bowel: Primary rectal tumor shows no response to treatment measuring 17.5 SUV versus 16.5 SUV on the prior exam. There is new thickening of the right mesorectal fascia contiguous with thickening of the right piriformis muscle extending toward the right scattered notch suggestive of progressive malignant involvement with the highest uptake of 10.6 SUV. No bowel obstruction. The vertebra colostomy from descending colon in the left mid abdomen. Vasculature: No abnormal uptake. Lymph nodes: There are mixed changes. Some metastatic lymphadenopathy shows significant partial response and new calcifications. This includes bulky left external iliac/obturator metastatic mass decreased from 8.4 x 5.1 cm/11.6 SUV to 7 x 4.2 cm/5.1 SUV; left common iliac lymphadenopathy decreased in thickness from 2.9 cm to 2.2 cm and decreased in uptake from 9.1 SUV to 4.3 SUV; right internal iliac lymph node on axial image 249 decreased from 2.2 cm to 1.3 cm. Stable in size right mesorectal lymph node on axial image 244 decreased in uptake from 5.6 SUV to 3.2 SUV. Other lymph nodes demonstrate lack of response as, for example 2 cm left external iliac metastasis on axial image 227 measuring 12.5 SUV, previously 14.1 SUV, and small aortocaval node on axial image 187 measuring 5 SUV, previously 4.2 SUV. There are also new FDG avid lymph nodes representing progressive disease including the left retroperitoneal lymph node on axial image 177 measuring 8.6 SUV, and new indeterminate uptake of 4.5 SUV within stable in size right superficial inguinal lymph node. No FDG avid lymphadenopathy in the neck, chest, axillas and the left groin. Skeleton: No abnormal uptake in the visualized axial and appendicular skeleton. Soft tissues: No abnormal uptake in the visualized head, neck, chest, abdomen, pelvis, and extremities. PET/PET skull to thigh SUBS [id number] IMPRESSION: In comparison with 05/22/2024 there are mixed interval changes with predominantly progressive disease. While some of bulky pelvic metastatic lymphadenopathy responded to treatment, the primary rectal tumor shows no metabolic response, and there is new extensive involvement of the right mesorectal fascia and the right pelvic sidewall. There are 2 new liver metastases, new small adrenal metastases, new small dhaval metastases in the upper retroperitoneum, new small lung metastasis in the right lower lobe.
[2024-12-17 09:49] LABS: Basophils # 0.1 10^3/uL (0.0-0.1); Basophils % 0.5 %; Eosinophils # 0.4 10^3/uL (0.0-0.8); Hematocrit 31.9 % (36-47); Lymphocytes # 0.5 10^3/uL (0.8-4.8); Lymphocytes % 4.6 %; Mean Corpuscular Hemoglobin 28.5 pg (27-33); Mean Corpuscular Volume 89.1 fl (85-98); Mean Platelet Volume 9.3 fL (7.4-10.4); Monocytes # 1.2 10^3/uL (0.2-0.9); Monocytes % 11.4 %; Neutrophils # 8.19 10^3/uL (1.8-7.7); Nucleated Red Blood Cells % 0 %; Platelet Count 355 10^3/cmm (157-399); Red Blood Count 3.58 10^6/uL (3.85-5.65); Red Cell Distribution Width 15.3 % (12.1-15.1); White Blood Count 10.36 10^3/uL (3.29-11.43)
[2024-12-17 10:28] LABS: Carcinoembryonic Antigen 20.9 ng/mL (0.0-4.7)
[2024-12-17 10:38] LABS: Alanine Aminotransferase 9 U/L (0-33); Albumin Level 3.5 g/dL (3.5-5.2); Alkaline Phosphatase 104 U/L (35-105); Anion Gap 18.4 (5-19); Aspartate Amino Transferase 12 U/L (0-32); Blood Urea Nitrogen 8 mg/dL (6-20); Calcium 9.4 mg/dL (8.5-10.5); Carbon Dioxide 24 mmol/L (22-29); Chloride 100 mmol/L (98-107); Creatinine Clr Calc Pharmacy 97.3824; Globulin 3.8 g/dL (1.3-4.6); Glomerular Filtration Rate 115.9 mL/min (90-130); Glucose 114 mg/dL (65-115); Osmolality Calculated 285 mOsm/kg (285-295); Potassium 4.4 mmol/L (3.5-5.1); Sodium 138 mmol/L (136-145); Total Bilirubin 0.2 mg/dL (0.15-1.2); Total Protein 7.3 g/dL (6.6-8.7)
== END 2024-12-21 23:59 | disposition home or self-care (01) ==
PROVIDERS: PCP Family Medicine; Visit Provider Internal Medicine Medical Oncology
DX: C20 Malignant neoplasm of rectum; Z53.9 Procedure and treatment not carried out, unspecified reason
CPT/HCPCS: 36415; 78815; 80053; 82378; 85025; A9552

== ENCOUNTER 2024-12-25 09:25 | Day surgery (SDC) | payer BC, MEDICAID, SELFPAY ==
[2024-12-25] VITALS (9 sets, daily range): BP systolic 91–99; BP diastolic 55–74; PULSE 76–111; RESP 16–18; TEMP 36.2–37.1; O2SAT 98–100
--- NOTE | 2024-12-25 09:29 | SC_ITS ---
WS: [id number] C-arm FL for CVA [id number] REASON FOR EXAM: MEDIPORT FINDINGS: Chemotherapy infusion port over the right chest with trans right subclavian vein infusion catheter with the tip in the distal SVC. No pneumothorax. SC/C-arm FL for CVA [id number] IMPRESSION: Chemotherapy infusion port and catheter placement without abnormality.
--- NOTE | 2024-12-25 09:29 | XRR_ITS ---
PROCEDURE INFORMATION: Exam: XR Chest Exam date and time: 12/25/2024 11:23 AM Age: 34 years old Clinical indication: Device placement; Prior surgery; Surgery date: Post-operative (0-2 days); Surgery type: Postop mediport; HX of colorectal cancer TECHNIQUE: Imaging protocol: Radiologic exam of the chest. Views: 1 view. COMPARISON: CT chest abdpel w/*[id number] 07/31/2024 8:13 AM FINDINGS: Tubes, catheters and devices: Medication port is seen on the right with its tip overlying the SVC. Lungs: Unremarkable. No consolidation. Pleural spaces: Unremarkable. No pleural effusion. No pneumothorax. Heart/Mediastinum: Unremarkable. No cardiomegaly. Bones/joints: Unremarkable. XR/XR chest 1V portable [id number] IMPRESSION: 1. No acute findings.
[2024-12-25] MEDS: sodium chloride 0.9% 1,000 ML 30 ML IV (09:46)
--- NOTE | 2024-12-25 09:54 | ANES.PREANE2 ---
Pre-Anesthetic Assessment Height/Weight: Height 5 ft 6 in Weight 102 lb Temp Pulse Resp BP Pulse Ox O2 Del Method 98.7 F 111 H 18 96/74 98 Room Air 12/25/24 09:32 12/25/24 09:32 12/25/24 09:32 12/25/24 09:32 12/25/24 09:32 12/25/24 09:32 Preop Diagnosis: Rectal cancer requiring port placement Operation Date: 12/25/24 10:30 Proposed Procedures p Portacath Placement 47307, C20(Not Applicable) - Raheel Brown, DO Was Beta Patti taken within 24 hours: N/A Was Clonidine taken within 24 hours: N/A Last intake: Intake Last Liquid Date 12/24/24 Last Liquid Time 23:59 Last Solid Date 12/24/24 Last Solid Time 23:59 Social No alcohol and No tobacco Exam alert, oriented x 3, clear to auscultation bilaterally and regular rate & rhythm Airway Submandibular: within normal limits Cervical ROM: within normal limits Mallampati: Class I Dentition: full Anesthetic Plan ASA status: 3 Anesthesia: MAC Other: No prior issues with anesthesia NPO since yesterday Patient has rectal adenocarcinoma that has now metastasized to the liver. Prior port placement got infected Takes marijuana Gummies but does not smoke On chronic oxycodone for pain control Labs reviewed acceptable for procedure at this time Plan for MAC anesthesia Medications/Allergies Home Medications ?Medication ?Instructions ?Recorded ?Confirmed ?Last Taken ?Type CBD gummy 5 mg PO 1XD PRN Pain 05/09/24 12/25/24 12/24/24 History multivitamin 1 tab PO DAILY 05/09/24 12/25/24 12/24/24 History oxycodone-acetaminophen 10 mg-325 1 tab PO QID PRN pain 30 days #120 10/29/24 12/25/24 12/24/24 Rx mg tablet tabs sulfamethoxazole 800 1 tab PO BID 10 days #20 tabs 12/17/24 12/25/24 12/24/24 Rx mg-trimethoprim 160 mg tablet (Bactrim DS) lorazepam 1 mg tablet 0.5 - 1 mg (0.5 - 1 x 1 mg) PO Q6H 12/19/24 12/25/24 12/24/24 Rx PRN severe nausea #30 tabs ondansetron HCl 4 mg tablet 4 mg PO Q6H PRN nausea and 12/19/24 12/25/24 12/24/24 Rx vomiting #30 tabs prochlorperazine maleate 10 mg 10 mg PO Q4H PRN mild nausea #30 12/19/24 12/25/24 12/24/24 Rx tablet (Compazine) tabs guaifenesin 200 mg tablet 200 mg PO Q4H 12/24/24 12/25/24 12/24/24 History Allergies Allergy/AdvReac Type Severity Reaction Status Date / Time shellfish derived Allergy Mild nothing Verified 12/25/24 08:30 noticeable Current Medications Generic Name Dose Route Start Last Admin Trade Name Freq PRN Reason Stop Dose Admin Sodium Chloride 1,000 mls @ 30 mls/hr 12/25/24 09:30 12/25/24 09:46 Sodium Chloride 0.9% IV 12/26/24 09:29 30 mls/hr .Q24H BIA Administration PFSH Anesthesia Medical History Fistula Colostomy in place Iron deficiency anemia Rectal cancer Surgical History Port-A-Cath in place History of colonoscopy (04/19/24) Family History Other Cancer Stroke Denies family history of Diabetes CAD (coronary artery disease) Chronic kidney disease (CKD) Lung disease Social History Smoking and tobacco/nicotine status: never used tobacco/nicotine Second hand smoke exposure: Yes Alcohol intake: never Substance/Drug Use: never Lives independently: Yes Marital status: Single Data Anesthesia Cardiac Studies: No Data to Display
--- NOTE | 2024-12-25 10:06 | W.PM.OPSUD ---
Surgery/Procedure H&P Update DATE OF PROCEDURE: December 25, 2024 DATE H&P PERFORMED: 12/17/24 H&P UPDATE INFORMATION: I have reviewed H&P completed within last 30 days, I have examined patient prior to procedure and No changes to prior documentation PREOP DIAGNOSIS: Rectal cancer requiring port placement PLANNED PROCEDURE: Operation Date: 12/25/24 10:30 Proposed Procedures p Portacath Placement 64680, C20(Not Applicable) - Raheel Brown DO
[2024-12-25] MEDS: ceFAZolin 2,000 mg SDV 2000 MG IVP (10:36)
[2024-12-25] MEDS: heparin, porcine 1,000 unit/mL INJ 10 mL 10000 UNIT IRRIGATION (11:04)
[2024-12-25] MEDS: lidocaine-epi 2% PF 1:200,000 20 mL SDV XX (11:10)
--- NOTE | 2024-12-25 11:18 | PM.OP ---
Operative Report Date of procedure: December 25, 2024 Surgeon: Raheel Brown DO Brief History: This is a very pleasant 34-year-old female with rectal cancer. She had a previous Mediport on the left side that became exposed. That Mediport was removed and a new Mediport needed to be placed for chemotherapy access. The risks and benefits were explained and documented. Procedure: Preoperative diagnosis: Post-op diagnosis: same Procedure done: Mediport placement Intraoperative interpretation of fluoroscopy Implants: PowerPort Specimens removed/disposition: None Surgeon: Raheel Brown DO Anesthesia: MAC and Local Estimated blood loss (mL): 5 Complications: None apparent Procedure: The patient was taken to the operating room and placed supine on the operating room table. All bony prominences were padded. She was given IV sedation and monitored throughout the case by the anesthesia personnel. SCDs were placed and turned on. The arms were tucked to the side. Patient received Ancef 2 g preoperatively IV. The bilateral chest wall was prepped and draped in usual sterile fashion using chlorhexidine base prep. Sterile drapes were applied. We did procedure pause prior to beginning. Attempts were made to access the left subclavian vein but were unsuccessful. I then moved to the right side. An 18 gauge needle was placed in the right subclavian vein. Dark, nonpulsatile blood was aspirated. A guidewire was placed through the needle centrally toward the atrial/vena caval junction. Fluoroscopy visualized good placement. The needle was removed and the guidewire was clipped to the drape with a hemostat. Further local anesthetic was infiltrated in the soft tissues of the right chest wall and a #15 blade was used to make a horizontal skin incision. A subcutaneous Mediport pocket was created using Bovie cautery, dissecting down through the skin and subcutaneous tissues. Meticulous hemostasis was achieved. The Mediport was sutured in position using 3-0 vicryl suture x2 stitches. A #15 blade was used to make a small skin edgar around the guidewire insertion area. The Mediport tubing was tunneled through the subcutaneous tissues up to the needle insertion location. A dilator with a peel-away sheath was placed over the guidewire and placed centrally. After measuring the Mediport tubing was cut to length so that the tip would end at the atrial/vena caval junction. The inner cannula and the guidewire were removed, leaving the dilator sheath in place. The Mediport was flushed. The tip of the catheter was inserted through the peel-away sheath and the peel-away sheath removed in the standard fashion. The Mediport was accessed with a straight Ramos needle and dark, nonpulsatile blood was aspirated and flushed using heparinized saline to hep-lock the Mediport. Final fluoroscopy visualization showed no kink in the catheter and the tip of the Mediport tubing near the atrial/vena caval junction. There is no obvious pneumothorax. Both skin incisions were thoroughly irrigated and suctioned dry. Meticulous hemostasis noted. The dermis was approximated with 3-0 Vicryl in an interrupted fashion. Skin was closed with Dermabond. Patient was awakened from anesthesia and transferred via her cart to the recovery room in stable condition. All needle, sponge, and instrument counts were correct per the operating personnel x2 counts.
--- NOTE | 2024-12-25 12:30 | ANE.PACU2 ---
Inpatient post-anesthesia follow up: Airway intact: Yes Vital signs: Temperature 97.2 F Pulse Rate 81 Respiratory Rate 16 Blood Pressure 91/57 Pulse Oximetry 99 Oxygen Delivery Me thod Room Air Oxygen Flow Rate Fraction of Inspir ed Oxygen Hydration adequate: Yes Nausea and vomiting: No Pain level: 1 Mental status: Baseline
== END 2024-12-25 12:30 | disposition home or self-care (01) ==
PROVIDERS: PCP Family Medicine; Visit Provider Surgery
PROC: (CPT 36561; principal; 2024-12-25 10:30)
DX: C20 Malignant neoplasm of rectum (principal); Z79.899 Other long term (current) drug therapy
CPT/HCPCS: 36561; 71045; 77001; C1788; J0690; J1100; J1644; J1885; J2250; J2405; J2704; J3010; J7030

== ENCOUNTER 2025-02-19 07:46 | Oncology outpatient (recurring) (ONCR) | payer BC, MEDICAID, SELFPAY ==
[2025-02-04 10:17] LABS: Basophils # 0.1 10^3/uL (0.0-0.1); Basophils % 0.7 %; Eosinophils # 0.3 10^3/uL (0.0-0.8); Eosinophils % 3.2 %; Lymphocytes # 0.9 10^3/uL (0.8-4.8); Lymphocytes % 10.7 %; Mean Corpuscular HGB Conc 31.1 g/dL (30-55); Mean Corpuscular Hemoglobin 27.1 pg (27-33); Mean Platelet Volume 8.9 fL (7.4-10.4); Monocytes # 0.8 10^3/uL (0.2-0.9); Monocytes % 9.1 %; Neutrophils # 6.64 10^3/uL (1.8-7.7); Neutrophils % 75.8 %; Nucleated Red Blood Cells % 0 %; Platelet Count 443 10^3/cmm (157-399); Red Blood Count 4.14 10^6/uL (3.85-5.65); Red Cell Distribution Width 14.9 % (12.1-15.1); White Blood Count 8.76 10^3/uL (3.29-11.43)
[2025-02-04 10:36] LABS: Alanine Aminotransferase < 5 U/L (0-33); Albumin Level 3.9 g/dL (3.5-5.2); Alkaline Phosphatase 64 U/L (35-105); Aspartate Amino Transferase 10 U/L (0-32); Blood Urea Nitrogen 8 mg/dL (6-20); Calcium 9.6 mg/dL (8.5-10.5); Carbon Dioxide 27 mmol/L (22-29); Chloride 101 mmol/L (98-107); Globulin 3.6 g/dL (1.3-4.6); Glomerular Filtration Rate 142.1 mL/min (90-130); Glucose 88 mg/dL (65-115); Osmolality Calculated 286 mOsm/kg (285-295); Sodium 139 mmol/L (136-145); Total Bilirubin 0.2 mg/dL (0.15-1.2); Total Protein 7.5 g/dL (6.6-8.7)
[2025-02-04 10:38] LABS: Anion Gap 15.1 (5-19); Potassium 4.1 mmol/L (3.5-5.1)
--- NOTE | 2025-02-04 12:07 | ONCRAD EPV_ITS ---
Radiation Oncology Established Patient Visit Patient: Antoni Simon [id number] : 1990> Age: 35> Sex: Female> Dictated by: Chris Bui Date of Service: 02/04/2025 Referring Physician(s) : Maged Onc Diagnosis: C20 - Malignant neoplasm of rectum, Diagnosed 08/14/2024 (Active) Stage X, T3, N2, M0 Radiotherapy to Date: Course: BV, Treatment Site: RectumBoost, Ref. ID: [id number], Energy: 15X, Dose/Fx (cGy): 180, #Fx: 5 / 5, Dose Correction (cGy): 0, Total Dose Delivered (cGy): 900, Start Date: 11/12/2024, End Date: 11/16/2024, Elapsed Days: 4 Treatment Site: Rectum 50Gy, Ref. ID: [id number], Energy: 15X, Dose/Fx (cGy): 200, #Fx: 25 / 25, Dose Correction (cGy): 0, Total Dose Delivered (cGy): 5,000, Start Date: 09/27/2024, End Date: 11/05/2024, Elapsed Days: 39 Current History: This is a pleasant 34-year-old female with persistent and metastatic disease of colorectal origin.. She was treated with combined chemoradiation and completed treatment on 11/16/2024. Recent PET scan at 12/14/2024 showed progressive bulky pelvic lymph nodes as well as disease in the right mesorectal fascia and right pelvic sidewall. She also had 2 metastatic lesions in the liver, adrenal mets, and right lower lobe lung met as well as upper retroperitoneum. She starts FOLFIRI tomorrow. Current Medications: [CBD gummy 5 mg PO 1XD PRN] guaifenesin 200 mg PO Q4H lorazepam 0.5 - 1 mg (0.5 - 1 x 1 mg) PO Q6H PRN multivitamin 1 tab PO DAILY ondansetron HCl 4 mg PO Q6H PRN oxycodone-acetaminophen 10-325 mg 1 tab PO QID PRN 30 days prochlorperazine maleate (Compazine) 10 mg PO Q4H PRN sulfamethoxazole-trimethoprim 800-160 mg (Bactrim DS) 1 tab PO BID 10 days Allergies: shellfish derived Allergy Current Complaints / Review of Systems: . As above Vital Signs: Performed on 02/04/2025 10:14 AM BMI - 16.334 kg/m2 (low), Height - 66 in, Weight - 101.2 lbs, Temperature - 97.1 f, Pulse - 101 /min (high), Respiration - 18 /min, O2 Sat - 99 %, Pain - 3, Fatigue - 0 and BP - 87/ 61 mm(hg)(low). Physical Exam: General: Alert and oriented x 3. No acute distress. HEENT: Normocephalic, atraumatic. Extraocular Movements Intact: Pupils Equal, Round, Reactive to Light and Accommodation: Sclerae anicteric. Oral cavity is clear without lesions, masses or ulcers. NECK: Supple without supraclavicular or jugular lymphadenopathy. LUNGS: Clear to auscultation bilaterally without rales, rhonchi or wheeze. HEART: Regular rate and rhythm, normal S1 and S2 without murmur, gallop or rub. MUSCULOSKELETAL: No tenderness or percussion pain over the axial skeleton, scapulae or pelvis. ABDOMEN: Soft, nontender, nondistended without masses or organomegaly. Colostomy patent. EXTREMITIES: No peripheral edema is identified. Limited motor and sensory examination are grossly intact and symmetric bilaterally. NEUROLOGIC: Cranial nerves II ???XII are grossly intact. Normal sensation, strength 5/5 in all extremities, normal gait, no ataxia. Performance Status: KPS 80 Lab: None pending. Pathology: Primary, c20 - malignant neoplasm of rectum, Diagnosed 08/14/2024 (active) stage x, t3, n2, m0. Imaging: See HPI Impression: Persistent and progressive adenocarcinoma of the rectum now with metastatic disease in the liver, adrenals, LN???s and lung. PLAN: Full ferry chemotherapy starting tomorrow RTC in 3 months or sooner if need be Signed by: 02/04/2025 12:05:59 PM <<Signature on File>> Time spent with patient/mom: 30 minutes CPT Code: * CPT Code: *
[2025-02-05] MEDS: dextrose 5% 250 ML 75 ML IV (10:15)
[2025-02-05] MEDS: palonosetron 0.25 mg/5 mL SDV IVP (10:16)
[2025-02-05] MEDS: dexamethasone 4 mg/mL INJ 5 mL 12 MG IVP (10:21)
[2025-02-05] MEDS: atropine 1 mg/mL SDV 1 mL 0.4 MG IV (10:28)
[2025-02-05] MEDS: DEXTROSE 5% IV (11:15)
[2025-02-05] MEDS: irinotecan 200 MG, irinotecan 70 MG in dextrose 5% 250 ML 175.67 MG IV (11:15)
[2025-02-05] MEDS: LEUCOVORIN IV (11:15)
[2025-02-05] MEDS: fluorouraciL 50 mg/ml MDV 100 mL 600 MG IVP (13:02)
[2025-02-05] MEDS: fluorouraciL 3,600 MG, elastomeric pump 1 PUMP in sodium chloride 0.9% (100 ml) 20 ML IV (13:12)
[2025-02-05 13:18] VITALS: BP 96/58; PULSE 77; RESP 16; TEMP 36.6; O2SAT 98
[2025-02-12 08:05] LABS: Basophils % 0.7 %; Eosinophils # 0.4 10^3/uL (0.0-0.8); Lymphocytes # 0.7 10^3/uL (0.8-4.8); Lymphocytes % 11.7 %; Mean Corpuscular HGB Conc 31.5 g/dL (30-55); Mean Corpuscular Hemoglobin 26.9 pg (27-33); Mean Corpuscular Volume 85.4 fl (85-98); Mean Platelet Volume 9.2 fL (7.4-10.4); Monocytes # 0.4 10^3/uL (0.2-0.9); Monocytes % 6.5 %; Neutrophils # 4.44 10^3/uL (1.8-7.7); Neutrophils % 74.6 %; Nucleated Red Blood Cells % 0 %; Platelet Count 323 10^3/cmm (157-399); Red Blood Count 3.98 10^6/uL (3.85-5.65); Red Cell Distribution Width 14.6 % (12.1-15.1); White Blood Count 5.96 10^3/uL (3.29-11.43)
[2025-02-12 08:31] LABS: Carcinoembryonic Antigen 33.6 ng/mL (0.0-4.7)
[2025-02-12 08:42] LABS: Alanine Aminotransferase < 5 U/L (0-33); Alkaline Phosphatase 63 U/L (35-105); Aspartate Amino Transferase 9 U/L (0-32); Blood Urea Nitrogen 11 mg/dL (6-20); Calcium 9.4 mg/dL (8.5-10.5); Carbon Dioxide 27 mmol/L (22-29); Chloride 102 mmol/L (98-107); Creatinine Clr Calc Pharmacy 116.1002; Globulin 3.3 g/dL (1.3-4.6); Glomerular Filtration Rate 142.1 mL/min (90-130); Glucose 98 mg/dL (65-115); Osmolality Calculated 289 mOsm/kg (285-295); Sodium 140 mmol/L (136-145); Total Bilirubin 0.2 mg/dL (0.15-1.2); Total Protein 7.3 g/dL (6.6-8.7)
[2025-02-12 09:33] LABS: Bilirubin Urine Negative (Negative); Blood Urine Trace (Negative); Glucose Urine UA Negative (Normal); Ketones Urine Negative (Negative); Leukocyte Esterase Urine Trace (Negative); Nitrate Urine Negative (Negative); Protein Urine Trace (Negative); Specific Gravity, Urine 1.026 (1.005-1.030); Urine Appearance Clear (CLEAR); Urine Color Yellow (Yellow); Urobilinogen Urine 0.2 mg/dL (Negative)
[2025-02-12 09:39] LABS: Add Urine Microscopic? YES
[2025-02-12 10:00] LABS: RBC Urine 0-4 /hpf (0-2); Squamous Epithelial Cell Urine 0-4 /hpf (0-5); UA Manual Slide Review YES; UA Slide Review UA Slide Review Perf
[2025-02-12 10:01] LABS: Hyaline Casts Urine 0-4 /lpf
[2025-02-19 08:01] LABS: Basophils # 0.1 10^3/uL (0.0-0.1); Basophils % 0.9 %; Eosinophils # 0.4 10^3/uL (0.0-0.8); Eosinophils % 6.9 %; Hematocrit 33.7 % (36-47); Lymphocytes # 0.7 10^3/uL (0.8-4.8); Lymphocytes % 12.7 %; Mean Corpuscular HGB Conc 31.2 g/dL (30-55); Mean Corpuscular Volume 86.6 fl (85-98); Mean Platelet Volume 8.9 fL (7.4-10.4); Monocytes # 0.6 10^3/uL (0.2-0.9); Monocytes % 11.2 %; Neutrophils # 3.87 10^3/uL (1.8-7.7); Neutrophils % 67.9 %; Nucleated Red Blood Cells % 0 %; Platelet Count 283 10^3/cmm (157-399); Red Blood Count 3.89 10^6/uL (3.85-5.65); Red Cell Distribution Width 16.3 % (12.1-15.1); White Blood Count 5.69 10^3/uL (3.29-11.43)
[2025-02-19 08:28] LABS: Carcinoembryonic Antigen 32.9 ng/mL (0.0-4.7)
[2025-02-19 08:39] LABS: Alanine Aminotransferase < 5 U/L (0-33); Albumin Level 3.8 g/dL (3.5-5.2); Alkaline Phosphatase 68 U/L (35-105); Anion Gap 12.7 (5-19); Aspartate Amino Transferase 10 U/L (0-32); Blood Urea Nitrogen 8 mg/dL (6-20); Calcium 9.2 mg/dL (8.5-10.5); Carbon Dioxide 27 mmol/L (22-29); Chloride 101 mmol/L (98-107); Creatinine Clr Calc Pharmacy 83.4899; Globulin 3.2 g/dL (1.3-4.6); Glomerular Filtration Rate 96.4 mL/min (90-130); Glucose 88 mg/dL (65-115); Osmolality Calculated 282 mOsm/kg (285-295); Potassium 3.7 mmol/L (3.5-5.1); Sodium 137 mmol/L (136-145); Total Bilirubin 0.2 mg/dL (0.15-1.2)
[2025-02-19] MEDS: dextrose 5% 250 ML 75 ML IV (09:32)
[2025-02-19] MEDS: aprepitant 130 mg/18 ml SDV IVP (09:33)
[2025-02-19] MEDS: dexamethasone 4 mg/mL INJ 5 mL 12 MG IVP (09:41)
[2025-02-19] MEDS: palonosetron 0.25 mg/5 mL SDV IVP (09:47)
[2025-02-19] MEDS: atropine 1 mg/mL SDV 1 mL 0.4 MG IV (10:30)
[2025-02-19] MEDS: LEUCOVORIN IV (10:55)
[2025-02-19] MEDS: DEXTROSE 5% IV (10:55)
[2025-02-19] MEDS: irinotecan 200 MG, irinotecan 70 MG in dextrose 5% 250 ML 175.67 MG IV (10:56)
[2025-02-19] MEDS: fluorouraciL 50 mg/ml MDV 100 mL 600 MG IVP (12:41)
[2025-02-19] MEDS: fluorouraciL 3,600 MG, elastomeric pump 1 PUMP in sodium chloride 0.9% (100 ml) 20 ML IV (12:50)
[2025-02-19 12:56] VITALS: BP 98/58; PULSE 67; TEMP 36.5; O2SAT 98
== END 2025-02-20 23:59 | disposition home or self-care (01) ==
PROVIDERS: Nurse Practitioner Family; PCP Family Medicine; Visit Provider Internal Medicine Medical Oncology
DX: Z53.9 Procedure and treatment not carried out, unspecified reason; Z51.11 Encounter for antineoplastic chemotherapy; C20 Malignant neoplasm of rectum; Z79.631 Long term (current) use of antimetabolite agent; Z79.52 Long term (current) use of systemic steroids; D50.0 Iron deficiency anemia secondary to blood loss (chronic)
CPT/HCPCS: 36415; 36591; 80053; 81001; 82378; 85025; 96365; 96368; 96375; 96411; 96413; 96415; 96416; 96523; J0185; J0461; J0640; J1100; J2469; J7060; J9190; J9206

== ENCOUNTER 2025-03-21 14:00 | Oncology outpatient (recurring) (ONCR) | payer BC, MEDICAID, SELFPAY ==
[2025-02-21] MEDS: sodium chloride 0.9% 1,000 ML 999 ML IV (11:43)
[2025-02-21 12:49] VITALS: BP 90/57; PULSE 70; RESP 17; TEMP 36.2; O2SAT 93
[2025-03-05 08:19] LABS: Basophils % 0.5 %; Eosinophils # 0.4 10^3/uL (0.0-0.8); Hematocrit 36.1 % (36-47); Lymphocytes # 0.8 10^3/uL (0.8-4.8); Lymphocytes % 10.1 %; Mean Corpuscular HGB Conc 31.6 g/dL (30-55); Mean Corpuscular Hemoglobin 27.7 pg (27-33); Mean Corpuscular Volume 87.6 fl (85-98); Mean Platelet Volume 8.9 fL (7.4-10.4); Monocytes # 0.9 10^3/uL (0.2-0.9); Neutrophils # 5.33 10^3/uL (1.8-7.7); Nucleated Red Blood Cells % 0 %; Platelet Count 313 10^3/cmm (157-399); Red Blood Count 4.12 10^6/uL (3.85-5.65); Red Cell Distribution Width 17.6 % (12.1-15.1); White Blood Count 7.41 10^3/uL (3.29-11.43)
[2025-03-05 08:58] LABS: Carcinoembryonic Antigen 38.9 ng/mL (0.0-4.7)
[2025-03-05 09:12] LABS: Alanine Aminotransferase 6 U/L (0-33); Alkaline Phosphatase 77 U/L (35-105); Anion Gap 16.7 (5-19); Aspartate Amino Transferase 14 U/L (0-32); Blood Urea Nitrogen 13 mg/dL (6-20); Calcium 9.4 mg/dL (8.5-10.5); Carbon Dioxide 26 mmol/L (22-29); Chloride 100 mmol/L (98-107); Creatinine Clr Calc Pharmacy 98.3607; Globulin 3.3 g/dL (1.3-4.6); Glomerular Filtration Rate 115.1 mL/min (90-130); Glucose 119 mg/dL (65-115); Osmolality Calculated 287 mOsm/kg (285-295); Potassium 4.7 mmol/L (3.5-5.1); Sodium 138 mmol/L (136-145); Total Bilirubin 0.2 mg/dL (0.15-1.2); Total Protein 7.3 g/dL (6.6-8.7)
[2025-03-05] MEDS: dextrose 5% 250 ML 75 ML IV (09:54)
[2025-03-05] MEDS: aprepitant 130 mg/18 ml SDV IVP (09:57)
[2025-03-05] MEDS: dexamethasone 4 mg/mL INJ 5 mL 12 MG IVP (10:03)
[2025-03-05] MEDS: palonosetron 0.25 mg/5 mL SDV IVP (10:09)
[2025-03-05] MEDS: atropine 1 mg/mL SDV 1 mL 0.4 MG IV (10:40)
[2025-03-05] MEDS: irinotecan 200 MG, irinotecan 70 MG in dextrose 5% 250 ML 175.67 MG IV (10:50)
[2025-03-05] MEDS: LEUCOVORIN IV (10:50)
[2025-03-05] MEDS: DEXTROSE 5% IV (10:50)
[2025-03-05 11:43] LABS: Bilirubin Urine Negative (Negative); Blood Urine Non-haemolysed trace (Negative); Glucose Urine UA Negative (Normal); Ketones Urine Negative (Negative); Leukocyte Esterase Urine Negative (Negative); Nitrate Urine Negative (Negative); Protein Urine 1+ (Negative); Urine Appearance Clear (CLEAR); Urine Color Yellow (Yellow)
[2025-03-05 11:48] LABS: Add Urine Microscopic? YES; Bacteria Urine None Seen /hpf; Hyaline Casts Urine 4.52 /lpf; RBC Urine 0-2 /hpf (0-2); Squamous Epithelial Cell Urine 0-5 /hpf (0-5); WBC Urine 21-50 /hpf (0-5)
[2025-03-05 12:09] LABS: Add Urine Culture? No; Specific Gravity, Urine 1.034 (1.005-1.030)
[2025-03-05] MEDS: fluorouraciL 50 mg/ml MDV 100 mL 604 MG IVP (12:50)
[2025-03-05] MEDS: fluorouraciL 3,600 MG, elastomeric pump 1 PUMP in sodium chloride 0.9% (100 ml) 20 ML IV (12:58)
[2025-03-05 13:03] VITALS: BP 99/64; PULSE 73; RESP 16; TEMP 36.3; O2SAT 99
[2025-03-07 11:11] VITALS: BP 104/72; PULSE 92; RESP 16; TEMP 35.7; O2SAT 98
[2025-03-07] MEDS: sodium chloride 0.9% 1,000 ML 999 ML IV (11:26)
[2025-03-19 08:01] LABS: Basophils % 0.5 %; Eosinophils # 0.3 10^3/uL (0.0-0.8); Eosinophils % 4.6 %; Hematocrit 36.6 % (36-47); Lymphocytes # 0.9 10^3/uL (0.8-4.8); Lymphocytes % 15.2 %; Mean Corpuscular HGB Conc 31.1 g/dL (30-55); Mean Corpuscular Hemoglobin 27.6 pg (27-33); Mean Corpuscular Volume 88.6 fl (85-98); Mean Platelet Volume 9.4 fL (7.4-10.4); Monocytes # 0.7 10^3/uL (0.2-0.9); Monocytes % 12.3 %; Neutrophils # 3.97 10^3/uL (1.8-7.7); Neutrophils % 67.1 %; Nucleated Red Blood Cells % 0 %; Platelet Count 285 10^3/cmm (157-399); Red Blood Count 4.13 10^6/uL (3.85-5.65); Red Cell Distribution Width 17.2 % (12.1-15.1); White Blood Count 5.92 10^3/uL (3.29-11.43)
[2025-03-19 08:19] LABS: Alanine Aminotransferase 6 U/L (0-33); Alkaline Phosphatase 76 U/L (35-105); Anion Gap 15.2 (5-19); Aspartate Amino Transferase 12 U/L (0-32); Blood Urea Nitrogen 13 mg/dL (6-20); Calcium 9.8 mg/dL (8.5-10.5); Carbon Dioxide 27 mmol/L (22-29); Chloride 100 mmol/L (98-107); Creatinine Clr Calc Pharmacy 83.4899; Globulin 3.2 g/dL (1.3-4.6); Glomerular Filtration Rate 96.4 mL/min (90-130); Glucose 93 mg/dL (65-115); Osmolality Calculated 286 mOsm/kg (285-295); Potassium 4.2 mmol/L (3.5-5.1); Sodium 138 mmol/L (136-145); Total Bilirubin 0.2 mg/dL (0.15-1.2); Total Protein 7.2 g/dL (6.6-8.7)
[2025-03-19] MEDS: aprepitant 130 mg/18 ml SDV IVP (09:13)
[2025-03-19] MEDS: dextrose 5% 250 ML 75 ML IV (09:13)
[2025-03-19] MEDS: palonosetron 0.25 mg/5 mL SDV IVP (09:21)
[2025-03-19] MEDS: dexamethasone 4 mg/mL INJ 5 mL 12 MG IVP (09:24)
[2025-03-19] MEDS: atropine 1 mg/mL SDV 1 mL 0.4 MG IV (09:52)
[2025-03-19] MEDS: irinotecan 200 MG, irinotecan 70 MG in dextrose 5% 250 ML 175.67 MG IV (09:55)
[2025-03-19] MEDS: DEXTROSE 5% IV (09:56)
[2025-03-19] MEDS: LEUCOVORIN IV (09:56)
[2025-03-19 11:16] LABS: Bilirubin Urine Negative (Negative); Blood Urine 1+ (Negative); Glucose Urine UA Negative (Normal); Ketones Urine Negative (Negative); Leukocyte Esterase Urine 2+ (Negative); Nitrate Urine Negative (Negative); Protein Urine 1+ (Negative); Urine Appearance Clear (CLEAR); Urine Color Yellow (Yellow); Urobilinogen Urine 0.2 mg/dL (Negative)
[2025-03-19 11:18] LABS: Add Urine Microscopic? YES; Bacteria Urine None Seen /hpf; Hyaline Casts Urine 4.11 /lpf; Squamous Epithelial Cell Urine 0-5 /hpf (0-5); WBC Urine 51-100 /hpf (0-5)
[2025-03-19 11:37] LABS: Add Urine Culture? Yes
[2025-03-19] MEDS: fluorouraciL 50 mg/ml MDV 100 mL 600 MG IVP (11:40)
[2025-03-19] MEDS: fluorouraciL 3,600 MG, elastomeric pump 1 PUMP in sodium chloride 0.9% (100 ml) 20 ML IV (11:45)
[2025-03-19 12:00] VITALS: BP 91/60; PULSE 90; RESP 16; TEMP 36.6; O2SAT 98
[2025-03-21] MEDS: sodium chloride 0.9% 1,000 ML 999 ML IV (12:00)
[2025-03-21 12:55] VITALS: BP 110/78; PULSE 78; RESP 18; TEMP 36.6; O2SAT 97
== END 2025-03-23 23:59 | disposition home or self-care (01) ==
PROVIDERS: Internal Medicine Medical Oncology; Nurse Practitioner Family; PCP Family Medicine; Visit Provider Internal Medicine
DX: Z53.9 Procedure and treatment not carried out, unspecified reason; C20 Malignant neoplasm of rectum; Z79.899 Other long term (current) drug therapy
CPT/HCPCS: 80053; 81001; 82378; 85025; 87086; 96360; 96368; 96375; 96411; 96413; 96415; 96416; 96523; J0185; J0461; J0640; J1100; J2469; J7030; J7060; J9190; J9206

== ENCOUNTER 2025-04-17 11:00 | Oncology outpatient (recurring) (ONCR) | payer BC, MEDICAID, SELFPAY ==
--- NOTE | 2025-03-29 07:30 | CTR_ITS ---
PROCEDURE INFORMATION: Exam: CT Chest With Contrast; Diagnostic Exam date and time: 03/29/2025 7:43 AM Age: 35 years old Clinical indication: Condition or disease; Other: Restaging - HX of rectal CA w/ liver and lung mets; Follow-up oncological assessment TECHNIQUE: Imaging protocol: Diagnostic computed tomography of the chest with contrast. Radiation optimization: All CT scans at this facility use at least one of these dose optimization techniques: automated exposure control; mA and/or kV adjustment per patient size (includes targeted exams where dose is matched to clinical indication); or iterative reconstruction. Contrast material: OMNI 350; Contrast volume: 80 ml; Contrast route: INTRAVENOUS (IV); COMPARISON: PT PET skull to thigh SUBS [id number] 12/14/2024 11:31 AM RADIATION DOSE METRICS: Total DLP (mGy-cm): 215.54 FINDINGS: Lungs: No consolidation. Slightly increased size of the previously noted nodule in the anterior aspect of the right lung base in the right lower lobe now measuring 7 mm (previously 6 mm). There are a few new nodules in the right lung including a 5 mm nodule in the right lower lobe series 4, image 51 and a 5 mm nodule in the right middle lobe series 4 image 34. There is also a 4 mm nodule in the right upper lobe series 4, image 25. There are also a few new nodules in the left lung including a 3 mm nodule series 5, image 14, an additional 3 mm nodule series 5, image 26, and a 4 mm nodule series 5, image 48. Pleural spaces: Unremarkable. No pneumothorax. No pleural effusion. Heart: Unremarkable. No cardiomegaly. No pericardial effusion. Lymph nodes: Unremarkable. No enlarged lymph nodes. Vasculature: Unremarkable. No aortic aneurysm. Liver: Enlarging liver metastases in the right hepatic lobe with 2 dominant masses measuring 4.5 cm and 3.9 cm respectively. Bones/joints: Unremarkable. No acute fracture. Soft tissues: Unremarkable. CT/CT chest w con* [id number] IMPRESSION: 1. Worsening metastatic disease in the lungs with several new and enlarging nodules in both lungs. 2. Worsening liver metastases with 2 dominant enlarging liver masses.
[2025-03-29] MEDS: iohexol 350 mg/mL 500 mL Btl (per mL) IV (07:32)
[2025-04-01 08:34] LABS: Basophils % 0.7 %; Eosinophils # 0.3 10^3/uL (0.0-0.8); Eosinophils % 6.2 %; Hematocrit 34.7 % (36-47); Lymphocytes # 0.6 10^3/uL (0.8-4.8); Lymphocytes % 11.2 %; Mean Corpuscular HGB Conc 31.1 g/dL (30-55); Mean Corpuscular Hemoglobin 27.7 pg (27-33); Mean Platelet Volume 9.8 fL (7.4-10.4); Monocytes # 0.8 10^3/uL (0.2-0.9); Monocytes % 14.1 %; Neutrophils # 3.72 10^3/uL (1.8-7.7); Neutrophils % 67.4 %; Nucleated Red Blood Cells % 0 %; Platelet Count 257 10^3/cmm (157-399); Red Cell Distribution Width 17.2 % (12.1-15.1); White Blood Count 5.52 10^3/uL (3.29-11.43)
[2025-04-01 08:52] LABS: Alanine Aminotransferase 8 U/L (0-33); Alkaline Phosphatase 71 U/L (35-105); Anion Gap 16.8 (5-19); Blood Urea Nitrogen 10 mg/dL (6-20); Calcium 9.3 mg/dL (8.5-10.5); Carbon Dioxide 22 mmol/L (22-29); Chloride 102 mmol/L (98-107); Creatinine Clr Calc Pharmacy 83.4899; Globulin 2.9 g/dL (1.3-4.6); Glomerular Filtration Rate 96.4 mL/min (90-130); Glucose 94 mg/dL (65-115); Osmolality Calculated 283 mOsm/kg (285-295); Potassium 3.8 mmol/L (3.5-5.1); Sodium 137 mmol/L (136-145); Total Bilirubin 0.3 mg/dL (0.15-1.2); Total Protein 6.9 g/dL (6.6-8.7)
[2025-04-01 08:59] LABS: Aspartate Amino Transferase 16 U/L (0-32)
[2025-04-01] MEDS: dextrose 5% 250 ML 75 ML IV (10:27)
[2025-04-01] MEDS: dexamethasone 4 mg/mL INJ 5 mL 12 MG IVP (10:33)
[2025-04-01] MEDS: palonosetron 0.25 mg/5 mL SDV IVP (10:39)
[2025-04-01] MEDS: aprepitant 130 mg/18 ml SDV IVP (10:43)
[2025-04-01] MEDS: atropine 1 mg/mL SDV 1 mL 0.4 MG IV (11:12)
[2025-04-01] MEDS: irinotecan 200 MG, irinotecan 70 MG in dextrose 5% 250 ML 180 MG IV (11:13)
[2025-04-01] MEDS: LEUCOVORIN IV (11:14)
[2025-04-01] MEDS: DEXTROSE 5% IV (11:14)
[2025-04-01] MEDS: fluorouraciL 50 mg/ml MDV 100 mL 600 MG IVP (13:52)
[2025-04-01] MEDS: fluorouraciL 3,600 MG, elastomeric pump 1 PUMP in sodium chloride 0.9% (100 ml) 20 ML IV (14:03)
[2025-04-01 14:23] VITALS: BP 90/57; PULSE 76; RESP 16; TEMP 36.3; O2SAT 98
[2025-04-03 12:23] VITALS: BP 84/55; PULSE 76; RESP 18; TEMP 36.3; O2SAT 99
--- NOTE | 2025-04-05 12:00 | PETR_ITS ---
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 Corok would like this done on 04/05/25 LABS AND CLINICAL REPORTS: Glucose: 132 mg/dl Treatment strategy for malignancy (PET staging): Restaging (PS) TECHNIQUE: Imaging protocol: Following at least four-hour fasting and following the injection of radiopharmaceutical, low dose CT images were obtained. Then, PET images were obtained. Attenuation corrected images were constructed using the CT scan. Fused images of PET and CT were reviewed. The standardized uptake values (SUV) reported below are maximum values within a region of interest, expressed in gm/ml. Exam includes orbital meatal line to mid-thigh. SUV normalization method: BodyWeight Radiopharmaceutical: 11.27 mCi F-18 FDG (Fluorodeoxyglucose), IV. Time of imaging post radiopharmaceutical administration: 46 minutes Injection site: LAC COMPARISON: PT PET skull to thigh SUBS [id number] 12/14/2024 11:31 AM FINDINGS: Tubes, catheters and devices: A right subclavian central venous port catheter terminates in the SVC. Brain: Visualized brain has normal physiologic uptake. Pharynx: No abnormal uptake. Larynx: No abnormal uptake. Lungs, pleura and trachea: Bilateral solid pulmonary nodules are increased in size since the prior PET-CT, the largest of which is present in the anterior aspect of the right lower lobe measuring 9 mm (previously 7 mm) on series 202, image 118, SUV max 8.9 (previously 3.4). Additional smaller nodules are without elevated uptake. Examples: a solid lateral right lower lobe 4 mm (previously 2 mm) nodule on image 112 is not radiotracer avid; a right middle lobe 5 mm nodule on image 91 demonstrates an SUV max 1.0. A solid left upper lobe 3 mm nodule on image 91 is present, SUV max 0.6. Heart: Normal physiologic uptake. Mediastinal space: No abnormal uptake. Liver: Two foci of abnormal uptake are identified centered in segment 8 of the liver corresponding to increased in size low-density lesions on the CT images measuring 4.5 x 4.[address] image 123, SUV max 10.7 (previously 8.9), and measuring 4.1 x 4[address] image 131, SUV max 12.7 (previously 13.4). Gallbladder and biliary ducts: No abnormal uptake. Pancreas: No abnormal uptake. Spleen: No abnormal uptake. Adrenal glands: Elevated uptake is noted within regions of ill-defined nodularity of both adrenal glands, SUV max 7.8 (previously 8.0) on the right on PET image 141 and SUV max 5.0 (previously 10.8) on the left on image 147. Kidneys and ureters: Normal physiologic uptake. Stomach and bowel: Abnormal wall thickening in the distal sigmoid colon and rectum is noted, SUV max 13.4 (previously 15.5) in the distal rectum on image 253. Uptake in the more proximal rectum demonstrates an SUV max 9.7 (previously 17.5) on image 237. Uptake in the distal sigmoid colon near the rectosigmoid junction is new and demonstrates an SUV max 17.5 series 301, image 226. A new 1.4 cm in diameter rounded focus of elevated uptake on PET image 249 along the left anterolateral aspect of the rectum is noted, SUV max 7.4 without well-defined correlating lesion on the CT images, possibly arising from the rectal wall or the adjacent vagina. Vasculature: No abnormal uptake. Lymph nodes: Uptake within mildly prominent clustered upper abdominal retroperitoneal lymph nodes is present, for example on PET series 301, image 170, SUV max 4.5 (8.6) within left periaortic lymph . Interval decrease in uptake within right periaortic retroperitoneal lymph nodes is noted, SUV max 2.3 (previously 5.0) on image 173; Radiotracer avid lymph nodes in the pelvis are present involving the iliac chains. Examples: A right proximal common iliac chain lymph node measuring 1.6 x 1.0 cm (previously 1.2 x 0.8 cm) on series 202, image 186 is noted with increased uptake, SUV max 6.9 (previously 4.9); a cluster of partially calcified lymph nodes along the left pelvic sidewall measuring 2.9 x 2.2 cm (previously 4.1 x 7.2 cm) on series 202, image 219 is noted, SUV max 8.6 (previously 6.0). A presacral partially calcified lymph node currently measuring 1.0 cm (previously 1.2 cm) in short axis is no longer radiotracer avid (previous SUV max 6.8) on series 202, image 226. Skeleton: No abnormal uptake in the visualized axial and appendicular skeleton. Soft tissues: Ill-defined soft tissue density in the presacral space is noted with mild uptake, SUV max 3.1 (previously 7.9) on image 244. METRICS: Mediastinal blood pool: SUV max 1.7, SUV mean 1.5 Liver uptake: SUV max 2.1, SUV mean 1.9 PET/PET skull to thigh SUBS [id number] IMPRESSION: 1. Elevated uptake within the rectum persists but has decreased since the prior PET-CT, however, there is new uptake in the region of the distal sigmoid colon near the rectosigmoid junction concerning for extension of malignancy into this region. 2. A rounded focus of elevated uptake concerning for malignancy along the left anterolateral aspect of the rectum is new since the prior PET-CT and may arise exophytically from the wall of the rectum or the adjacent vagina. 3. Interval decrease in uptake within soft tissue density in the presacral space. 4. Radiotracer avid lymph nodes in the abdomen and pelvis persist, some of which demonstrate increased uptake while others demonstrate interval decrease in uptake suggestive of a mixed response to therapy. 5. Two previously identified radiotracer avid liver metastatic lesions are increased in size since the prior PET-CT, one of which demonstrates an interval increase in uptake, and one of which demonstrates an interval decrease in uptake. 6. Uptake in the bilateral adrenal glands concerning for metastases has decreased. 7. There has been an interval increase in size of bilateral solid pulmonary nodules since the prior PET-CT. The largest nodule continues to be radiotracer avid, with interval increase in uptake. Assessment of the smaller nodules can be limited by PET-CT.
[2025-04-15 08:41] LABS: Basophils % 0.7 %; Eosinophils # 0.3 10^3/uL (0.0-0.8); Eosinophils % 5.4 %; Hematocrit 33.6 % (36-47); Lymphocytes # 0.8 10^3/uL (0.8-4.8); Lymphocytes % 14.3 %; Mean Corpuscular Hemoglobin 27.8 pg (27-33); Mean Corpuscular Volume 89.8 fl (85-98); Mean Platelet Volume 9.8 fL (7.4-10.4); Monocytes # 0.8 10^3/uL (0.2-0.9); Monocytes % 14.7 %; Neutrophils # 3.56 10^3/uL (1.8-7.7); Neutrophils % 64.5 %; Nucleated Red Blood Cells % 0 %; Platelet Count 245 10^3/cmm (157-399); Red Blood Count 3.74 10^6/uL (3.85-5.65); Red Cell Distribution Width 17.7 % (12.1-15.1); White Blood Count 5.52 10^3/uL (3.29-11.43)
[2025-04-15 09:07] LABS: Carcinoembryonic Antigen 49.1 ng/mL (0.0-4.7)
[2025-04-15 09:18] LABS: Lactate Dehydrogenase 196 U/L (135-214)
[2025-04-15 09:22] LABS: Alanine Aminotransferase 7 U/L (0-33); Alkaline Phosphatase 64 U/L (35-105); Anion Gap 16.9 (5-19); Aspartate Amino Transferase 14 U/L (0-32); Blood Urea Nitrogen 11 mg/dL (6-20); Calcium 9.5 mg/dL (8.5-10.5); Carbon Dioxide 24 mmol/L (22-29); Chloride 101 mmol/L (98-107); Ferritin 424 ng/mL (15-150); Globulin 2.8 g/dL (1.3-4.6); Glomerular Filtration Rate 96.4 mL/min (90-130); Glucose 87 mg/dL (65-115); Osmolality Calculated 285 mOsm/kg (285-295); Potassium 3.9 mmol/L (3.5-5.1); Sodium 138 mmol/L (136-145); Total Bilirubin 0.2 mg/dL (0.15-1.2); Total Protein 6.8 g/dL (6.6-8.7)
[2025-04-15 09:38] LABS: Vitamin B12 364 pg/mL (232-1245)
[2025-04-15 09:52] LABS: Folate Level > 20.0 ng/mL (4.8-37.3)
[2025-04-15] MEDS: aprepitant 130 mg/18 ml SDV IVP (09:54)
[2025-04-15] MEDS: dextrose 5% 250 ML 75 ML IV (09:54)
[2025-04-15] MEDS: palonosetron 0.25 mg/5 mL SDV IVP (09:54)
[2025-04-15] MEDS: atropine 1 mg/mL SDV 1 mL 0.4 MG IV (10:02)
[2025-04-15] MEDS: dexamethasone 4 mg/mL INJ 5 mL 12 MG IVP (10:04)
[2025-04-15] MEDS: DEXTROSE 5% IV (10:49)
[2025-04-15] MEDS: LEUCOVORIN IV (10:49)
[2025-04-15] MEDS: irinotecan 200 MG, irinotecan 70 MG in dextrose 5% 250 ML 175.67 MG IV (10:49)
[2025-04-15 11:33] LABS: Bilirubin Urine Negative (Negative); Blood Urine Negative (Negative); Glucose Urine UA Negative (Normal); Ketones Urine Negative (Negative); Leukocyte Esterase Urine 1+ (Negative); Nitrate Urine Negative (Negative); Protein Urine Negative (Negative); Specific Gravity, Urine 1.017 (1.005-1.030); Urine Appearance Clear (CLEAR); Urine Color Yellow (Yellow); Urobilinogen Urine 0.2 mg/dL (Negative)
[2025-04-15 11:38] LABS: Add Urine Microscopic? YES; Bacteria Urine None Seen /hpf; Hyaline Casts Urine 2.87 /lpf; RBC Urine 0-2 /hpf (0-2); Squamous Epithelial Cell Urine 0-5 /hpf (0-5)
[2025-04-15 11:44] LABS: Add Urine Culture? No
[2025-04-15] MEDS: fluorouraciL 50 mg/ml MDV 100 mL 604 MG IVP (12:39)
[2025-04-15] MEDS: fluorouraciL 3,600 MG, elastomeric pump 1 PUMP in sodium chloride 0.9% (100 ml) 20 ML IV (12:49)
[2025-04-15 12:55] VITALS: BP 99/61; PULSE 74; RESP 16; TEMP 36.4; O2SAT 100
== END 2025-04-22 23:59 | disposition home or self-care (01) ==
PROVIDERS: Internal Medicine; Internal Medicine Medical Oncology; Nurse Practitioner Family; PCP Family Medicine; Visit Provider Radiology Radiation Oncology
DX: Z53.9 Procedure and treatment not carried out, unspecified reason; Z45.1 Encounter for adjustment and management of infusion pump
CPT/HCPCS: 71260; 78815; 80053; 81001; 82378; 82607; 82728; 82746; 83010; 83615; 85025; 96365; 96366; 96368; 96375; 96409; 96411; 96413; 96415; 96416; 96523; A9552; J0185; J0461; J0640; J1100; J2469; J7060; J9190; J9206

== ENCOUNTER 2025-05-13 07:43 | Oncology outpatient (recurring) (ONCR) | payer BC, MEDICAID, SELFPAY ==
[2025-04-29 08:21] LABS: Hematocrit 33.0 % (36-47); Hemoglobin 10.40 g/dL (11.27-16.99); Mean Corpuscular HGB Conc 31.5 g/dL (30-55); Mean Corpuscular Hemoglobin 29.3 pg (27-33); Mean Corpuscular Volume 93.0 fl (85-98); Nucleated Red Blood Cells % 0 %; Platelet Count 264 10^3/cmm (157-399); Red Blood Count 3.55 10^6/uL (3.85-5.65); White Blood Count 5.64 10^3/uL (3.29-11.43)
[2025-04-29 08:38] LABS: Albumin Level 3.9 g/dL (3.5-5.2); Alkaline Phosphatase 69 U/L (35-105); Chloride 104 mmol/L (98-107); Potassium 3.7 mmol/L (3.5-5.1); Sodium 142 mmol/L (136-145)
[2025-04-29 08:59] LABS: Alanine Aminotransferase 8 U/L (0-33); Anion Gap 17.7 (5-19); Aspartate Amino Transferase 14 U/L (0-32); Blood Urea Nitrogen 9 mg/dL (6-20); Calcium 9.3 mg/dL (8.5-10.5); Carbon Dioxide 24 mmol/L (22-29); Creatinine Clr Calc Pharmacy 101.2261; Globulin 2.8 g/dL (1.3-4.6); Glucose 106 mg/dL (65-115); Osmolality Calculated 293 mOsm/kg (285-295); Total Protein 6.7 g/dL (6.6-8.7)
[2025-04-29] MEDS: dexamethasone 4 mg/mL INJ 5 mL 12 MG IVP (09:30)
[2025-04-29] MEDS: aprepitant 130 mg/18 ml SDV IVP (09:38)
[2025-04-29] MEDS: atropine 1 mg/mL SDV 1 mL 0.4 MG IV (09:44)
[2025-04-29] MEDS: leucovorin 620 MG in dextrose 5% 250 ML 166.67 MG IV (10:05)
[2025-04-29] MEDS: IRINOTECAN IV (10:06)
[2025-04-29] MEDS: DEXTROSE 5% IV (10:06)
[2025-04-29 11:29] LABS: Glucose Urine UA Negative (Normal); Nitrate Urine Negative (Negative); Specific Gravity, Urine 1.021 (1.005-1.030)
[2025-04-29 11:34] LABS: Add Urine Microscopic? YES
[2025-04-29] MEDS: fluorouraciL 50 mg/ml MDV 100 mL 612 MG IVP (12:37)
[2025-04-29] MEDS: fluorouraciL 3,650 MG, elastomeric pump 1 PUMP in sodium chloride 0.9% (100 ml) 19 ML IV (12:37)
[2025-04-29 13:11] VITALS: BP 99/65; PULSE 80; RESP 16; TEMP 36.4; O2SAT 98
[2025-05-13 07:59] LABS: Hematocrit 33.8 % (36-47); Hemoglobin 10.80 g/dL (11.27-16.99); Mean Corpuscular HGB Conc 32.0 g/dL (30-55); Mean Corpuscular Hemoglobin 29.7 pg (27-33); Mean Corpuscular Volume 92.9 fl (85-98); Nucleated Red Blood Cells % 0 %; Platelet Count 280 10^3/cmm (157-399); Red Blood Count 3.64 10^6/uL (3.85-5.65); White Blood Count 6.17 10^3/uL (3.29-11.43)
[2025-05-13 08:26] LABS: Carcinoembryonic Antigen 56.8 ng/mL (0.0-4.7)
[2025-05-13 08:37] LABS: Alanine Aminotransferase 7 U/L (0-33); Albumin Level 4.0 g/dL (3.5-5.2); Alkaline Phosphatase 75 U/L (35-105); Anion Gap 16.0 (5-19); Aspartate Amino Transferase 13 U/L (0-32); Blood Urea Nitrogen 7 mg/dL (6-20); Calcium 9.5 mg/dL (8.5-10.5); Carbon Dioxide 26 mmol/L (22-29); Chloride 101 mmol/L (98-107); Creatinine Clr Calc Pharmacy 85.9459; Globulin 2.7 g/dL (1.3-4.6); Glucose 94 mg/dL (65-115); Osmolality Calculated 286 mOsm/kg (285-295); Potassium 4.0 mmol/L (3.5-5.1); Sodium 139 mmol/L (136-145); Total Protein 6.7 g/dL (6.6-8.7)
== END 2025-05-23 23:59 | disposition home or self-care (01) ==
PROVIDERS: Internal Medicine; PCP Family Medicine; Visit Provider Internal Medicine Medical Oncology
DX: C20 Malignant neoplasm of rectum; Z53.9 Procedure and treatment not carried out, unspecified reason
CPT/HCPCS: 80053; 81001; 82378; 85025; 96368; 96375; 96411; 96413; 96415; 96416; 96523; J0185; J0461; J0640; J1100; J2469; J7060; J9190; J9206

== ENCOUNTER 2025-07-06 11:17 | Emergency (ER) | payer BC, MEDICAID, SELFPAY ==
[2025-07-06] VITALS (15 sets, daily range): BP systolic 86–96; BP diastolic 50–67; PULSE 88–139; RESP 16–18; TEMP 36.7; O2SAT 92–100
--- NOTE | 2025-07-06 11:50 | CTR_ITS ---
PROCEDURE INFORMATION: Exam: CT Abdomen And Pelvis With Contrast Exam date and time: 07/06/2025 12:36 PM Age: 35 years old Clinical indication: Other: Rectal abscess/rectal CA with mets; Prior surgery; Surgery date: 6+ months; Surgery type: Colon TECHNIQUE: Imaging protocol: Computed tomography of the abdomen and pelvis with contrast. Radiation optimization: All CT scans at this facility use at least one of these dose optimization techniques: automated exposure control; mA and/or kV adjustment per patient size (includes targeted exams where dose is matched to clinical indication); or iterative reconstruction. Contrast material: OMNI 350; Contrast volume: 75 ml; Contrast route: INTRAVENOUS (IV); COMPARISON: CT abdomen pelvis w con* [id number] 07/02/2025 4:17 PM RADIATION DOSE METRICS: Total DLP (mGy-cm): 374.05 FINDINGS: Lungs: Right middle lobe and right lower lobe nodules are seen. Largest measures 1 x 1 cm. Liver: Multiple hepatic masses are seen. The dominant mass measures 7.6 x 7.4 cm. This is stable. The liver measures 21.2 cm. in length. Gallbladder and biliary ducts: Normal. No calcified stones. No ductal dilation. Pancreas: Normal. No ductal dilation. Spleen: Normal. No splenomegaly. Adrenal glands: Stable left adrenal 1.6 x 0.7 cm hypodense lesion. Kidneys and ureters: Normal. No hydronephrosis. Stomach and bowel: Interval decrease of right perirectal fluid collection. Small residual fluid measuring 3 x 1.1 cm mixed with air densities is seen. There is a left lower quadrant colostomy. Persistent rectal wall thickening measuring 1.3 cm in thickness. No small bowel loop dilatation. Appendix: Appendix is normal. Intraperitoneal space: Unremarkable. No free air. No significant fluid collection. Vasculature: Unremarkable. No abdominal aortic aneurysm. Lymph nodes: No significant change in enlarged retroperitoneal lymph nodes. Urinary bladder: Bladder wall is thickened measuring 5 mm. Reproductive: Unremarkable as visualized. Bones/joints: Unremarkable. No acute fracture. Soft tissues: No significant change of calcified lesions anterior to the sacrum and along the left pelvic wall. CT/CT abdomen pelvis w con* [id number] IMPRESSION: 1. Interval decrease of right perirectal fluid collection. Small residual fluid measuring 3 x 1.1 cm mixed with air densities is seen. 2. Pulmonary metastases. 3. No significant change in enlarged retroperitoneal adenopathy 4. Bladder wall is thickened measuring 5 mm. 5. Hepatomegaly. Hepatic metastases. 6. Additional findings as described.
--- NOTE | 2025-07-06 11:55 | ED_ITS ---
HPI - Wound/Laceration 2 General: Chief Complaint: Wound/Laceration Stated Complaint: spot on rectum Time Seen by Provider: 07/06/25 11:45 History of Present Illness: 35-year-old female presents to the emerg ency room with complaints of rectal pain. Patient has a history of rectal CA with metastasis she tells me she has a stage IV rectal cancer. She was seen earlier this week there was a concern for an abscess in the rectal area she was started prophylactically on antibiotics an outpatient CT was done she had not heard the results of that yet. Reviewed the CT done on 07 02 on the chart shows a new perirectal abscess with progression of pulmonary and hepatic metastasis. Patient is extremely weak presents to the emergency room tachycardic and hypotensive. Hemoglobin on 07/02 was 9.4. Patient reports bright red blood per rectum she has not had any bleeding in her colostomy. Associated symptoms: Reports nausea; Denies chills or fever(s) Related Data Home Medications ?Medication ?Instructions ?Recorded ?Confirmed CBD gummy 5 mg PO 1XD PRN Pain 4 07/06/25 multivitamin 1 tab PO DAILY 05/09/2406/24 cholecalciferol (vitamin D3) 1,250 1,250 mcg PO DAILY 06/25/25 07/06/25 mcg (50,000 unit) capsule Previous Rx's ?Medication ?Instructions ?Recorded lorazepam 1 mg tablet 0.5 - 1 mg (0.5 - 1 x 1 mg) PO Q6H 12/19/24 Held on 12/25/24. PRN severe nausea #30 tabs Instructions: Resume on 12/26/24. ondansetron HCl 4 mg tablet 4 mg PO Q6H PRN nausea and 12/19/24 vomiting #30 tabs prochlorperazine maleate 10 mg 10 mg PO Q4H PRN mild n ausea #50 04/15/25 tablet (Compazine) tabs oxycodone-acetaminophen 10 mg-325 1 tab PO QID PRN deanna n 30 days #120 06/19/25 mg tablet tabs morphine 30 mg tablet,extended 30 mg PO Q12H 30 days # 60 tabs 06/25/25 release trifluridine 15 mg-tipiracil 6.14 2 tab PO BID #40 tab s 07/01/25 mg tablet (Lonsurf) trifluridine 20 mg-tipiracil 8.19 1 tab PO BID #20 tab s 07/01/25 mg tablet levofloxacin 750 mg tablet 750 mg PO DAILY 7 days #7 t abs 07/02/25 Allergies Allergy/AdvReac Type Severity Reaction Status Date / Time shellfish derived Allergy Mild nothing Verified 07/02/25 10:56 noticeable Review of Systems 2 Const: Denies: fever(s) or chills Card: Denies: chest pain Resp: Denies: dyspnea GI: Reports: nausea, rectal pain and hematochezia; Denies: abdominal pain : Denies: dysuria, urinary frequency or urinary urgency Musc: Denies: neck pain or back pain Skin/Breast: Denies: rash PFSH ED 2 PFSH: Medical History Fistula Colostomy in place Iron deficiency anemia Rectal cancer Surgical History Port-A-Cath in place History of colonoscopy (04/19/24) Family History Other Cancer Stroke Denies family history of Diabetes CAD (coronary artery disease) Chronic kidney disease (CKD) Lung disease Social History Smoking and tobacco/nicotine status: never used tobacco/nicotine Second hand smoke exposure: Yes Alcohol intake: never Substance/Drug Use: never Lives independently: Yes Marital status: Single Physical Exam 2 Const: COMMON NORMALS: no acute distress GENERAL APPEARANCE: cooperative and comfortable ORIENTATION/CONSCIOUSNESS: Yes awake, Yes oriented to person, Yes oriented to place and Yes oriented to time HENMT: COMMON NORMALS: normocephalic, atraumatic and hearing grossly normal bilaterally HEAD & SCALP: normocephalic and atraumatic Resp: COMMON NORMALS: normal respiratory effort, No retractions, No use of accessory muscles and clear to auscultation bilaterally AUSCULTATION: clear to auscultation bilaterally Cardio: COMMON NORMALS: regular rate, regular rhythm and No murmurs present (Cardio) RATE: regular rate RHYTHM: regular rhythm GI: COMMON NORMALS: Soft to palpation and No hepatosplenomegaly present A USCULTATION: Yes normoactive bowel sounds PALPATION: Yes Soft to palpation, No Tenderness to palpation present (GI), No Guarding due to palpation present (GI) and Yes No hepatosplenomegaly present Extremity: COMMON NORMALS: normal to inspection, capillary refill normal, no clubbing, cyanosis or edema, no calf tenderness and no pedal edema Neuro: SENSORIUM/ORIENTATION: Yes oriented to person, Yes oriented to place and Yes oriented to time Skin: COMMON NORMALS: no rashes or lesions noted GENERAL SKIN EXAM: no rashes or lesions noted Course 2 Vital Signs: Vital signs: Vital Signs Temperature 98.0 F 07/06/25 11:38 Pulse Rate 88 07/06/25 16:00 Respiratory Rate 16 07/06/25 16:00 Blood Pressure 96/59 07/06/25 16:00 Pulse Oximetry 99 07/06/25 16:00 Oxygen Delivery Me thod Room Air 07/06/25 16:00 MDM - Wound/Laceration Medical Decision Making CT shows abscess smaller in size I believe that is because it has been draining. She has white count of 19,000 I reviewed her blood pressures from office visits seen pressures around 108-110, other pressures have been in this range in the past.. She is now consistently in the 80s. Her lactic acid is normal. Cultures have been done she was started on IV Vanco and Zosyn. Discussed with our on-call surgeon given her history with rectal cancer with mets in the perirectal abscess he recommends referral back to colorectal surgery. Patient previously the procedure done at [facility]. Patient was given initial sepsis fluid bolus and then another liter of fluid. Pressure currently 96/59 with a MAP of 71. Looking back she has in the past had pressures in the 90s. We started on IV antibiotics discussed with colorectal surgeon she has seen previously they recommend transferring to the hospitalist service and they will consult. They agree with continuing broad-spectrum antibiotics. Discussed with the patient and she is agreeable. We are waiting on bed assignment at this time Medical Records I reviewed the patient's medical records. Lab Data I reviewed the patient's lab results. 07/06/25 11:52 07/06/25 11:52 Radiology Impressions Abdomen/Pelvis CT 07/06/25 11:50 IMPRESSION: 1. Interval decrease of right perirectal fluid collection. Small residual fluid measuring 3 x 1.1 cm mixed with air densities is seen. 2. Pulmonary metastases. 3. No significant change in enlarged retroperitoneal adenopathy 4. Bladder wall is thickened measuring 5 mm. 5. Hepatomegaly. Hepatic metastases. 6. Additional findings as described. Laboratory Results WBC 19.22 10^3/uL (3.29-11.43) H 07/06/25 11:52 RBC 3.44 10^6/uL (3.85-5.65) L 07/06/25 11:52 Hgb 9.40 g/dL (11.27-16.99) L 07/06/25 11:52 Hct 30.3 % (36-47) L 07/06/25 11:52 MCV 88.1 fl (85-98) 07/06/25 11:52 MCH 27.3 pg (27-33) 07/06/25 11:52 MCHC 31.0 g/dL (30-55) 07/06/25 11:52 RDW 14.3 % (12.1-15.1) 07/06/25 11:52 Plt Count 511 10^3/cmm (157-399) H 07/06/25 11:52 MPV 9.7 fL (7.4-10.4) 07/06/25 11:52 Neut % (Auto) 84.1 % 07/06/25 11:52 Lymph % (Auto) 3.9 % 07/06/25 11:52 [place] % (Auto) 7.4 % 07/06/25 11:52 Eos % (Auto) 1.4 % 07/06/25 11:52 Baso % (Auto) 0.3 % 07/06/25 11:52 Neut # (Auto) 16.17 10^3/uL (1.8-7.7) H 07/06/25 11:52 Lymph # (Auto) 0.7 10^3/uL (0.8-4.8) L 07/06/25 11:52 [place] # (Auto) 1.4 10^3/uL (0.2-0.9) H 07/06/25 11:52 Eos # (Auto) 0.3 10^3/uL (0.0-0.8) 07/06/25 11:52 Baso # (Auto) 0.1 10^3/uL (0.0-0.1) 07/06/25 11:52 Nucleated RBC % (auto) 0 % 07/06/25 11:52 Nucleated RBCs # 0.0 /100WBC 07/06/25 11:52 Sodium 137 mmol/L (136-145) 07/06/25 11:52 Potassium 4.0 mmol/L (3.5-5.1) 07/06/25 11:52 Chloride 95 mmol/L (98-107) L 07/06/25 11:52 Carbon Dioxide 27 mmol/L (22-29) 07/06/25 11:52 Anion Gap 16.8 (5-19) 07/06/25 11:52 BUN 9 mg/dL (6-20) 07/06/25 11:52 Creatinine 0.6 mg/dL (0.5-0.9) 07/06/25 11:52 GFR Calculation 115.1 mL/min (90-130) 07/06/25 11:52 Glucose 116 mg/dL (65-115) H 07/06/25 11:52 Calculated Osmolality 274 mOsm/kg (285-295) L 07/06/25 11:52 Lactic Acid 1.3 mmol/L (0.5-2.2) 07/06/25 11:52 Calcium 9.4 mg/dL (8.5-10.5) 07/06/25 11:52 Magnesium 1.8 mg/dL (1.7-2.3) 07/06/25 11:52 Total Bilirubin 0.2 mg/dL (0.15-1.2) 07/06/25 11:52 AST 21 U/L (0-32) 07/06/25 11:52 ALT 13 U/L (0-33) 07/06/25 11:52 Alkaline Phosphatase 143 U/L (35-105) H 07/06/25 11:52 Total Protein 7.1 g/dL (6.6-8.7) 07/06/25 11:52 Albumin 3.1 g/dL (3.5-5.2) L 07/06/25 11:52 Globulin 4.0 g/dL (1.3-4.6) 07/06/25 11:52 Lipase 9 U/L (13-60) L 07/06/25 11:52 Urine Color Yellow (Yellow) 07/06/25 13:29 Urine Appearance Clear (CLEAR) 07/06/25 13:29 Urine pH 6.0 (5-7) 07/06/25 13:29 Ur Specific [place] 1.062 (1.005-1.030) H 07/06/25 13:29 Urine Protein Trace (Negative) A 07/06/25 13:29 Urine Glucose (UA) Negative (Normal) 07/06/25 13: Urine Ketones Negative (Negative) 07/06/25 13:29 Urine Blood Negative (Negative) 07/06/25 13:29 Urine Nitrate Negative (Negative) 07/06/25 13: Urine Bilirubin Negative (Negative) 07/06/25 13: Urine Urobilinogen 0.2 mg/dL (Negative) 07/06/25 13:29 Ur Leukocyte Esterase Negative (Negative) 07/06/25 13:29 Urine RBC 0-2 /hpf (0-2) 07/06/25 13:29 Urine WBC 6-10 /hpf (0-5) 07/06/25 13:29 Ur Squamous Epith Cells 0-5 /hpf (0-5) 07/06/25 13:29 Amorphous Sediment Not Reportable 07/06/25 13:29 Urine Bacteria None seen /hpf (NONE) 07/06/25 13:29 Hyaline Casts 3.30 /lpf 07/06/25 13:29 All radiology interpretation(s) finalized by discharge Discharge Plan Discharge Patient Disposition: Xfer Short-Term Hosp Clinical Impression: Perirectal abscess, Adenocarcinoma of rectum, Leukocytosis Condition: Stable Referrals: Ritika Bejarano MD [Primary Care Provider, 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
[2025-07-06 12:13] LABS: Hematocrit 30.3 % (36-47); Hemoglobin 9.40 g/dL (11.27-16.99); Mean Corpuscular HGB Conc 31.0 g/dL (30-55); Mean Corpuscular Hemoglobin 27.3 pg (27-33); Mean Corpuscular Volume 88.1 fl (85-98); Nucleated Red Blood Cells % 0 %; Platelet Count 511 10^3/cmm (157-399); Red Blood Count 3.44 10^6/uL (3.85-5.65); White Blood Count 19.22 10^3/uL (3.29-11.43)
[2025-07-06 12:29] LABS: Alanine Aminotransferase 13 U/L (0-33); Albumin Level 3.1 g/dL (3.5-5.2); Alkaline Phosphatase 143 U/L (35-105); Chloride 95 mmol/L (98-107); Potassium 4.0 mmol/L (3.5-5.1); Sodium 137 mmol/L (136-145)
[2025-07-06 12:36] LABS: Lactic Sepsis W/Reflex 1.3 mmol/L (0.5-2.2)
[2025-07-06 12:37] LABS: Anion Gap 16.8 (5-19); Aspartate Amino Transferase 21 U/L (0-32); Blood Urea Nitrogen 9 mg/dL (6-20); Calcium 9.4 mg/dL (8.5-10.5); Carbon Dioxide 27 mmol/L (22-29); Creatinine Clr Calc Pharmacy 99.3166; Globulin 4.0 g/dL (1.3-4.6); Glucose 116 mg/dL (65-115); Lipase 9 U/L (13-60); Magnesium 1.8 mg/dL (1.7-2.3); Osmolality Calculated 274 mOsm/kg (285-295); Total Protein 7.1 g/dL (6.6-8.7)
[2025-07-06] MEDS: iohexol 350 mg/mL 500 mL Btl (per mL) IV (12:40)
[2025-07-06 13:45] LABS: Glucose Urine UA Negative (Normal); Nitrate Urine Negative (Negative)
[2025-07-06 13:48] LABS: Add Urine Microscopic? YES
[2025-07-06] MEDS: piperacillin-tazobactam 3.375 GM in sodium chloride 0.9% (plus) 50 ML IV (14:06)
[2025-07-06 14:08] LABS: Specific Gravity, Urine 1.062 (1.005-1.030)
[2025-07-06 14:09] LABS: UA Slide Review UA Slide Review Perf
[2025-07-06] MEDS: ondansetron 2 mg/ML SDV 2 mL 4 MG IVP (19:09)
[2025-07-06] MEDS: morphine 4 mg/mL SDV 1 mL 6 MG IVP (19:11)
== END 2025-07-06 19:52 | disposition short-term general hospital (02) ==
PROVIDERS: Emergency Provider Family Medicine; PCP Family Medicine
DX: K61.1 Rectal abscess (principal); C20 Malignant neoplasm of rectum; D72.829 Elevated white blood cell count, unspecified
CPT/HCPCS: 36415; 74177; 80053; 81001; 83605; 83690; 83735; 85025; 87040; 96365; 96366; 96367; 96375; 99285; J2270; J2405; J2543; J3373; J7030; J7050

== ENCOUNTER 2025-07-18 10:01 | Oncology outpatient (recurring) (ONCR) | payer BC, MEDICAID, SELFPAY ==
[2025-06-25] MEDS: alteplase 1 mg/mL SDV 2 mL 2 MG INTRACATH (16:03)
[2025-06-25 16:19] LABS: Hematocrit 32.8 % (36-47); Hemoglobin 10.30 g/dL (11.27-16.99); Mean Corpuscular HGB Conc 31.4 g/dL (30-55); Mean Corpuscular Hemoglobin 28.1 pg (27-33); Mean Corpuscular Volume 89.4 fl (85-98); Nucleated Red Blood Cells % 0 %; Platelet Count 467 10^3/cmm (157-399); Red Blood Count 3.67 10^6/uL (3.85-5.65); White Blood Count 10.93 10^3/uL (3.29-11.43)
[2025-06-25 16:39] LABS: Alanine Aminotransferase 6 U/L (0-33); Albumin Level 3.7 g/dL (3.5-5.2); Alkaline Phosphatase 89 U/L (35-105); Anion Gap 14.1 (5-19); Aspartate Amino Transferase 18 U/L (0-32); Blood Urea Nitrogen 8 mg/dL (6-20); Calcium 9.4 mg/dL (8.5-10.5); Carbon Dioxide 28 mmol/L (22-29); Chloride 96 mmol/L (98-107); Creatinine Clr Calc Pharmacy 97.4049; Ferritin 490 ng/mL (15-150); Globulin 3.6 g/dL (1.3-4.6); Glucose 121 mg/dL (65-115); Iron 13 ug/dL (37-145); Osmolality Calculated 278 mOsm/kg (285-295); Potassium 4.1 mmol/L (3.5-5.1); Sodium 134 mmol/L (136-145); Total Iron Binding Capacity 144 mcg/dl; Total Protein 7.3 g/dL (6.6-8.7); Unsaturated Iron Binding 131 ug/dL (112-347)
[2025-06-25 19:56] LABS: Carcinoembryonic Antigen 41.4 ng/mL (0.0-4.7)
[2025-07-02 09:34] LABS: Hematocrit 29.8 % (36-47); Hemoglobin 9.40 g/dL (11.27-16.99); Mean Corpuscular HGB Conc 31.5 g/dL (30-55); Mean Corpuscular Hemoglobin 27.7 pg (27-33); Mean Corpuscular Volume 87.9 fl (85-98); Nucleated Red Blood Cells % 0 %; Platelet Count 483 10^3/cmm (157-399); Red Blood Count 3.39 10^6/uL (3.85-5.65); White Blood Count 18.15 10^3/uL (3.29-11.43)
[2025-07-02 09:51] LABS: Alanine Aminotransferase 7 U/L (0-33); Albumin Level 3.5 g/dL (3.5-5.2); Alkaline Phosphatase 103 U/L (35-105); Anion Gap 13.1 (5-19); Aspartate Amino Transferase 16 U/L (0-32); Blood Urea Nitrogen 7 mg/dL (6-20); Calcium 9.3 mg/dL (8.5-10.5); Carbon Dioxide 27 mmol/L (22-29); Chloride 96 mmol/L (98-107); Creatinine Clr Calc Pharmacy 97.4049; Globulin 3.5 g/dL (1.3-4.6); Glucose 128 mg/dL (65-115); Iron 9 ug/dL (37-145); Magnesium 1.8 mg/dL (1.7-2.3); Osmolality Calculated 274 mOsm/kg (285-295); Potassium 4.1 mmol/L (3.5-5.1); Sodium 132 mmol/L (136-145); Total Iron Binding Capacity 108 mcg/dl; Total Protein 7.0 g/dL (6.6-8.7); Unsaturated Iron Binding 99 ug/dL (112-347)
[2025-07-02] MEDS: ertapenem 1,000 mg SDV 1000 MG IVP (11:52)
--- NOTE | 2025-07-02 15:00 | CTR_ITS ---
PROCEDURE INFORMATION: Exam: CT Abdomen And Pelvis With Contrast Exam date and time: 07/02/2025 4:17 PM Age: 35 years old Clinical indication: Prior chemotherapy - rectal 05-28-24. Prior radiation therapy - rectal jul 2024. Abdominal pain and other: Rectal; Acute; Prior surgery; Surgery date: 6+ months; Surgery type: Colorectal, rectal pain elevated wbc, rectal cancer, abscess? ; Additional info: Rectal pain, elevated wbc, rectal cancer TECHNIQUE: Imaging protocol: Computed tomography of the abdomen and pelvis with contrast. Radiation optimization: All CT scans at this facility use at least one of these dose optimization techniques: automated exposure control; mA and/or kV adjustment per patient size (includes targeted exams where dose is matched to clinical indication); or iterative reconstruction. Contrast material: OMNIPAQUE 350; Contrast volume: 100 ml; Contrast route: INTRAVENOUS (IV); Other contrast: Oral, omnipaque 350, 50; COMPARISON: 1. PT PET skull to thigh SUBS [id number] 04/05/2025 12:[address] chest abdpel w/*[id number] 04/23/2024 11:[address] chest abdpel w/*[id number] 07/31/2024 8:[address] abdomen pelvis w con* [id number] 08/15/2024 8:[address] abdomen pelvis w con* [id number] 08/17/2024 2:[address] chest w con* [id number] 03/29/2025 7:43 AM RADIATION DOSE METRICS: Total DLP (mGy-cm): 284.88 FINDINGS: Lungs: There is a 11 mm sized nodule anterior right lung base consistent with known metastasis previously 8 mm on 04/05/2025. There are 2 additional nodules in the right lung base measuring 6.6 and 5.0 not mm previously 5 and 3 mm. This represents progression of pulmonary metastasis. Liver: There are 2 large liver metastasis measuring 47 x 61 mm and 70 x 76 mm, previously 36 x 39 and 44 x 47 mm on 04/05/2025. This represents significant progression. There also new satellite nodules adjacent to this metastasis measuring 13, 7, 13, 16 and 13 mm. There is focal hypodensity left lobe of the liver adjacent the falciform ligament which could represent focal fatty change. There is moderate enlargement of the liver. Liver measures 20 cm in height in the right mid clavicular line. Gallbladder and biliary ducts: Normal. No calcified stones. No ductal dilation. Pancreas: The pancreas is normal. Spleen: There is moderate nonspecific splenomegaly. Spleen measures 15 cm in height. Adrenal glands: The adrenal glands are normal. Kidneys and ureters: The kidneys are normal. There is no evidence of hydronephrosis. There is no evidence of renal or ureteral calcifications. Stomach and bowel: There is colostomy left lower quadrant of the abdomen unchanged. There is thickening of the sigmoid colon not significantly changed. Appendix: Not identified Intraperitoneal space: Unremarkable. No free air. No significant fluid collection. Vasculature: Unremarkable. No abdominal aortic aneurysm. Lymph nodes: Pelvic and retroperitoneal adenopathy is essentially stable compared with 04/05/2025 Urinary bladder: There is severe thickening of the urinary bladder wall, new compared with 08/17/2024 and more or less stable compared with 04/05/2025 PET scan. This could represent urinary tract infection or cystitis. Condition could also be related to radiation therapy. Please correlate with clinical findings and urinalysis. Reproductive: Unremarkable as visualized. Bones/joints: There is no evidence of acute fracture. Soft tissues: Soft tissue thickening seen anterior to the sacrum is likely result of prior therapy. There is a new fluid collection in the right ischial rectal fossa measuring 38 x 34 mm concerning for new abscess. This has enhancing posterior wall also tumor involvement in this location not excluded. The location of this suspected abscess should be amenable to percutaneous sampling or drainage. Soft tissue thickening and stranding within the pelvis is likely related to prior radiation therapy and not significantly changed from 04/05/2025. CT/CT abdomen pelvis w con* [id number] IMPRESSION: 1. Suspicion of new perirectal abscess 2. Progression of pulmonary metastasis 3. Progression of hepatic metastasis 4. Abdominal and pelvic adenopathy not significantly changed 5. Marked thickening of the urinary bladder consistent with cystitis which could be related to prior radiation therapy or infection. Please correlate with appropriate clinical and laboratory findings.
[2025-07-02] MEDS: iohexol 350 mg/mL 500 mL Btl (per mL) IV (16:26)
[2025-07-09 09:21] LABS: Hematocrit 29.5 % (36-47); Hemoglobin 9.00 g/dL (11.27-16.99); Mean Corpuscular HGB Conc 30.5 g/dL (30-55); Mean Corpuscular Hemoglobin 26.8 pg (27-33); Mean Corpuscular Volume 87.8 fl (85-98); Platelet Count 671 10^3/cmm (157-399); Red Blood Count 3.36 10^6/uL (3.85-5.65); White Blood Count 12.94 10^3/uL (3.29-11.43)
[2025-07-09 09:47] LABS: Carcinoembryonic Antigen 36.6 ng/mL (0.0-4.7)
[2025-07-09 09:58] LABS: Alanine Aminotransferase 14 U/L (0-33); Albumin Level 3.2 g/dL (3.5-5.2); Alkaline Phosphatase 120 U/L (35-105); Anion Gap 19.1 (5-19); Aspartate Amino Transferase 21 U/L (0-32); Blood Urea Nitrogen 5 mg/dL (6-20); Calcium 9.3 mg/dL (8.5-10.5); Carbon Dioxide 25 mmol/L (22-29); Chloride 97 mmol/L (98-107); Creatinine Clr Calc Pharmacy 118.0329; Globulin 3.6 g/dL (1.3-4.6); Glucose 94 mg/dL (65-115); Osmolality Calculated 281 mOsm/kg (285-295); Potassium 4.1 mmol/L (3.5-5.1); Sodium 137 mmol/L (136-145); Total Protein 6.8 g/dL (6.6-8.7)
[2025-07-09 10:02] LABS: Slide Review Slide Review Perform
[2025-07-09 10:05] LABS: Absolute Segmented Neutrophil 10.0 10/cmm (1.6-7.1); Atypical Lymphs 5.0 % (0-5); Band Neutrophils Absolute 0.1 10^3/cmm (0.0-1.2); Total Cells Counted 100 (0-100)
[2025-07-09] MEDS: HYDROmorphone 0.5 MG/0.5 ML INJ IVP (10:35)
[2025-07-09] MEDS: FERRIC DERISOMALTOSE IV (11:41)
[2025-07-09] MEDS: SODIUM CHLORIDE 0.9% IV (11:41)
[2025-07-09 12:15] VITALS: BP 110/75; PULSE 119; RESP 17; TEMP 37; O2SAT 98
--- NOTE | 2025-07-10 08:43 | PC.NURSE ---
This nurse administered 0.25mg of Dilaudid instead of the ordered dose of 0.5mg of Dilaudid that was scanned. Patient's pain was relieved with 0.25mg of Dilaudid.
[2025-07-18 10:21] LABS: Hematocrit 29.9 % (36-47); Hemoglobin 9.20 g/dL (11.27-16.99); Mean Corpuscular HGB Conc 30.8 g/dL (30-55); Mean Corpuscular Hemoglobin 27.5 pg (27-33); Mean Corpuscular Volume 89.5 fl (85-98); Nucleated Red Blood Cells % 0 %; Platelet Count 621 10^3/cmm (157-399); Red Blood Count 3.34 10^6/uL (3.85-5.65); White Blood Count 10.27 10^3/uL (3.29-11.43)
[2025-07-18 10:51] LABS: Alanine Aminotransferase 7 U/L (0-33); Albumin Level 3.5 g/dL (3.5-5.2); Alkaline Phosphatase 117 U/L (35-105); Anion Gap 17.5 (5-19); Aspartate Amino Transferase 18 U/L (0-32); Blood Urea Nitrogen 7 mg/dL (6-20); Calcium 9.4 mg/dL (8.5-10.5); Carbon Dioxide 27 mmol/L (22-29); Chloride 99 mmol/L (98-107); Creatinine Clr Calc Pharmacy 114.5945; Globulin 3.6 g/dL (1.3-4.6); Glucose 112 mg/dL (65-115); Magnesium 2.0 mg/dL (1.7-2.3); Osmolality Calculated 287 mOsm/kg (285-295); Potassium 4.5 mmol/L (3.5-5.1); Sodium 139 mmol/L (136-145); Total Protein 7.1 g/dL (6.6-8.7)
[2025-07-18 11:25] LABS: Carcinoembryonic Antigen 58.4 ng/mL (0.0-4.7)
[2025-07-18] MEDS: diphenhydrAMINE 50 mg/mL SDV 1mL IVP (12:19)
[2025-07-18] MEDS: PANITUMUMAB IV (12:48)
[2025-07-18] MEDS: SODIUM CHLORIDE 0.9% IV (12:48)
[2025-07-18 14:32] VITALS: BP 94/62; PULSE 83; TEMP 36.7; O2SAT 98
== END 2025-07-23 23:59 | disposition home or self-care (01) ==
PROVIDERS: Internal Medicine; Nurse Practitioner; PCP Family Medicine; Visit Provider Internal Medicine
DX: Z51.11 Encounter for antineoplastic chemotherapy; C20 Malignant neoplasm of rectum; Z79.899 Other long term (current) drug therapy; Z53.9 Procedure and treatment not carried out, unspecified reason
CPT/HCPCS: 36415; 36591; 74177; 80053; 82378; 82728; 83540; 83550; 83735; 85007; 85025; 86850; 86900; 96360; 96365; 96374; 96375; 96413; A4222; J1171; J1200; J1335; J1437; J2997; J3490; J7030; J7050; J9303; J9999

== ENCOUNTER 2025-08-22 09:59 | Oncology outpatient (recurring) (ONCR) | payer BC, MEDICAID, SELFPAY ==
[2025-07-25 12:09] LABS: Hematocrit 30.2 % (36-47); Hemoglobin 9.40 g/dL (11.27-16.99); Mean Corpuscular HGB Conc 31.1 g/dL (30-55); Mean Corpuscular Hemoglobin 27.7 pg (27-33); Mean Corpuscular Volume 89.1 fl (85-98); Nucleated Red Blood Cells % 0 %; Platelet Count 455 10^3/cmm (157-399); Red Blood Count 3.39 10^6/uL (3.85-5.65); White Blood Count 4.93 10^3/uL (3.29-11.43)
[2025-07-25 12:31] LABS: Alanine Aminotransferase < 5 U/L (0-33); Albumin Level 3.9 g/dL (3.5-5.2); Alkaline Phosphatase 106 U/L (35-105); Anion Gap 17.9 (5-19); Aspartate Amino Transferase 13 U/L (0-32); Blood Urea Nitrogen 10 mg/dL (6-20); Calcium 9.6 mg/dL (8.5-10.5); Carbon Dioxide 26 mmol/L (22-29); Chloride 93 mmol/L (98-107); Creatinine Clr Calc Pharmacy 110.0116; Globulin 3.6 g/dL (1.3-4.6); Glucose 107 mg/dL (65-115); Osmolality Calculated 276 mOsm/kg (285-295); Potassium 3.9 mmol/L (3.5-5.1); Sodium 133 mmol/L (136-145); Total Protein 7.5 g/dL (6.6-8.7)
[2025-08-01 10:55] LABS: Hematocrit 27.8 % (36-47); Hemoglobin 8.40 g/dL (11.27-16.99); Mean Corpuscular HGB Conc 30.2 g/dL (30-55); Mean Corpuscular Hemoglobin 26.7 pg (27-33); Mean Corpuscular Volume 88.3 fl (85-98); Nucleated Red Blood Cells % 0 %; Platelet Count 451 10^3/cmm (157-399); Red Blood Count 3.15 10^6/uL (3.85-5.65); White Blood Count 3.42 10^3/uL (3.29-11.43)
[2025-08-01 11:18] LABS: Alanine Aminotransferase < 5 U/L (0-33); Albumin Level 3.6 g/dL (3.5-5.2); Alkaline Phosphatase 86 U/L (35-105); Anion Gap 16.9 (5-19); Aspartate Amino Transferase 12 U/L (0-32); Blood Urea Nitrogen 12 mg/dL (6-20); Calcium 9.6 mg/dL (8.5-10.5); Carbon Dioxide 26 mmol/L (22-29); Chloride 99 mmol/L (98-107); Creatinine Clr Calc Pharmacy 91.6763; Globulin 3.6 g/dL (1.3-4.6); Glucose 103 mg/dL (65-115); Osmolality Calculated 286 mOsm/kg (285-295); Potassium 3.9 mmol/L (3.5-5.1); Sodium 138 mmol/L (136-145); Total Protein 7.2 g/dL (6.6-8.7)
[2025-08-01 11:53] VITALS: BP 97/63; PULSE 113; RESP 16; TEMP 36.7; O2SAT 99
[2025-08-01] MEDS: ondansetron 2 mg/ML SDV 2 mL 8 MG IVP (12:18)
[2025-08-01] MEDS: pantoprazole 40 mg SDV IVP (12:22)
[2025-08-01] MEDS: diphenhydrAMINE 50 mg/mL SDV 1mL IVP (12:25)
[2025-08-01] MEDS: PANITUMUMAB IV (13:02)
[2025-08-01] MEDS: SODIUM CHLORIDE 0.9% IV (13:02)
[2025-08-01 14:42] VITALS: BP 90/60; PULSE 86; RESP 17; TEMP 37; O2SAT 99
[2025-08-15 12:22] LABS: Hematocrit 27.5 % (36-47); Hemoglobin 8.30 g/dL (11.27-16.99); Mean Corpuscular HGB Conc 30.2 g/dL (30-55); Mean Corpuscular Hemoglobin 26.3 pg (27-33); Mean Corpuscular Volume 87.0 fl (85-98); Nucleated Red Blood Cells % 0 %; Platelet Count 514 10^3/cmm (157-399); Red Blood Count 3.16 10^6/uL (3.85-5.65); White Blood Count 12.41 10^3/uL (3.29-11.43)
[2025-08-15 12:44] LABS: Alanine Aminotransferase < 5 U/L (0-33); Albumin Level 3.4 g/dL (3.5-5.2); Alkaline Phosphatase 132 U/L (35-105); Anion Gap 18.9 (5-19); Aspartate Amino Transferase 10 U/L (0-32); Blood Urea Nitrogen 16 mg/dL (6-20); Calcium 9.2 mg/dL (8.5-10.5); Carbon Dioxide 24 mmol/L (22-29); Chloride 97 mmol/L (98-107); Creatinine Clr Calc Pharmacy 41.7450; Globulin 3.7 g/dL (1.3-4.6); Glucose 111 mg/dL (65-115); Osmolality Calculated 284 mOsm/kg (285-295); Potassium 3.9 mmol/L (3.5-5.1); Sodium 136 mmol/L (136-145); Total Protein 7.1 g/dL (6.6-8.7)
--- NOTE | 2025-08-15 14:30 | USCV_ITS ---
Aurora Corrales Age: 35 Gender: F : 1990 Exam Date: 08/15/2025 14:34 Ordering Phys: Tricia Schuler NP Technologist: Exam [place] [facility] [place]: lt leg swelling PROCEDURES: Venous duplex imaging was performed in only the left lower extremity. The following venous structures were evaluated: common femoral vein, profunda vein, proximal portion of the greater saphenous vein, superficial femoral vein, and the popliteal vein. In addition, the posterior tibial and peroneal trunk were evaluated. FINDINGS: Normal 2-D Doppler and augmentation and compressibility throughout the lower extremity venous structures. Additional imaging through the proximal calf veins also reveals no thrombus. Limited evaluation of the greater saphenous vein is patent with no thrombus. CONCLUSIONS No evidence of left lower extremity DVT. Ottoniel Grant MD (Electronically Signed) Final Date: 15 August 2025 16:49 S
[2025-08-15 14:46] LABS: Carcinoembryonic Antigen 52.4 ng/mL (0.0-4.7)
[2025-08-15 15:05] LABS: Iron 21 ug/dL (37-145); Total Iron Binding Capacity 98 mcg/dl; Unsaturated Iron Binding 77 ug/dL (112-347)
[2025-08-15 15:19] LABS: Ferritin 1163 ng/mL (15-150)
[2025-08-15 16:06] VITALS: BP 112/77; PULSE 112; RESP 16; TEMP 36.8
--- NOTE | 2025-08-20 17:00 | CT_ITS ---
WS: [id number] CT CHEST, ABDOMEN AND PELVIS WITH CONTRAST HISTORY: venous congestion abd, sob and peritoneal pain, history of rectal carcinoma. TECHNIQUE: Contiguous 5 mm axial imaging performed through the chest, abdomen and pelvis with IV contrast, oral contrast has been provided. Coronal and sagittal reformats chest. Coronal and sagittal reformats through the abdomen and pelvis. All CT scans at [facility] use at least one of these dose optimization techniques: automated exposure control; mA and/or kV adjustment per patient size (includes targeted exams where dose is matched to clinical indication); or iterative reconstruction. CONTRAST: Omnipaque 350; 100 mL IV. DLP: 506.80 mGy.cm COMPARISON: 07/02/2025, 07/06/2025, 08/17/[address]: Numerous, multilobar pulmonary nodules are identified. Nodules have slightly increased in size and number since 03/29/2025. The largest nodule is in the anterior RIGHT lower lobe, 10 mm. No pneumonia identified. No pericardial or pleural effusions. Pulmonary artery and the aorta are normal size. No mediastinal or hilar adenopathy. RIGHT sided Mediport identified in good position. No osteolytic or osteoblastic changes in the bones of the thorax. Abdomen and pelvis CT: There is a large hypoechoic lobulated mass centered in the RIGHT lobe of the liver. This mass is in the superior RIGHT lobe of the liver measuring 10.1 x 9.8 x 11.6 cm. This is a confluent mass with several components now contiguous. There is displacement centrally of the middle hepatic vein. New tiny, 5 mm hypoechoic nodule in the inferior RIGHT lobe of the liver. New 6 mm nodule LEFT lobe of the liver, posterior. Additional nodule adjacent to the LEFT portal vein. No intrahepatic duct dilatation. Gallbladder is normal. Spleen is slightly elongated at 12.7 cm. Tiny low- attenuation lesion in the spleen or the adjacent liver in the LEFT upper quadrant. The liver and spleen overlap and are difficult to separate. No pancreatic abnormality. Bilateral adrenal gland thickening. Heterogeneous appearance of the adrenal glands highly suspicious for metastatic disease. Progressed since 07/06/2025. Normal aorta. New bilateral hydronephrosis has developed since 07/06/2025. Ureters are mildly dilated but difficult to trace in their entirety as there is a very little fat the ureters. Distal ureters are being obstructed by the neoplastic process in the pelvis. Retroperitoneal lymphadenopathy. Cluster of lymph nodes posterior to the LEFT renal vein measures 2.5 x 3.0 cm. There are additional abnormal retroperitoneal lymph nodes in the para-aortic and aortocaval distributions. Some of these lymph nodes are necrotic. Large lymph node in the LEFT pelvis measures 4.9 x 3.5 cm and contains calcifications. This is probably a treated lymph node but there are still PET/CT positive findings noted on 04/05/2025. Numerous necrotic masses are noted within the pelvis. These are central and bilateral masses consistent with metastatic disease which have not improved. The entire mass centered within the pelvis measures 9.0 x 14.0 x 8.3 cm and is causing mass effect upon the adjacent structures including the GI tract and bladder. There is invasion into the mesorectal fat in the presacral soft tissue. Extension into the RIGHT gluteus radha muscle suspected. There is soft tissue tumor at the anal verge, greater on the RIGHT. The previously described air within these collections has resolved. Increased fluid in the small bowel and proximal colon. LEFT lower quadrant colostomy is identified. No destructive bone lesions. CT/CT chest abdpel w/*[id number] IMPRESSION: 1. Numerous multilobar pulmonary nodules are identified which have slightly in creased in size and number since 03/29/2025. Largest nodule anterior RIGHT lower lobe measures 10 mm. 2. Confluent metastatic lesions within the liver. The largest mass measures 10 .1 x 9.8 x 11.6 cm in the RIGHT lobe with mass effect upon the middle hepatic v ein. Additional scattered smaller metastatic lesions. 3. Bilateral adrenal metastatic nodules. 4. Extensive retroperitoneal lymphadenopathy which has progressed since 025. 5. New bilateral hydronephrosis. Distal ureters are being obstructed by the ne oplastic mass in the pelvis. 6. Large central confluent mass centered in the pelvis with necrotic areas and areas of enhancement measures 9.0 x 14.0 x 8.3 cm. There is mass effect upon t he adjacent GI tract, urinary bladder and there does appear to be obstruction o f the ureters. 7. Previously described air within the perineum has decreased. There are still peripherally enhancing masses which may be residual infection or tumor. 8. New fluid distention of the small bowel and colon. Suspect obstructive comp onent developing of the GI tract. 9. LEFT lower quadrant ostomy site. Distal colon at the colostomy site is not dilated.
[2025-08-20] MEDS: iohexol 350 mg/mL 500 mL Btl (per mL) PO (17:15)
[2025-08-20] MEDS: iohexol 350 mg/mL 500 mL Btl (per mL) IV (17:15)
== END 2025-08-22 10:48 ==
PROVIDERS: Nurse Practitioner Family; PCP Family Medicine; Visit Provider Nurse Practitioner
DX: Z53.9 Procedure and treatment not carried out, unspecified reason (principal)
CPT/HCPCS: 36591; 71260; 74177; 80053; 82378; 82728; 83540; 83550; 85025; 93971; 96360; 96375; 96413; 96523; A4222; J1200; J2405; J2470; J3490; J7030; J7050; J9303; J9999

== ENCOUNTER 2025-08-22 10:48 | Emergency (ER) | payer BC, MEDICAID, SELFPAY ==
[2025-08-22] VITALS (16 sets, daily range): BP systolic 97–121; BP diastolic 67–85; PULSE 74–146; RESP 12–97; TEMP 36.6–37.3; O2SAT 98–100
--- NOTE | 2025-08-22 10:58 | CT_ITS ---
WS: [id number] CT ABDOMEN AND PELVIS NONCONTRAST HISTORY: flank pain TECHNIQUE: Imaging performed through the abdomen and pelvis. Coronal and sagittal reformats are submitted. All CT scans at [facility] use at least one of these dose optimization techniques: automated exposure control; mA and/or kV adjustment per patient size (includes targeted exams where dose is matched to clinical indication); or iterative reconstruction. DLP: 361.87 mGy.cm COMPARISON: 08/20/2025 Lower thorax: Patient has known metastatic pulmonary nodules. The largest anterior RIGHT lower lobe is 10 mm. These nodules were recently described. No change in appearance of the heart. Liver: There is a large low-attenuation mass centered in the RIGHT lobe of the liver. Patient has no confluent hepatic metastatic disease. Gallbladder: High density layering the gallbladder is most likely vicarious excretion. Pancreas: Not well visualized. Spleen: Normal. Adrenal glands: Poorly visualized but patient has known bilateral adrenal metastatic lesions. Right kidney: Moderate RIGHT hydronephrosis. Contrast is still within the RIGHT kidney from the CT of 08/20/2025. There is delayed excretion. Moderate RIGHT hydroureteronephrosis. Ureter is visualized throughout nearly its entire course and is completely obliterated deep in the RIGHT adnexa. Left kidney: Moderate LEFT hydronephrosis. Delayed excretion from the kidney. LEFT hydronephrosis. Patient has a duplicated renal collecting system. Both ureters are slightly dilated with delayed excretion. Distal ureters are obstructed near the UV junction. Aorta: Normal abdominal aorta, no aneurysm or atherosclerosis. Patient has known mesenteric and retroperitoneal lymphadenopathy. Better visualized and described on the contrast CT from 08/20/2025. GI tract: Increased fluid in the small bowel and colon. At least partial obstruction. The obstruction of the GI tract is most likely due to the large pelvic mass which cannot be from portions of the colon or small bowel. Abdominal wall: Diffuse soft tissue anasarca. LEFT lower quadrant ostomy site. Pelvis: Patient has a known large neoplastic, multiloculated mass in the pelvis from known rectal cancer. This mass was better visualized on the CT from 08/20/2025. Osseous structures: Unremarkable. CT/CT kidney stone [id number] IMPRESSION: 1. Patient has known metastatic disease from rectal carcinoma. Please refer to the CT report from 08/20/2025 for further details. 2. Moderate bilateral hydroureteronephrosis. There is delayed excretion from t he kidneys. Ureters are obstructed distally from the neoplastic disease in the pelvis. There is a duplicated collecting system on the LEFT. Both distal ureter s are obstructed just proximal to the UV junction. 3. Dilated fluid-filled small bowel and RIGHT colon. Moderate obstructive comp onent of the GI tract. Obstruction is probably also related to the large tumor in the pelvis which is inseparable from the GI tract. 4. Diffuse soft tissue anasarca has developed since 08/20/2025. May be compone nt of renal failure. Notified Vin Knight DO at 08/22/2025 11:36 AM.
--- NOTE | 2025-08-22 11:07 | ECG_ITS ---
[employer] Test Date: 2025-08-22 Pat Name: Aurora Corrales Department: Room: Gender: Female [employer]istics Support: : 1990 Requested By: Vin Shane Order Number: [id number] Reading MD: CHARLES DAVIS Measurements Intervals [place] Rate: 152 P: 78 MA: 106 QRS: 85 QRSD: 82 T: -36 QT: 251 QTc: 399 Interpretive Statements SINUS TACHYCARDIA WITH SHORT MA INTERVAL, POSSIBLE ATRIAL FLUTTER ST DEVIATION AND MODERATE T-WAVE ABNORMALITY, CONSIDER INFERIOR ISCHEMIA [-0.1+ mV T-WAVE IN II/aVF] CRITICAL TEST RESULT INTERPRETATION BASED ON A DEFAULT AGE OF 40 YEARS No previous ECG available for comparison Electronically Signed On 08-24-2025 21:18:20 CDT by CHARLES DAVIS [email or web address]
--- NOTE | 2025-08-22 11:12 | W.ED.ARRPALP ---
HPI - Arrhythmia/Palpitations General: Chief Complaint: Arrhythmia/Palpitations Stated Complaint: sent by Maria Eugenia Time Seen by Provider: 08/22/25 11:11 History of Present Illness: 35-year-old female with a history of rectal CA with significant metastasis directed to the emergency room based on abnormal labs and abnormal CT done by her oncologist earlier this week that shows bilateral hydronephrosis which is new there is impingement the tumor mass on her ureters. Her creatinine is also increased Typical baseline is 0.5-0.6 she is up to 1.4 yesterday. She is generally had a little bit of a low-grade fever and not feeling as well. On arrival here she states she is somewhat nauseous no vomiting. She has noticed some decreased urine output. Related Data Home Medications ?Medication ?Instructions ?Recorded ?Confirmed CBD gummy 5 mg PO 1XD PRN Pain 05/09/24 08/22/25 multivitamin 1 tab PO DAILY 05/09/24 08/22/25 cholecalciferol (vitamin D3) 1,250 1,250 mcg PO DAILY 06/25/25 08/22/25 mcg (50,000 unit) capsule amoxicillin 875 mg-potassium 1 tab PO BID 07/09/25 08/22/25 clavulanate 125 mg tablet Previous Rx's ?Medication ?Instructions ?Recorded lorazepam 1 mg tablet 0.5 - 1 mg (0.5 - 1 x 1 mg) PO Q6H 12/19/24 Held on 12/25/24. PRN severe nausea #30 tabs Instructions: Resume on 12/26/24. ondansetron HCl 4 mg tablet 4 mg PO Q6H PRN nausea and 12/19/24 vomiting #30 tabs levofloxacin 750 mg tablet 750 mg PO DAILY 7 days #7 tabs 07/02/25 prochlorperazine maleate 10 mg 10 mg PO Q4H PRN mild nausea #30 07/09/25 tablet (Compazine) tabs oxycodone 10 mg tablet 20 mg (2 x 10 mg) PO Q4H PRN pain 07/18/25 30 days #200 tabs clindamycin phosphate 1 % lotion 1 applic topical BID rash #60 mL 07/25/25 triamcinolone acetonide 0.1 % 1 applic topical BID PRN rash #60 10/02/25 lotion mL morphine 30 mg tablet,extended 30 mg PO Q12H 30 days #60 tabs 07/29/25 release trifluridine 15 mg-tipiracil 6.14 2 tab PO BID #40 tabs 08/01/25 mg tablet (Lonsurf) trifluridine 20 mg-tipiracil 8.19 1 tab PO BID #20 tabs 25 mg tablet morphine 15 mg tablet,extended 15 mg PO Q12H 30 days #60 tabs 08/13/25 release Allergies Allergy/AdvReac Type Severity Reaction Status Date / Time shellfish derived Allergy Mild nothing Verified 08/22/25 11:11 noticeable Review of Systems Const: Denies: fever(s) or chills Card: Denies: chest pain Resp: Denies: dyspnea GI: Denies: abdominal pain : Denies: dysuria, urinary frequency or urinary urgency Musc: Denies: neck pain or back pain Skin/Breast: Denies: rash PFSH ED PFSH: Medical History Fistula Colostomy in place Iron deficiency anemia Rectal cancer Surgical History Port-A-Cath in place History of colonoscopy (04/19/24) Family History Other Cancer Stroke Denies family history of Diabetes CAD (coronary artery disease) Chronic kidney disease (CKD) Lung disease Social History Smoking and tobacco/nicotine status: never used tobacco/nicotine Second hand smoke exposure: Yes Alcohol intake: never Substance/Drug Use: never Lives independently: Yes Marital status: Single Physical Exam Const: COMMON NORMALS: no acute distress GENERAL APPEARANCE: cooperative and comfortable ORIENTATION/CONSCIOUSNESS: Yes awake, Yes oriented to person, Yes oriented to place and Yes oriented to time HENMT: COMMON NORMALS: normocephalic, atraumatic and hearing grossly normal bilaterally HEAD & SCALP: normocephalic and atraumatic Resp: COMMON NORMALS: normal respiratory effort, No retractions, No use of accessory muscles and clear to auscultation bilaterally AUSCULTATION: clear to auscultation bilaterally Cardio: COMMON NORMALS: regular rhythm and No murmurs present (Cardio) RATE: tachycardic RHYTHM: regular rhythm GI: COMMON NORMALS: Soft to palpation and No hepatosplenomegaly present AUSCULTATION: Yes normoactive bowel sounds PALPATION: Yes Soft to palpation, No Tenderness to palpation present (GI), No Guarding due to palpation present (GI) and Yes No hepatosplenomegaly present Extremity: COMMON NORMALS: normal to inspection, capillary refill normal, no clubbing, cyanosis or edema, no calf tenderness and no pedal edema Neuro: SENSORIUM/ORIENTATION: Yes oriented to person, Yes oriented to place and Yes oriented to time Skin: COMMON NORMALS: no rashes or lesions noted GENERAL SKIN EXAM: no rashes or lesions noted Course Vital Signs: Vital signs: Vital Signs Temperature 97.9 F 08/22/25 14:24 Pulse Rate 102 H 08/22/25 16:00 Respiratory Rate 12 08/22/25 14:25 Blood Pressure 113/79 08/22/25 16:00 Pulse Oximetry 99 08/22/25 16:00 Oxygen Delivery Me thod Room Air 08/22/25 16:00 MDM - Arrhythmia/Palpitations Medical Decision Making Significant leukocytosis lactic acid is normal patient does have signs of cystitis her creatinine is worsened to 2.8. Question on her CT of ileus versus early partial bowel small bowel obstruction. Hydronephrosis still present. Discussed with patient she wishes to pursue treatment we do not have urology available here she may need a ureteral stent or percutaneous nephrostomy tubes. Will transfer [facility] where she has had her surgical oncology care in the past with Dr. Shah. Dr. Shah asked that she be transferred to the ICU. Cultures have been done and she has been given initial renally adjusted dose of Zosyn. Additionally patient when she arrived she was very tachycardic she is given a fluid bolus in addition to that she was given a unit of blood her hemoglobin dropped below 8. She is stable at time of discharge. Medical Records I reviewed the patient's medical records. Lab Data I reviewed the patient's lab results. 08/22/25 11:30 08/22/25 11:30 Radiology Impressions Abdomen/Pelvis CT 08/22/25 10:58 IMPRESSION: 1. Patient has known metastatic disease from rectal carcinoma. Please refer to the CT report from 08/20/2025 for further details. 2. Moderate bilateral hydroureteronephrosis. There is delayed excretion from the kidneys. Ureters are obstructed distally from the neoplastic disease in the pelvis. There is a duplicated collecting system on the LEFT. Both distal ureters are obstructed just proximal to the UV junction. 3. Dilated fluid-filled small bowel and RIGHT colon. Moderate obstructive component of the GI tract. Obstruction is probably also related to the large tumor in the pelvis which is inseparable from the GI tract. 4. Diffuse soft tissue anasarca has developed since 08/20/2025. May be component of renal failure. Notified Vin Knight DO at 08/22/2025 11:36 AM. Laboratory Results WBC 24.15 10^3/uL (3.29-11.43) H 08/22/25 11:30 RBC 2.87 10^6/uL (3.85-5.65) L 08/22/25 11:30 Hgb 7.60 g/dL (11.27-16.99) L 08/22/25 11:30 Hct 25.4 % (36-47) L 08/22/25 11:30 MCV 88.5 fl (85-98) 08/22/25 11:30 MCH 26.5 pg (27-33) L 08/22/25 11:30 MCHC 29.9 g/dL (30-55) L 08/22/25 11:30 RDW 20.2 % (12.1-15.1) H 08/22/25 11:30 Plt Count 509 10^3/cmm (157-399) H 08/22/25 11:30 MPV 9.4 fL (7.4-10.4) 08/22/25 11:30 Neut % (Auto) 89.0 % 08/22/25 11:30 Lymph % (Auto) 3.6 % 08/22/25 11:30 [place] % (Auto) 5.8 % 08/22/25 11:30 Eos % (Auto) 0.1 % 08/22/25 11:30 Baso % (Auto) 0.3 % 08/22/25 11:30 Neut # (Auto) 21.49 10^3/uL (1.8-7.7) H 08/22/25 11:30 Lymph # (Auto) 0.9 10^3/uL (0.8-4.8) 08/22/25 11:30 [place] # (Auto) 1.4 10^3/uL (0.2-0.9) H 08/22/25 11:30 Eos # (Auto) 0.0 10^3/uL (0.0-0.8) 08/22/25 11:30 Baso # (Auto) 0.1 10^3/uL (0.0-0.1) 08/22/25 11:30 Nucleated RBC % (auto) 0 % 08/22/25 11: Nucleated RBCs # 0.0 /100WBC 08/22/25 11:30 Sodium 135 mmol/L (136-145) L 08/22/25 11:30 Potassium 4.0 mmol/L (3.5-5.1) 08/22/25 11:30 Chloride 96 mmol/L (98-107) L 08/22/25 11:30 Carbon Dioxide 20 mmol/L (22-29) L 08/22/25 11:30 Anion Gap 23.0 (5-19) H 08/22/25 11:30 BUN 38 mg/dL (6-20) H 08/22/25 11:30 Creatinine 2.8 mg/dL (0.5-0.9) H 08/22/25 11:30 GFR Calculation 19.5 mL/min (90-130) L 08/22/25 11:30 Glucose 118 mg/dL (65-115) H 08/22/25 11:30 Calculated Osmolality 290 mOsm/kg (285-295) 08/22/25 11:30 Lactic Acid 1.2 mmol/L (0.5-2.2) 08/22/25 11:30 Calcium 8.8 mg/dL (8.5-10.5) 08/22/25 11:30 Total Bilirubin 0.3 mg/dL (0.15-1.2) 08/22/25 11:30 AST 10 U/L (0-32) 08/22/25 11:30 ALT < 5 U/L (0-33) 08/22/25 11:30 Alkaline Phosphatase 167 U/L (35-105) H 08/22/25 11:30 Total Protein 7.1 g/dL (6.6-8.7) 08/22/25 11:30 Albumin 3.2 g/dL (3.5-5.2) L 08/22/25 11:30 Globulin 3.9 g/dL (1.3-4.6) 08/22/25 11:30 Lipase 9 U/L (13-60) L 08/22/25 11:30 Urine Color Yellow (Yellow) 08/22/25 12:08 Urine Appearance Cloudy (CLEAR) A 08/22/25 12:08 Urine pH 5.0 (5-7) 08/22/25 12:08 Ur Specific [place] 1.021 (1.005-1.030) 08/22/25 12:08 Urine Protein 1+ (Negative) A 08/22/25 12:08 Urine Glucose (UA) Negative (Normal) 08/22/25 12:08 Urine Ketones Negative (Negative) 08/22/25 12:08 Urine Blood 2+ (Negative) A 08/22/25 12:08 Urine Nitrate Negative (Negative) 08/22/25 12:08 Urine Bilirubin Negative (Negative) 08/22/25 12:08 Urine Urobilinogen 0.2 mg/dL (Negative) 08/22/25 12:08 Ur Leukocyte Esterase Trace (Negative) A 08/22/25 12:08 Urine RBC 0-2 /hpf (0-2) 08/22/25 12:08 Urine WBC 11-20 /hpf (0-5) H 08/22/25 12:08 Ur Squamous Epith Cells 0-5 /hpf (0-5) 08/22/25 12:08 Amorphous Sediment Not Reportable 08/22/25 12:08 Urine Bacteria None seen /hpf (NONE) 08/22/25 12:08 Hyaline Casts 29.78 /lpf 08/22/25 12:08 Blood Type A Positive 08/22/25 12:08 Rho(D) Type Rh positive 08/22/25 12:08 Antibody Screen Negative 08/22/25 12:08 Crossmatch See Detail 08/22/25 12:08 All radiology interpretation(s) finalized by discharge EKG Data EKG 1: I personally reviewed and interpreted this EKG as follows: Interpretation: EKG 1030 2025-08-[address] changes. Rate of 152 [place] interval 106 QTc 337. Other EKG comments: Abdomen/Pelvis CT 08/22/25 10:58 IMPRESSION: 1. Patient has known metastatic disease from rectal carcinoma. Please refer to the CT report from 08/20/2025 for further details. 2. Moderate bilateral hydroureteronephrosis. There is delayed excretion from the kidneys. Ureters are obstructed distally from the neoplastic disease in the pelvis. There is a duplicated collecting system on the LEFT. Both distal ureters are obstructed just proximal to the UV junction. 3. Dilated fluid-filled small bowel and RIGHT colon. Moderate obstructive component of the GI tract. Obstruction is probably also related to the large tumor in the pelvis which is inseparable from the GI tract. 4. Diffuse soft tissue anasarca has developed since 08/20/2025. May be component of renal failure. Notified Vin Knight DO at 08/22/2025 11:36 AM. 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
[2025-08-22 11:38] LABS: Hematocrit 25.4 % (36-47); Hemoglobin 7.60 g/dL (11.27-16.99); Mean Corpuscular HGB Conc 29.9 g/dL (30-55); Mean Corpuscular Hemoglobin 26.5 pg (27-33); Mean Corpuscular Volume 88.5 fl (85-98); Nucleated Red Blood Cells % 0 %; Platelet Count 509 10^3/cmm (157-399); Red Blood Count 2.87 10^6/uL (3.85-5.65); White Blood Count 24.15 10^3/uL (3.29-11.43)
[2025-08-22 11:52] LABS: Alanine Aminotransferase < 5 U/L (0-33); Albumin Level 3.2 g/dL (3.5-5.2); Alkaline Phosphatase 167 U/L (35-105); Anion Gap 23.0 (5-19); Aspartate Amino Transferase 10 U/L (0-32); Blood Urea Nitrogen 38 mg/dL (6-20); Calcium 8.8 mg/dL (8.5-10.5); Carbon Dioxide 20 mmol/L (22-29); Chloride 96 mmol/L (98-107); Creatinine Clr Calc Pharmacy 25.4647; Globulin 3.9 g/dL (1.3-4.6); Glucose 118 mg/dL (65-115); Lactic Sepsis W/Reflex 1.2 mmol/L (0.5-2.2); Lipase 9 U/L (13-60); Osmolality Calculated 290 mOsm/kg (285-295); Potassium 4.0 mmol/L (3.5-5.1); Sodium 135 mmol/L (136-145); Total Protein 7.1 g/dL (6.6-8.7)
[2025-08-22 12:20] LABS: Glucose Urine UA Negative (Normal); Nitrate Urine Negative (Negative); Specific Gravity, Urine 1.021 (1.005-1.030)
[2025-08-22 12:25] LABS: Add Urine Microscopic? YES; Universal Test for UA Present (0)
[2025-08-22] MEDS: piperacillin-tazobactam 2.25 GM in sodium chloride 0.9% (plus) 50 ML IV (12:32)
[2025-08-22 12:36] LABS: UA Slide Review UA Slide Review Perf
--- NOTE | 2025-08-22 14:12 | PC.NURSE ---
Physician to bedside to update PT about transfer to [place]
== END 2025-08-22 19:15 | disposition short-term general hospital (02) ==
PROVIDERS: Emergency Provider Family Medicine; PCP Family Medicine
DX: I49.9 Cardiac arrhythmia, unspecified (principal); N17.9 Acute kidney failure, unspecified; C20 Malignant neoplasm of rectum; D64.9 Anemia, unspecified; A41.9 Sepsis, unspecified organism; N13.1 Hydronephrosis with ureteral stricture, not elsewhere classified; N30.90 Cystitis, unspecified without hematuria
CPT/HCPCS: 36415; 36430; 74176; 80053; 81001; 83605; 83690; 85025; 86850; 86900; 86920; 87040; 93005; 96374; 99285; J2543; J7030; J9999; P9016